=== PATIENT | female | born 1935 | race Caucasian/White ===

== ENCOUNTER 2020-02-05 12:33 | Emergency (ER) | payer OTHER, SELFPAY ==
[2020-02-05 12:34] VITALS: BP 148/64; PULSE 98; RESP 17; TEMP 37.2; O2SAT 98
[2020-02-05 13:03] LABS: Basophils Percent Auto 0.3 % (0.2-1.2); Eosinophils Percent Auto 0.5 % (0-4.4); Hematocrit 38.5 % (37.0-47.0); Hemoglobin 12.8 g/dL (12.0-15.0); Immature Granulocyte Absolute 0.02 K/mm3 (0.00-0.031); Immature Granulocyte Percent A 0.3 % (0-0.5); Lymphocytes Absolute Auto 1.02 K/mm3 (0.9-3.2); Lymphocytes Percent Auto 15.8 % (18.3-44.2); Mean Corpuscular HGB Conc 33.2 g/dl (32-36); Mean Corpuscular Hemoglobin 29.6 pg (26-34); Mean Corpuscular Volume 89.1 fl (80-100); Mean Platelet Volume 10.5 fl (7.4-10.4); Monocytes Absolute Auto 0.8 K/mm3 (0.1-0.6); Monocytes Percent Auto 11.9 % (2.6-8.5); Neutrophils Absolute Auto 4.6 K/mm3 (1.3-6.7); Neutrophils Percent Auto 71.2 % (45.5-73.1); Platelet Count Result 303 k/mm3 (150-375); Red Blood Count 4.32 M/mm3 (4.2-5.4); Red Cell Distribution Width 13.3 % (11.5-14.5); White Blood Count 6.5 K/mm3 (4.5-10.0)
[2020-02-05 13:07] LABS: Add Urine Microscopic? YES; Appearance Urine Clear (Clear); Bacteria Urine Trace /hpf; Bilirubin Urine Negative (Negative); Color Urine Yellow (Yellow); Glucose Urine UA Negative (Negative); Hyaline Casts Urine 20-29 /lpf; Ketones Urine Negative (Negative); Leukocyte Esterase Ur 3+ LEU/UL (Negative); Mucus Urine Few /lpf; Nitrate Urine Negative (Negative); Protein Urine Negative (Negative); Specific Grav Ur 1.017 (1.001-1.035); Squamous Epithelial Cell Urine Occasional /hpf (Few); Urobilinogen Urine Negative mg/dL (<2.0); WBC Clumps Urine Present /HPF; WBC Urine 51-75 /hpf
[2020-02-05 13:14] LABS: Blood Urine Negative (Negative)
[2020-02-05 13:18] LABS: Alanine Aminotransferase 15 U/L (4-35); Albumin Level 4.6 g/dL (3.5-5.1); Alkaline Phosphatase 87 U/L (38-126); Anion Gap 13.2 mmol/L (7-16); Aspartate Amino Transferase 37 U/L (14-36); Bilirubin,Total 0.8 mg/dL (0.2-1.3); Blood Urea Nitrogen 15 mg/dL (7-17); Calcium 9.1 mg/dL (8.4-10.2); Carbon Dioxide 29 mmol/L (22-30); Chloride 94 mmol/L (98-107); Estimated CRCL calculation 43 ml/min; Estimated Glomerular Filt Rate > 60; Glucose 124 mg/dL (65-105); Potassium 4.2 mmol/L (3.4-5.0); Sodium 132 mmol/L (137-145)
--- NOTE | 2020-02-05 14:00 | ED.ABDPAIN ---
HPI - Abdominal Pain General Chief Complaint: Urogenital-Female Stated Complaint: ?? UTI Time Seen by Provider: 02/05/20 13:42 Source: patient and family History of Present Illness HPI narrative: Frequent painful urination for the last 2 days. Patient denies any fever, chills, nausea, vomiting. Related Data Allergies Allergy/AdvReac Type Severity Reaction Status Date / Time Penicillins Allergy Unknown Unknown Verified 02/05/20 12:40 Review of Systems Review of Systems: Narrative: CONSTITUTIONAL: Denies fever, chills, or sweats. EYES: Denies visual changes, redness, or discharge. ENT: Denies rhinorrhea, congestion, sore throat, or otalgia. CARDIOVASCULAR: Denies chest pain, palpitations, or edema. RESPIRATORY: Denies cough or dyspnea. GASTROINTESTINAL: Denies abdominal pain, nausea, vomiting, or diarrhea. GENITOURINARY: Denies dysuria or hematuria. SKIN: Denies rash or itching. MUSCULOSKELETAL: Denies back pain, joint pain, or myalgia. NEUROLOGIC: Denies headache, numbness, or weakness. PSYCHIATRIC: Denies anxiety or depression. [facility] Family History Family History Father Cerebrovascular accident, Onset Age: 94 Sibling Family history of malignant neoplasm, Onset Age: 86 Acute myocardial infarction, Onset Age: 82 Family history of lung disease, Onset Age: 74 Social History Social History Smoking status: Never smoker Alcohol intake: never Gender identity (if verbalized by the patient): Female Exam Narrative: Exam Narrative: General appearance: Well-developed, well-nourished Skin: Normal color Head: Normocephalic, nontraumatic Eyes: Clear conjunctiva ENT: Oropharynx normal, ears normal, nose normal Neck: Supple, nontender Chest and respiratory: Airway patent, no respiratory distress, no accessory muscle use Heart: Regular rate/rhythm Abdomen: Soft, nontender, no organomegaly, quiet bowel sounds Vascular: Normal peripheral pulses, normal capillary refill. Musculoskeletal: Normal range of motion, nontender back Neurologic: Alert and oriented ?3, [employer] is normal as tested, no gross motor deficit Course Course Emergency Course: Stable Vital Signs Vital signs: Vital Signs Temperature 37.2 C 02/05/20 12:34 Pulse Rate 98 02/05/20 12:34 Respiratory Rate 17 02/05/20 12:34 Blood Pressure 148/64 H 02/05/20 12:34 Pulse Oximetry 98 02/05/20 12:34 Temperature 37.2 C 02/05/20 12:34 Pulse Rate 98 02/05/20 12:34 Respiratory Rate 17 02/05/20 12:34 Blood Pressure 148/64 H 02/05/20 12:34 Pulse Oximetry 98 02/05/20 12:34 MDM - Abdominal Pain MDM Narrative Medical decision making narrative: Urinary tract infection is my concern. Patient does not have fever, chills, nausea, vomiting. Oral antibiotic would be appropriate for discharge. Lab Data Result diagrams: 02/05/20 12:54 02/05/20 12:54 Labs: Lab Results 02/05/20 02/05/20 02/05/20 Range/Units 12:54 12:54 12:54 WBC 6.5 (4.5-10.0) K/mm3 RBC 4.32 (4.2-5.4) M/mm3 Hgb 12.8 (12.0-15.0) g/dL Hct 38.5 (37.0-47.0) % MCV 89.1 (80-100) fl MCH 29.6 (26-34) pg MCHC 33.2 (32-36) g/dl RDW 13.3 (11.5-14.5) % Plt Count 303 (150-375) k/mm3 MPV 10.5 H (7.4-10.4) fl Immature Gran % (Auto) 0.3 (0-0.5) % Neut % (Auto) 71.2 (45.5-73.1) % Lymph % (Auto) 15.8 L (18.3-44.2) % Smith % (Auto) 11.9 H (2.6-8.5) % Eos % (Auto) 0.5 (0-4.4) % Baso % (Auto) 0.3 (0.2-1.2) % Lymph # (Auto) 1.02 (0.9-3.2) K/mm3 Smith # (Auto) 0.8 H (0.1-
[2020-02-05] MEDS: NITROFURANTOIN MONOHYD MACROCR 100 MG CAP PO (14:19)
[2020-02-05] MEDS: PHENAZOPYRIDINE HCL 100 MG TABLET 200 MG PO (14:19)
[2020-02-05 14:30] VITALS: BP 146/73; PULSE 72; RESP 15; O2SAT 99
== END 2020-02-05 14:31 | disposition home or self-care (01) ==
PROVIDERS: Emergency Medicine; Emergency Provider Emergency Medicine; PCP Emergency Medicine
DX: N30.00 Acute cystitis without hematuria (principal)
CPT/HCPCS: 36415; 80053; 81001; 85025; 87077; 87086; 87088; 87186; 99283; A9270

== ENCOUNTER 2020-09-18 13:58 | Outpatient (CLI) | payer OTHER, MEDICARE, SELFPAY | END 2020-09-18 13:59 | disposition home or self-care (01) | LOC: ANHCOVIDVC 13:58 | PROVIDERS: PCP Emergency Medicine | DX: Z23 Encounter for immunization (principal) | CPT/HCPCS: 0001A; 91300 ==

== ENCOUNTER 2020-10-09 14:08 | Outpatient (CLI) | payer OTHER, MEDICARE, SELFPAY | END 2020-10-09 14:09 | disposition home or self-care (01) | LOC: ANHCOVIDVC 14:08 | PROVIDERS: PCP Emergency Medicine | DX: Z23 Encounter for immunization (principal) | CPT/HCPCS: 0002A; 91300 ==

== ENCOUNTER 2021-05-05 13:15 | Outpatient (CLI) | payer OTHER, SELFPAY ==
[2021-05-05 14:21] LABS: Alanine Aminotransferase 16 U/L (4-35); Albumin Level 4.8 g/dL (3.5-5.1); Alkaline Phosphatase 100 U/L (38-126); Anion Gap 7 mmol/L (8-16); Aspartate Amino Transferase 36 U/L (14-36); Bilirubin,Total 0.4 mg/dL (0.2-1.3); Blood Urea Nitrogen 17 mg/dL (7-17); Calcium 9.9 mg/dL (8.4-10.2); Carbon Dioxide 33 mmol/L (22-30); Chloride 99 mmol/L (98-107); Estimated Glomerular Filt Rate > 60; Glucose 133 mg/dL (65-110); Potassium 3.9 mmol/L (3.4-5.0); Sodium 139 mmol/L (137-145)
[2021-05-08 14:19] LABS: Vitamin D 1,25 (OH)2 Total 36 pg/mL (18-72); Vitamin D2 1,25 (OH)2 <8 pg/mL; Vitamin D3 1,25 (OH)2 36 pg/mL
== END 2021-05-05 13:16 | disposition home or self-care (01) ==
PROVIDERS: PCP Emergency Medicine; Visit Provider Emergency Medicine
DX: E78.5 Hyperlipidemia, unspecified (principal); E55.9 Vitamin D deficiency, unspecified
CPT/HCPCS: 36415; 80053; 82652

== ENCOUNTER 2021-11-15 11:46 | Outpatient (CLI) | payer OTHER, SELFPAY ==
--- NOTE | ~2021-11-15 | XR_ITS ---
EXAMINATION: XR chest 2V DATE: 11/15/2021 12:25 INDICATION: Right-sided chest pain TECHNIQUE: AP and lateral views of the chest are obtained. COMPARISON: 09/22/2015 FINDINGS: There is an ill-defined masslike opacity of the right upper lobe with associated volume los s. There is a nodule of the right lower lobe. There are also nodules in the left lung base. A small r ight pleural effusion is present. There is no pneumothorax. The cardiomediastinal silhouette is junaid l. IMPRESSION: 1. Ill-defined opacity of the right lower lobe and multiple lung nodules raising concern for malignan cy, metastatic versus primary. Differential includes multifocal pneumonia. Further evaluation with CT of the chest is recommended. 2. Small right pleural effusion. Reviewed, dictated and finalized at location A. IMPRESSION: 1. Ill-defined opacity of the right lower lobe and multiple lung nodules jeanne molina concern for malignancy, metastatic versus primary. Differential includes mult ifocal pneumonia. Further evaluation with CT of the chest is recommended. 2. Small right pleural effusion.
[2021-11-15 13:30] LABS: Basophils Percent Auto 0.1 % (0.2-1.2); Eosinophils Percent Auto 0.1 % (0-4.4); Hematocrit 31.2 % (37.0-47.0); Hemoglobin 10.6 g/dL (12.0-15.0); Immature Granulocyte Absolute 0.09 K/mm3 (0.00-0.031); Immature Granulocyte Percent A 0.6 % (0-0.5); Lymphocytes Absolute Auto 0.32 K/mm3 (0.9-3.2); Lymphocytes Percent Auto 2.3 % (18.3-44.2); Mean Corpuscular Hemoglobin 28.9 pg (26-34); Mean Platelet Volume 8.7 fl (7.4-10.4); Monocytes Absolute Auto 1.1 K/mm3 (0.1-0.6); Monocytes Percent Auto 7.6 % (2.6-8.5); Neutrophils Absolute Auto 12.4 K/mm3 (1.3-6.7); Neutrophils Percent Auto 89.3 % (45.5-73.1); Platelet Count Result 522 k/mm3 (150-375); Red Blood Count 3.67 M/mm3 (4.2-5.4); Red Cell Distribution Width 12.1 % (11.5-14.5); White Blood Count 13.9 K/mm3 (4.5-10.0)
[2021-11-15 13:55] LABS: Alanine Aminotransferase 12 U/L (4-35); Albumin Level 3.6 g/dL (3.5-5.1); Alkaline Phosphatase 117 U/L (38-126); Anion Gap 7 mmol/L (8-16); Aspartate Amino Transferase 25 U/L (14-36); Bilirubin,Total 0.6 mg/dL (0.2-1.3); Blood Urea Nitrogen 8 mg/dL (7-17); Calcium 8.5 mg/dL (8.4-10.2); Carbon Dioxide 29 mmol/L (22-30); Chloride 83 mmol/L (98-107); Estimated Glomerular Filt Rate > 60; Glucose 116 mg/dL (65-110); Potassium 3.7 mmol/L (3.4-5.0); Sodium 119 mmol/L (137-145)
[2021-11-18 12:16] LABS: Vitamin D 1,25 (OH)2 Total 78 pg/mL (18-72); Vitamin D2 1,25 (OH)2 <8 pg/mL; Vitamin D3 1,25 (OH)2 78 pg/mL
== END 2021-11-15 11:47 | disposition home or self-care (01) ==
PROVIDERS: PCP Emergency Medicine; Visit Provider Emergency Medicine
DX: R53.83 Other fatigue (principal); R07.9 Chest pain, unspecified; Z13.6 Encounter for screening for cardiovascular disorders; E55.9 Vitamin D deficiency, unspecified; R91.8 Other nonspecific abnormal finding of lung field; J90 Pleural effusion, not elsewhere classified
CPT/HCPCS: 36415; 71046; 80053; 82652; 84443; 85025

== ENCOUNTER 2021-11-15 15:51 | Inpatient (IN) | payer OTHER, SELFPAY ==
[2021-11-15] VITALS (11 sets, daily range): BP systolic 118–146; BP diastolic 50–70; PULSE 87–105; RESP 16–29; TEMP 36.6–38.1; O2SAT 93–98; BMI 19.6; BMI 21.5
--- NOTE | ~2021-11-15 | XR_ITS ---
EXAMINATION: XR chest 1V portable DATE: 11/22/2021 16:55 INDICATION: One hour post percutaneous right lung biopsy TECHNIQUE: frontal view of the chest was obtained. COMPARISON: Chest radiograph dated 11/23/2019 2. FINDINGS: Right upper extremity peripherally inserted central venous catheter (PICC) tip at the caudal superio r vena cava. No interval change in a large masslike opacity right midlung zone with multiple smaller bilateral nodules in the mid and lower lung zones suspicious for primary bronchogenic carcinoma and a ssociated metastatic disease. Tiny right pleural effusion. Calcified nodules in the left midlung zone with calcite left hilar lymph nodes consistent with old granulomatous disease. No pneumothorax. Card ial mediastinal silhouette is normal. IMPRESSION: 1. No pneumothorax post right lung percutaneous biopsy. 2. Large right upper lobe mass with multiple smaller pulmonary nodules in the bilateral mid and lower lung zones suspicious for primary bronchogenic carcinoma and associated metastatic disease. Post obs tructive pneumonia not excludable in the right upper lobe. Reviewed, dictated and finalized at location A. IMPRESSION: 1. No pneumothorax post right lung percutaneous biopsy. 2. Large right upper lobe mass with multiple smaller pulmonary nodules in the b ilateral mid and lower lung zones suspicious for primary bronchogenic carcinoma and associated metastatic disease. Post obstructive pneumonia not excludable i n the right upper lobe.
--- NOTE | ~2021-11-15 | XR_ITS ---
EXAMINATION: XR barium swallow modified DATE: 11/24/2021 11:42 INDICATION: Cough TECHNIQUE: Modified barium esophagram was performed by myself to administered fluoroscopy, in conjun ction with speech pathologist who administered barium in varying consistencies as per speech patholog ist documentation. This was recorded on tape. A single fluoroscopic spot image was recorded. The DAP for this procedure was 0.95 Gycm2. Fluoroscopy exposure time was 1.7 minutes. FINDINGS: Oral stage: Adequate function. Pharyngeal phase: Adequate function. Laryngeal penetration: None. Aspiration: None. Laryngeal sensitivity: Not applicable. IMPRESSION: Unremarkable modified barium swallow. Please refer to speech pathologist findings and [facility] feeding recommendations. Reviewed, dictated and finalized at location A. IMPRESSION: Unremarkable modified barium swallow. Please refer to speech pathol ogist findings and specific feeding recommendations.
--- NOTE | ~2021-11-15 | CT_ITS ---
EXAMINATION: CT biopsy lung w/imaging DATE: 11/22/2021 15:41 INDICATION: Multiple lung masses TECHNIQUE: The procedure including the risks and benefits was discussed with the patient. Risks discu ssed included infection, approximately 1/20 risk of symptomatic hemorrhage beyond mild hemoptysis, ap proximately 1/3 risk of pneumothorax, and approximately 1/10 risk of pneumothorax severe enough to wa rrant chest tube placement. The patient understood the risks and agreed to proceed. The patient was p laced in the left lateral decubitus position. The skin overlying the lateral right chest wall was pr epped and draped in sterile fashion. Anesthetic was administered with 1% lidocaine subcutaneously. A 19 gauge outer needle was advanced under CT guidance to the lesion of interest. A 20 gauge core bio psy needle was then used to obtain 4 core biopsy specimens. The needle was removed and the entry site was cleaned and dressed. There were no immediate complications. The dose-length product was 107.61 mGy-cm. FINDINGS: CT images demonstrate the outer needle tip just within a 3.6 x 2.3 cm pleural-based mass in the right lower lobe. There are multiple additional bilateral pulmonary nodules as well as a larger region of consolidation in the posterior segment of the right upper lobe. IMPRESSION: 1. Successful CT-guided biopsy of a 3.6 x 2.3 cm pleural-based mass in the right lower lobe. Reviewed, dictated and finalized at location A. IMPRESSION: 1. Successful CT-guided biopsy of a 3.6 x 2.3 cm pleural-based mass in the righ t lower lobe.
--- NOTE | ~2021-11-15 | XR_ITS ---
EXAMINATION: XR chest 1V portable INDICATION: Pneumonia and shortness of breath TECHNIQUE: Portable AP chest at 1202 hours COMPARISON: 11/26/2021 FINDINGS: A right upper extremity PICC ends with its tip in the midsuperior vena cava. Right upper lo be consolidation persists but is slightly improved. Multiple bilateral pulmonary nodules persist, faraz e of which have decreased in size. There is no pleural effusion or pneumothorax. The cardiomediastina l silhouette is normal. IMPRESSION: 1. Interval decrease in size of the right upper lobe consolidation and multiple pulmonary nodules, li tamra infection given the results of recent lung biopsy. Continued radiographic follow-up to resolutio n is recommended. Reviewed, dictated and finalized at location A. IMPRESSION: 1. Interval decrease in size of the right upper lobe consolidation and multiple pulmonary nodules, likely infection given the results of recent lung biopsy. C ontinued radiographic follow-up to resolution is recommended.
--- NOTE | ~2021-11-15 | XR_ITS ---
EXAMINATION: XR chest 1V DATE: 11/22/2021 15:46 INDICATION: Status post right lung biopsy TECHNIQUE: frontal view of the chest was obtained. COMPARISON: Chest radiograph dated 11/15/2021 FINDINGS: Right upper extremity peripherally inserted central venous catheter (PICC) tip at the caudal superio r vena cava. Persistent large triangular opacity in the right midlung zone along with several additio nal scattered smaller nodular opacities in the bilateral mid and lower lung zones. Additional increas ed indistinct interstitial pattern in the bilateral lower lung zones. Very small right pleural effusi on. No pneumothorax or left-sided pleural effusion. The cardiomediastinal silhouette is normal. IMPRESSION: 1. No pneumothorax post right lung percutaneous biopsy. 2. Large masslike opacity in right midlung zone and multiple smaller bilateral pulmonary nodules conc erning for malignancy/metastatic disease. 3. Increased interstitial pattern in the bilateral lower lung zones likely related to bronchiectatic changes involving the lingula, right middle and bilateral lower lobes on prior CT. 4. Very small right pleural effusion. Reviewed, dictated and finalized at location A. IMPRESSION: 1. No pneumothorax post right lung percutaneous biopsy. 2. Large masslike opacity in right midlung zone and multiple smaller bilateral pulmonary nodules concerning for malignancy/metastatic disease. 3. Increased interstitial pattern in the bilateral lower lung zones likely rela glenny to bronchiectatic changes involving the lingula, right middle and bilateral lower lobes on prior CT. 4. Very small right pleural effusion.
--- NOTE | ~2021-11-15 | CT_ITS ---
EXAMINATION: CT brain wo con DATE: 11/16/2021 09:24 INDICATION: Lung mass. Hyponatremia. TECHNIQUE: Computed tomography (CT) of the head was performed without intravenous contrast. The mA wa s adjusted according to patient size. Iterative reconstruction technique was employed. The dose-lengt h product was 605.33 mGy-cm. COMPARISON: None FINDINGS: There are scattered areas of low attenuation in the cerebral white matter. There is no intr acranial hemorrhage, acute infarction, or abnormal intracranial mass lesion. The ventricles are junaid l in size. There are likely changes of ocular lens replacement surgeries. There is mild mucosal thick ening in the ethmoid sinuses. The mastoid air cells are normal. IMPRESSION: 1. Moderate nonspecific cerebral white matter disease, which likely represents chronic small vessel i schemic disease. Reviewed, dictated and finalized at location D. IMPRESSION: 1. Moderate nonspecific cerebral white matter disease, which likely represents chronic small vessel ischemic disease.
--- NOTE | ~2021-11-15 | XR_ITS ---
EXAMINATION: XR chest 1V portable INDICATION: Shortness of breath TECHNIQUE: Portable AP chest at 0547 hours COMPARISON: 11/22/2021 FINDINGS: There is unchanged consolidation in the right upper lobe. In addition, multiple bilateral p ulmonary nodules are stable. A right upper extremity PICC ends with its tip in the midsuperior vena c katherine. There is a small right pleural effusion. The cardiomediastinal silhouette is normal. There is no pneumothorax. IMPRESSION: 1. Stable right upper lobe consolidation multiple bilateral pulmonary nodules, consistent with infect ion given the results of recent lung biopsy. An area of primary bronchogenic carcinoma in one of the nodules or masses remains a possibility. Radiographic follow-up to resolution is recommended. Reviewed, dictated and finalized at location A. IMPRESSION: 1. Stable right upper lobe consolidation multiple bilateral pulmonary nodules, consistent with infection given the results of recent lung biopsy. An area of p rimary bronchogenic carcinoma in one of the nodules or masses remains a possibi lity. Radiographic follow-up to resolution is recommended.
--- NOTE | ~2021-11-15 | CT_ITS ---
EXAMINATION: CT abdomen pelvis w con INDICATION: Hyponatremia, likely lung cancer TECHNIQUE: Computed tomographic images of the abdomen and pelvis were obtained after the administrati on of 100 cc of Omnipaque 350 intravenous contrast. The dose-length product (DLP) was 241.34 mGy-cm. Automated exposure control and iterative reconstruction technique were employed. COMPARISON: 06/15/2014 FINDINGS: There is a small left pleural effusion. There are multiple nodules of the visualized lower lobes including enhancing pleural-based nodules medially in the bilateral lung bases. Cysts of the li espinoza measure up to 5.6 cm in the left hepatic lobe. Punctate calcifications in an otherwise normal spl een likely represent healed granulomatous disease. The pancreas, gallbladder, and adrenal glands are normal. Cysts of the kidneys measure up to 2.1 cm on the right. No pathologically enlarged abdominal or pelvic lymph nodes are identified. There is no free intraperitoneal gas or evidence of bowel obstr uction. There is moderate lumbar spondylosis. IMPRESSION: 1. No acute findings of the abdomen or pelvis. 2. Multiple nodules of the visualized lung bases, consistent with metastatic disease. Reviewed, dictated and finalized at location A. IMPRESSION: 1. No acute findings of the abdomen or pelvis. 2. Multiple nodules of the visualized lung bases, consistent with metastatic di sease.
--- NOTE | ~2021-11-15 | XR_ITS ---
EXAMINATION: XR chest 1V portable DATE: 12/04/2021 05:52 INDICATION: Bilateral pulmonary nodules TECHNIQUE: frontal view of the chest was obtained. COMPARISON: Chest radiograph dated 11/15/[address] dated 12/01/2021 FINDINGS: Persistent moderate size region of consolidation in the right upper lobe. Several smaller peripheral predominant nodular opacities in the right mid to lower and left lower lung zones. Calcified nodule i n the left midlung zone consistent with old granulomatous disease. No pulmonary edema, pleural effusi on or pneumothorax. The cardiomediastinal silhouette is normal. Right upper extremity peripherally in serted central venous catheter (PICC) tip at the mid superior vena cava. IMPRESSION: 1. Stable diffuse nodular lung disease consistent with multifocal necrotizing pneumonia versus Epifanio 's granulomatosis. Reviewed, dictated and finalized at location A. IMPRESSION: 1. Stable diffuse nodular lung disease consistent with multifocal necrotizing p neumonia versus Epifanio's granulomatosis.
--- NOTE | ~2021-11-15 | CT_ITS ---
EXAMINATION: CT diagnostic chest wo con DATE: 11/15/2021 18:46 INDICATION: Lung mass on prior x-ray TECHNIQUE: Computed tomography (CT) of the chest was performed without intravenous contrast. Automate d exposure control and iterative reconstruction technique were employed. The dose-length product was 123.86 mGy-cm. COMPARISON: X-ray chest, same date. FINDINGS: Thoracic aorta: Mild ectasia and atherosclerotic calcification. Lung parenchyma and airways: Masslike consolidation in the posterior right upper lobe abutting the fi ssure, with surrounding ground glass opacity. Additional peripheral based consolidations present in t he bilateral medial lower lobes and peripheral lower lobes, with an air cyst or central cavitation in the right medial lower lobe. Innumerable bilateral pulmonary nodules within the lingula, right middl e lobe, and bilateral lower lobes. Scattered bronchiectasis. Thoracic inlet, axillae and chest wall: Unremarkable. Mediastinum: Subcentimeter mediastinal and hilar lymph nodes. Heart and pericardium: Mitral and aortic valve calcifications. Coronary artery calcifications: Mild. Pleura: Small right pleural effusion. Upper abdomen: Granulomatous splenic calcifications. Numerous hepatic cysts, several are only partial ly visualized.. Bones: No acute osseous finding. IMPRESSION: Pulmonary findings felt to most likely represent pulmonary malignancy with innumerable metastatic sat ellite nodules. Superimposed infection/infarction could have a similar appearance to the consolidated areas in the right posterior upper lung and bilateral medial lower lungs, and should be considered i n the differential. Reviewed, dictated and finalized at location K. IMPRESSION: Pulmonary findings felt to most likely represent pulmonary malignancy with innu merable metastatic satellite nodules. Superimposed infection/infarction could h ave a similar appearance to the consolidated areas in the right posterior upper lung and bilateral medial lower lungs, and should be considered in the differe ntial.
--- NOTE | ~2021-11-15 | CT_ITS ---
EXAMINATION:CT diagnostic chest wo con DATE: 12/01/2021 09:29 INDICATION: Pneumonia. TECHNIQUE: Computed tomography (CT) of the chest was performed without intravenous contrast. Automate d exposure control and iterative reconstruction technique were employed. The dose-length product (DLP ) was 152.42 mGy-cm. COMPARISON: Chest CT 11/15/2021 FINDINGS: There are airspace opacities in posterior segment right upper lobe. There are scattered nod ules and masses in the lungs with a peripheral and lower lung predominance. Some of the nodules are c avitary. Some of the nodules are improved, and some are worsened. There is bronchiectasis in the infe rior lungs, worst in lingula where there is cystic bronchiectasis. Calcified left lung nodules and ca lcified left hilar lymph nodes are consistent with old granulomatous disease. There is mild scarring at the lung apices. No pleural effusion. The heart size is normal. No pericardial effusion. A right u pper extremity peripherally inserted central venous catheter (PICC) is seen with tip at the superior cavoatrial junction. There are cysts in the liver measuring up to 4.6 cm. Calcifications in the splee n are consistent with old granulomatous disease. There is mild thoracic spondylosis. IMPRESSION: 1. Stable diffuse lung disease, consistent with multifocal necrotizing pneumonia versus [place]'s gra nulomatosis. 2. Bronchiectasis in the inferior lungs. Reviewed, dictated and finalized at location B. IMPRESSION: 1. Stable diffuse lung disease, consistent with multifocal necrotizing pneumoni a versus [place]'s granulomatosis. 2. Bronchiectasis in the inferior lungs.
[2021-11-15] MEDS: ACETAMINOPHEN 325 MG TABLET 650 MG PO (18:17)
--- NOTE | 2021-11-15 18:29 | ED.GENADULT ---
HPI - General Adult General Chief complaint: Recheck/Abnormal Lab/Rx Stated complaint: Sodium Levels Low Time Seen by Provider: 11/15/21 18:05 Source: RN notes reviewed History of Present Illness HPI narrative: Patient presents emergency department from home for low sodium. Patient states that she has not been feeling well for the past 1 week states has been feeling weak and tired and running low-grade fevers. She states that she initially had sinus pressure and drainage but that has improved she states she went to her PCP today and had lab work obtained showed a low sodium and was directed to come to the ER for further evaluation. States she is not taking Tylenol today. She denies any chest pain, cough, abdominal pain nausea vomiting diarrhea or any other symptoms Related Data Allergies Allergy/AdvReac Type Severity Reaction Status Date / Time Penicillins Allergy Unknown Unknown Verified 11/15/21 11:13 Review of Systems Review of Systems: Gen.: Reports fever ENT: Denies congestion Respiratory: Denies shortness of breath or cough CV: Denies chest pain or palpitations GI: Denies abdominal pain nausea, emesis or diarrhea denies burning, urgency, frequency or hematuria Musculoskeletal: Denies back pain or muscle pain Neuro: D reports weakness Skin: Denies rash Except as documented, all other systems reviewed and negative [facility] Past Medical History Medical History (Updated 11/15/21 @ 20:57 by Tommy Lux DO) Insomnia Osteoporosis Family History Family History Father Cerebrovascular accident, Onset Age: 94 Sibling Family history of malignant neoplasm, Onset Age: 86 Acute myocardial infarction, Onset Age: 82 Family history of lung disease, Onset Age: 74 Social History Social History Smoking status: Never smoker Alcohol intake: never Gender identity (if verbalized by the patient): Female Exam Narrative: APPEARANCE: No acute distress, nontoxic, resting in bed EYES: EOMI HEENT: Normocephalic, atraumatic, OMM RESPIRATORY: No respiratory distress Clear to auscultation bilaterally with no rhonchi wheezing or rales. CARDIOVASCULAR: Regular rate and rhythm without murmurs rubs or gallops. ABDOMINAL: Soft, nontender, nondistended, no rebound or guarding MUSCULOSKELETAl: Moves all extremities. No clubbing, cyanosis or edema. NEURO: Awake and alert. Following commands, speech normal, no focal deficits SKIN:: Warm, dry. No rashes lesions or abrasions PSYCHIATRIC: Normal affect/mood, Course Course Emergency Course: Reviewed old records. Patient was sodium of 119. Patient had chest x-ray today showing questionable mass versus pneumonia recommended CT chest will obtain in ED Discussed with Dr. Akins presentation work-up agrees with admission recommends no fluids at this time recommends consult with nephrology and pulmonology Discussed with Dr. Victor for pulmonary recommends Rocephin be added to Levaquin and will consult Discussed Dr. Dupont presentation work-up recommends at this time patient be fluid restricted to 1000 mL daily Discussed with patient and family results of workup and diagnosis. Discussed need for admission. Patient and family understand and agree to current treatment plan Vital Signs Vital signs: Vital Signs Temperature 100.5 F H 11/15/21 16:18 Pulse Rate 105 H 11/15/21 16:18 Respiratory Rate 18 11/15/21 16:18 Blood Pressure 134/50 L 11/15/21 16:18 Pulse Oximetry 96 11/15/21 16:18 Temperature 99.5 F 11/15/21 19:02 Pulse Rate 95 11/15/21 19:46 Respiratory Rate 29 H 11/15/21 19:46 Blood Pressure 118/62 11/15/21 19:46 Pulse Oximetry 95 11/15/21 19:46 Medical Decision Making Vital Signs Vital Signs: Vital Signs Temperature 100.5 F H 11/15/21 16:18 Pulse Rate 105 H 11/15/21 16:18 Respiratory Rate 18 11/15
--- NOTE | 2021-11-15 18:31 | ECG_ITS ---
Measurements Intervals [place] Rate: 103 P: 75 CO: 143 QRS: 33 QRSD: 90 T: 40 QT: 326 QTc: 427 Interpretive Statements SINUS TACHYCARDIA POSSIBLE LEFT ATRIAL ENLARGEMENT BORDERLINE ST ABNORMALITY- ANTERIOR/INF LEADS BASELINE ARTIFACT- I, III, AVR, AVL BORDERLINE ECG Electronically Signed On 11-15-2021 20:25:43 CDT by Jose Miguel Dennis D.O.
[2021-11-15 18:32] LABS: Appearance Urine Clear (Clear); Bilirubin Urine Negative (Negative); Blood Urine 1+ (Negative); Glucose Urine UA Negative (Negative); Ketones Urine 2+ mg/dL (Negative); Leukocyte Esterase Ur Negative LEU/UL (Negative); Nitrate Urine Negative (Negative); Protein Urine Trace mg/dL (Negative); Specific Grav Ur 1.025 (1.001-1.035); Urobilinogen Urine 0.2 mg/dL (<2.0); pH Urine 5.5 (5.0-9.0)
[2021-11-15 18:34] LABS: Add Urine Microscopic? YES; Color Urine Dark Yellow (Yellow)
--- NOTE | 2021-11-15 18:41 | PC.NURSE ---
Pt in CT scan at this time, step daughter at bedside.
[2021-11-15 18:43] LABS: Bacteria Urine Trace /hpf; Mucus Urine Rare /lpf; Squamous Epithelial Cell Urine Occasional /hpf (Few)
[2021-11-15 19:12] LABS: Basophils Percent Auto 0.2 % (0.2-1.2); Eosinophils Percent Auto 0.1 % (0-4.4); Hematocrit 29.6 % (37.0-47.0); Hemoglobin 10.3 g/dL (12.0-15.0); Immature Granulocyte Percent A 0.6 % (0-0.5); Lymphocytes Absolute Auto 0.52 K/mm3 (0.9-3.2); Lymphocytes Percent Auto 3.3 % (18.3-44.2); Mean Corpuscular HGB Conc 34.8 g/dl (32-36); Mean Corpuscular Volume 83.4 fl (80-100); Mean Platelet Volume 8.4 fl (7.4-10.4); Monocytes Absolute Auto 1.4 K/mm3 (0.1-0.6); Monocytes Percent Auto 8.7 % (2.6-8.5); Neutrophils Absolute Auto 13.5 K/mm3 (1.3-6.7); Neutrophils Percent Auto 87.1 % (45.5-73.1); Platelet Count Result 513 k/mm3 (150-375); Red Blood Count 3.55 M/mm3 (4.2-5.4); Red Cell Distribution Width 12.1 % (11.5-14.5); White Blood Count 15.5 K/mm3 (4.5-10.0)
[2021-11-15 19:23] LABS: INR 1.4; Prothrombin Time 16.2 Seconds (11.1-14.7)
[2021-11-15 19:24] LABS: Partial Thromboplastin Time 34.1 SECONDS (22.3-36.8)
[2021-11-15 19:29] LABS: Lactic Acid Reflex 0.9 mmol/L (0.7-2.0)
[2021-11-15 19:37] LABS: Alanine Aminotransferase 13 U/L (4-35); Albumin Level 3.4 g/dL (3.5-5.1); Alkaline Phosphatase 119 U/L (38-126); Anion Gap 6 mmol/L (8-16); Aspartate Amino Transferase 28 U/L (14-36); Bilirubin,Total 0.5 mg/dL (0.2-1.3); Blood Urea Nitrogen 8 mg/dL (7-17); Calcium 8.4 mg/dL (8.4-10.2); Carbon Dioxide 29 mmol/L (22-30); Chloride 84 mmol/L (98-107); Estimated CRCL calculation 52 ml/min; Estimated Glomerular Filt Rate > 60; Glucose 118 mg/dL (65-110); Magnesium 1.7 mg/dL (1.6-2.3); Potassium 3.9 mmol/L (3.4-5.0); Sodium 119 mmol/L (137-145)
[2021-11-15 20:17] LABS: SARS-CoV-2 RNA PCR Negative
--- NOTE | 2021-11-15 23:07 | PM.IMHP ---
H&P: HPI History of Present Illness Date/Time: 11/15/21 23:07 Chief Complaint: Hyponatremia, low grade fevers Narrative: 86 yo F PMHx of insomnia on . Presents from PCP with hyponatremia. Patient is slow to respond, but A&Ox3. She states she has not been feeling well and running low grade fevers for the past week. She though it was a sinus infection that was getting better. Patient went to her PCP's office today and was told she had a low sodium and was sent to the ED for further evaluation. Patient denies cough, however she then states she always has a small productive cough of white sputum. She denies SOB, CP, palpitations, n/v/d/c. Denies dysuria, hematuria, blood in stool. She reports poor appetite for months now. She also reports feeling hot at night. She states she has not lost weight, but has maintained and maybe even gained some weight. In ED labs remarkable for WBC 15.5, Hb 10.3, plt 513, sodium 119, chloride 84. UA poisitive for ketones, negative for leuks or nitrates. COVID PCR negative. CXR appears to show RLL mass with multiple lung nodules, malignancy vs multifocal PNA. Chest CT confirmed these findings with further suspicion for malignancy with metastatic satellite nodules. Blood cultures were drawn. Patient was given levaquin and rocephin. Review of Systems Review of Systems: All systems reviewed & are unremarkable except as noted in HPI and below PMFSH Past Medical History Medical History (Updated 11/15/21 @ 23:36 by Teodoro Akins DO) Insomnia Osteoporosis Family History Family History Father Cerebrovascular accident, Onset Age: 94 Sibling Family history of malignant neoplasm, Onset Age: 86 Acute myocardial infarction, Onset Age: 82 Family history of lung disease, Onset Age: 74 Social History Social History Smoking status: Never smoker Alcohol intake: never Substance use: never Gender identity (if verbalized by the patient): Female Spiritual care concerns: No Meds Home Medications and Allergies Home Medications Medication Instructions Recorded Confirmed Type eszopiclone 3 mg tablet 3 mg PO .qhs PRN #30 tablet 09/20/21 11/15/21 Rx Allergies Allergy/AdvReac Type Severity Reaction Status Date / Time Penicillins Allergy Unknown Unknown Verified 11/15/21 11:13 Vital Signs Vital Signs - 24 hr 11/15/21 16:18 11/15/21 19:02 11/15/21 19:32 Temperature 100.5 F H 99.5 F Pulse Rate 105 H 97 Respiratory Rate 18 24 H Blood Pressure 134/50 L Pulse Oximetry 96 94 11/15/21 19:45 11/15/21 19:46 11/15/21 19:47 Temperature Pulse Rate 92 95 92 Respiratory Rate 27 H 29 H 26 H Blood Pressure 118/62 Pulse Oximetry 93 95 94 11/15/21 20:37 11/15/21 21:14 11/15/21 21:16 Temperature 97.8 F Pulse Rate 98 93 91 Respiratory Rate 25 H 25 H 27 H Blood Pressure 124/58 L Pulse Oximetry 95 95 94 11/15/21 21:17 11/15/21 22:00 Temperature 97.9 F Pulse Rate 95 87 Respiratory Rate 27 H 16 Blood Pressure 146/70 H Pulse Oximetry 94 98 Exam Const: General: no acute distress Other: thin, frail HENMT: Mouth: Yes dry mucous membranes Eyes: General: appearance normal, both eyes and all related structures Resp: Auscultation: clear to auscultation bilaterally Cardio: Rate: regular rate Rhythm: regular rhythm GI: GI Palp: Yes Soft to palpation Auscultation: normal bowel sounds Other: non tender, non distended Skin: Other: poor skin turgor. Multiple lesions noted on back ?seborrhaic kerratosis vs leser treylat sign Neuro: Other: slow to respond, A&Ox3 Extrem: Right lower extremity: normal to inspection Left lower extremity: normal to inspection Psych: Other: flat affect H&P: Results Labs Labs: Short CBC 11/15/21 Range/Units 18:59 WBC 15.5 H (4.5-10.0) K/mm3 Hgb 10.3 L (12.0-15.
[2021-11-16] VITALS (10 sets, daily range): BP systolic 130–148; BP diastolic 59–62; PULSE 80–115; RESP 16–18; TEMP 36.4–36.8; O2SAT 95–97
[2021-11-16] MEDS: SODIUM CHLORIDE 0.9% IV 1,000 ML 90 ML IV CONT (01:55)
[2021-11-16] MEDS: ZOLPIDEM TARTRATE (*CRX) 5 MG TABLET PO ×3 (02:13→23:26)
[2021-11-16 04:48] LABS: Sodium Urine Random 104 meq/L
--- NOTE | 2021-11-16 05:31 | ADMGEN ---
2151 This patient, Maggie Gordon, was admitted to [facility] Surg Room 301-01. Patient/family oriented to hospital policies and general routines including ID bracelet, bed and alarms, visiting hours, pain management, procedures, bathroom and other care routines, personal items, smoking policy, room service/diet, and visiting hours. Information on how to activate the Rapid Response Team has been discussed. Patient/Family are encouraged to report perceived risks to care and to ask questions if they do not understand what they are told or what they should do.
[2021-11-16 06:15] LABS: Basophils Percent Auto 0.1 % (0.2-1.2); Hematocrit 29.3 % (37.0-47.0); Hemoglobin 10.1 g/dL (12.0-15.0); Immature Granulocyte Absolute 0.13 K/mm3 (0.00-0.031); Immature Granulocyte Percent A 0.8 % (0-0.5); Lymphocytes Absolute Auto 0.39 K/mm3 (0.9-3.2); Lymphocytes Percent Auto 2.4 % (18.3-44.2); Mean Corpuscular HGB Conc 34.5 g/dl (32-36); Mean Corpuscular Hemoglobin 28.7 pg (26-34); Mean Corpuscular Volume 83.2 fl (80-100); Mean Platelet Volume 8.7 fl (7.4-10.4); Monocytes Absolute Auto 1.5 K/mm3 (0.1-0.6); Neutrophils Absolute Auto 14.4 K/mm3 (1.3-6.7); Neutrophils Percent Auto 87.7 % (45.5-73.1); Platelet Count Result 507 k/mm3 (150-375); Red Blood Count 3.52 M/mm3 (4.2-5.4); Red Cell Distribution Width 11.9 % (11.5-14.5); White Blood Count 16.4 K/mm3 (4.5-10.0)
[2021-11-16 06:38] LABS: Anion Gap 6 mmol/L (8-16); Blood Urea Nitrogen 5 mg/dL (7-17); Calcium 7.8 mg/dL (8.4-10.2); Carbon Dioxide 28 mmol/L (22-30); Chloride 83 mmol/L (98-107); Estimated CRCL calculation 64 ml/min; Estimated Glomerular Filt Rate > 60; Glucose 108 mg/dL (65-110); Potassium 3.6 mmol/L (3.4-5.0); Sodium 117 mmol/L (137-145)
[2021-11-16 06:39] LABS: Iron 24 ug/dL (37-170)
[2021-11-16 06:48] LABS: Percent Iron Saturation 10 % (20-50)
--- NOTE | 2021-11-16 07:56 | PM.CNNEP ---
Assessment and Plan Additional Plan 1. The patient has hyponatremia. The patient has a pulmonary mass on her CT scan. 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 There are other considerations however. Hormonal issues can cause this. Will check a TSH and a cortisol. LACE SEWER issues can cause this as well. Because of the pulmonary mass we should probably do a CT of the brain to make sure that she does not have Mets there. Medicines can do this. Lunesta does not however. She is not on any PPI, antidepressant, diuretic, or narcotics. The patient is on 1000cc fluid restriction. She is getting saline. This is going at 125. The sodium dropped to 117 overnight with the fluids. I think we can stop this. Will rely solely on the fluid restriction. 2. 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 Dr. Victor has been consulted. 3. The patient has insomnia. She was given Ambien last night. 4. The patient is thin but this is pretty much how she is, she says. . 5. She is recovering from a sinus infection. She is getting antibiotics in case there might be an infectious component to her lung mass. History of Present Illness Reason for Consult Consult date: 11/16/21 Chief Complaint Chief complaint: Hyponotremia, commity-acquired pneumonia, lung mas History of Present Illness Narrative: Maggie is a very pleasant 86-year-old lady who has been healthy most of her life. She says that in the last few months she has had problems with sleeping. Her primary care physician gave her Lunesta and this does not work very well. She still takes that every night. This is her only medication. About a week or so ago the patient developed a sinus infection. She got a Z-Eliot from her primary care physician and this helped her a little bit. However over that week the patient has become progressively more weak. She does not have shortness of breath. She is not coughing up blood. She has not had any weight loss. He in fact she gained a few lb over the last month. She saw Dr. Vo again yesterday and he check some blood work and she was told to go to the ER because of a low sodium. The patient says that she drinks about a qt per day. She has not been eating very well in the last week. No confusion, twitching, or seizures. She has just been very weak. She was evaluated in the emergency room. She was found to have a low sodium. Chest x-ray showed a mass CT scan showed a mass suggestive of malignancy. She was admitted to the hospital. Called me about her last night and I told to just give her fluid restriction. She was started on some saline later in the evening because she had been eating and they were worried that she might be dry. She is not very hungry right now. Review of Systems Constitutional: Constitutional: Reports no additional constitutional complaints Eyes: Eyes: Reports no additional eye complaints ENT: Reports system reviewed and no additional complaints, except as documented Cardiovascular: Cardiovascular: Reports no additional cardiovascular complaints Respiratory: Respiratory: Reports no additional respiratory complaints Gastrointestinal: Gastrointestinal: Reports no additional gastrointestinal complaints Genitourinary: Genitourinary: Reports no additional female genitourinary complaints Musculoskeletal: Musculoskeletal: Reports no additional musculoskeletal complaints Integumentary/Breasts: Skin/Breast: Reports system reviewed and no additional complaints, except as docu Neurologic: Reports system reviewed and no additional complaints, except as documented Psychiatric: Psychiatric: Reports no additional psychiatric complaints Endocrine: Endocrine: Reports no additional endocrine complaints PMFSH Past Medical History Medical History Insomnia Osteoporosis Family History Family History Father Cerebro
[2021-11-16] MEDS: ENOXAPARIN 40 MG/0.4 ML SYRINGE SUB-Q (08:50)
--- NOTE | 2021-11-16 09:45 | PM.IMPN ---
Progress Note: A&P Assessment and Plan (1) Acute hyponatremia: Code(s): E87.1 - Hypo-osmolality and hyponatremia Status: Acute Assessment and Plan: Probable acute and of chronic hyponatremia Monitor sodium level Free water restriction Nephrology consult (2) Lung mass: Code(s): R91.8 - Other nonspecific abnormal finding of lung field Status: Acute Assessment and Plan: No h/o tobacco abuse. Given CT and CXR finding, will c/s pulm for evaluation for biopsy of lesion and LN Pending pulmonology evaluation (3) Community acquired pneumonia: Code(s): J18.9 - Pneumonia, unspecified organism Status: Acute Assessment and Plan: Will treat as CAP with rocephin and azithro (Qtc 427). Blood cx pending. Check sputum cx if able to. COVID negative. Respriatory viral panel . Legionella Ag pending (4) Insomnia: Qualifiers: Insomnia type: unspecified Qualified Code(s): G47.00 - Insomnia, unspecified Code(s): G47.00 - Insomnia, unspecified Status: Acute Assessment and Plan: continue lunesta (5) Thrombocytosis: Code(s): D75.839 - Thrombocytosis, unspecified Status: Acute Assessment and Plan: potentially 2/2 underlying malginancy, continue to monitor (6) Anemia: Code(s): D64.9 - Anemia, unspecified Status: Acute Assessment and Plan: Probably anemia of chronic disease Follow iron studies, ferritin Subjective Date/time seen: 11/16/21 09:45 Interval history: 86 yo F PMHx of insomnia on lunesta. Presents from PCP with hyponatremia. Patient is slow to respond, but A&Ox3. She states she has not been feeling well and running low grade fevers for the past week. She though it was a sinus infection that was getting better. Patient went to her PCP's office today and was told she had a low sodium and was sent to the ED for further evaluation. At the ER chest x-ray shows lung mass CT scan of the chest shows possible metastatic lung disease concern for pneumonia also patient has hyponatremia Nephrology pulmonology was consulted patient was started on IV antibiotic CT scan of the abdomen showed liver cyst and kidney cysts Patient feels weak Patient denies fever headache chest pain I am seeing the patient for pneumonia Exam Narrative: Alert Chest decreased air entry bilateral Abdomen nontender nondistended CVS S1 + S2 Negative Lower extremity edema Objective Data Vital Signs Vital Signs: Vital Signs - 24 hr 11/15/21 16:18 11/15/21 19:02 11/15/21 19:32 Temperature 100.5 F H 99.5 F Pulse Rate 105 H 97 Respiratory Rate 18 24 H Blood Pressure 134/50 L Pulse Oximetry 96 94 11/15/21 19:45 11/15/21 19:46 11/15/21 19:47 Temperature Pulse Rate 92 95 92 Respiratory Rate 27 H 29 H 26 H Blood Pressure 118/62 Pulse Oximetry 93 95 94 11/15/21 20:37 11/15/21 21:14 11/15/21 21:16 Temperature 97.8 F Pulse Rate 98 93 91 Respiratory Rate 25 H 25 H 27 H Blood Pressure 124/58 L Pulse Oximetry 95 95 94 11/15/21 21:17 11/15/21 22:00 11/16/21 00:00 Temperature 97.9 F Pulse Rate 95 87 90 Respiratory Rate 27 H 16 Blood Pressure 146/70 H Pulse Oximetry 94 98 11/16/21 04:00 11/16/21 06:00 11/16/21 08:03 Temperature 97.5 F L Pulse Rate 103 H 97 Respiratory Rate 16 Blood Pressure 130/62 Pulse Oximetry 97 95 Intake/Output Intake/Output: Intake & Output 11/13/21 11/14/21 11/15/21 11/16/21 23:59 23:59 23:59 23:59 Intake Total 50 0 Output Total 100 1540 Balance -50 -1540 Meds/Results Medications: Active Medications Generic Name Dose Route Start Last Admin Trade Name Freq PRN Reason Stop Dose Admin Enoxaparin Sodium 40 mg 11/16/21 09:00 11/16/21 08:50 Enoxaparin 40 Mg/0.4 Ml Syringe SUB-Q 40 mg DAILY ZENON Administration Levofloxacin/Dextrose 750 mg in 150 mls @ 100 mls/hr 11/16/21 21:00 Levaquin 750 Mg/D5w 150 Ml IVPB Q24H SC
--- NOTE | 2021-11-16 10:12 | PM.CNPUL ---
Assessment and Plan Assessment and plan (1) Community acquired pneumonia: Code(s): J18.9 - Pneumonia, unspecified organism Status: Acute Assessment and Plan: Patient with fever, leukocytosis and a CT scan demonstrating multiple nodules some associated with surrounding ground-glass infiltrates. Will treat patient for community-acquired pneumonia with ceftriaxone and azithromycin at this time (started 11/15). Will follow patient's fever curve, leukocytosis and her clinical symptoms. (2) Lung mass: Code(s): R91.8 - Other nonspecific abnormal finding of lung field Status: Acute Assessment and Plan: Patient with multiple bilateral peripheral located pulmonary nodules. I am concerned about metastatic cancer and I have spoken with the radiologist. The plan will be to obtain a CT of the abdomen and pelvis with contrast looking for additional sites that may be more amenable to biopsy then the lungs. I spoke to the patient and she is interested in pursuing a biopsy in order to define her disease and provide her with treatment options. Will follow with you. History of Present Illness History of Present Illness Consult date: 11/16/21 Requesting physician: Diallo Bautista M.A., MD Reason for consult: lung mass Chief complaint: Hyponotremia, commity-acquired pneumonia, lung mas Narrative: 11/16/2021: This is a new pulmonary consult for lung nodules. 86 year old woman with a history of insomnia and osteoporosis and postnasal drip for many years presented to her primary physician on 11/05 with decreased appetite and postnasal drip. She was treated with a Z-Eliot, Claritin and Flonase and this resolved her postnasal drip. Patient re-presented on 11/15/2021 and labs were reordered which demonstrated a sodium of 119 in the patient was instructed to go to the emergency department. In the emergency department the patient complained of 1 week history of feeling fatigued, tired with intermittent fevers. Her sodium was 119 (Na on 05/05/21 is 139), white blood cell count was 15.5, her creatinine was 0.5, her COVID RT PCR test was negative, chest x-ray demonstrated right upper lobe consolidation with right middle and bilateral lower lobe nodules. CT scan of the chest demonstrated right upper lobe mass with adjacent infiltrate, multiple bilateral pleural based nodules in both lower lobes. Patient is COVID RT PCR test was negative. Her TSH was normal at 2.40. The patient was started on ceftriaxone, Levaquin and azithromycin and admitted to the hospital. The patient was treated with normal saline at 125/hr. at baseline the patient states she has no respiratory limitations in her activities of daily living but she is not overly active. Patient states the farther she walks is to her mailbox was about 50 yd and she does have some shortness of breath. She denies hematuria or blood in her stool. She states she has received a colonoscopy but it was many years ago. She also states she has had mammography he has in the past but this was many years ago. She cannot name the dates for these tests. 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 5/3 Currently the patient denies shortness of breath, cough, hemoptysis, or chest pain. Phlegm production is at her baseline of 2-3 clear phlegm expectorations a day. She is in no respiratory distress on room air with saturations 97%. Her white blood cell count is 16.4. Her sodium is 117. Overall she states she feels about the same or somewhat worse than yesterday. Review of Systems Review of Systems: All systems reviewed & are unremarkable except as noted in HPI and below Eyes: Eyes: Reports no additional eye complaints ENT: Reports system reviewed and no additional complaints, except as documented Cardiovascular: Cardiovascular: Rep
[2021-11-16 13:11] LABS: Anion Gap 6 mmol/L (8-16); Blood Urea Nitrogen 4 mg/dL (7-17); Calcium 7.8 mg/dL (8.4-10.2); Carbon Dioxide 26 mmol/L (22-30); Chloride 82 mmol/L (98-107); Estimated CRCL calculation 64 ml/min; Estimated Glomerular Filt Rate > 60; Glucose 101 mg/dL (65-110); Potassium 3.4 mmol/L (3.4-5.0); Sodium 114 mmol/L (137-145)
[2021-11-16 16:47] LABS: Sodium 114 mmol/L (137-145)
[2021-11-16 16:57] LABS: Blood Urea Nitrogen 4 mg/dL (7-17); Carbon Dioxide 27 mmol/L (22-30); Chloride 82 mmol/L (98-107); Estimated CRCL calculation 53 ml/min; Estimated Glomerular Filt Rate > 60; Glucose 102 mg/dL (65-110); Potassium 3.3 mmol/L (3.4-5.0)
[2021-11-16] MEDS: ACETAMINOPHEN 325 MG TABLET 650 MG PO (17:30)
[2021-11-16] MEDS: MAGNESIUM SULF 2 GM/WATER 50ML 2 GM/50 ML BAG IVPB (17:31)
[2021-11-16] MEDS: DEMECLOCYCLINE HCL 150 MG TABLET PO ×2 (17:31→20:20)
[2021-11-16 18:55] LABS: Anion Gap 3 mmol/L (8-16); Blood Urea Nitrogen 5 mg/dL (7-17); Calcium 7.6 mg/dL (8.4-10.2); Carbon Dioxide 28 mmol/L (22-30); Chloride 82 mmol/L (98-107); Estimated CRCL calculation 53 ml/min; Estimated Glomerular Filt Rate > 60; Glucose 110 mg/dL (65-110); Potassium 3.4 mmol/L (3.4-5.0); Sodium 113 mmol/L (137-145)
[2021-11-17] VITALS (10 sets, daily range): BP systolic 128–158; BP diastolic 52–64; PULSE 81–106; RESP 14–18; TEMP 36.2–37.2; O2SAT 94–96
[2021-11-17] MEDS: ACETAMINOPHEN 325 MG TABLET 650 MG PO (05:28)
[2021-11-17 06:29] LABS: Basophils Percent Auto 0.1 % (0.2-1.2); Eosinophils Percent Auto 0.1 % (0-4.4); Hematocrit 32.5 % (37.0-47.0); Immature Granulocyte Absolute 0.11 K/mm3 (0.00-0.031); Immature Granulocyte Percent A 0.8 % (0-0.5); Lymphocytes Absolute Auto 0.32 K/mm3 (0.9-3.2); Lymphocytes Percent Auto 2.3 % (18.3-44.2); Mean Corpuscular HGB Conc 33.8 g/dl (32-36); Mean Corpuscular Hemoglobin 28.6 pg (26-34); Mean Corpuscular Volume 84.6 fl (80-100); Mean Platelet Volume 8.5 fl (7.4-10.4); Monocytes Absolute Auto 1.2 K/mm3 (0.1-0.6); Monocytes Percent Auto 8.3 % (2.6-8.5); Neutrophils Absolute Auto 12.5 K/mm3 (1.3-6.7); Neutrophils Percent Auto 88.4 % (45.5-73.1); Platelet Count Result 530 k/mm3 (150-375); Red Blood Count 3.84 M/mm3 (4.2-5.4); Red Cell Distribution Width 11.8 % (11.5-14.5); White Blood Count 14.2 K/mm3 (4.5-10.0)
[2021-11-17 06:45] LABS: Alanine Aminotransferase 12 U/L (4-35); Alkaline Phosphatase 105 U/L (38-126); Anion Gap 5 mmol/L (8-16); Aspartate Amino Transferase 29 U/L (14-36); Bilirubin,Total 0.6 mg/dL (0.2-1.3); Blood Urea Nitrogen 7 mg/dL (7-17); Carbon Dioxide 30 mmol/L (22-30); Chloride 78 mmol/L (98-107); Estimated CRCL calculation 53 ml/min; Estimated Glomerular Filt Rate > 60; Glucose 97 mg/dL (65-110); Phosphorus 3.3 mg/dL (2.5-4.5); Potassium 3.5 mmol/L (3.4-5.0); Sodium 113 mmol/L (137-145)
[2021-11-17] MEDS: ONDANSETRON INJ 4 MG/2 ML VIAL IV PUSH (08:14)
--- NOTE | 2021-11-17 08:58 | PM.PNPUL ---
Progress Note: A&P Assessment and Plan (1) Community acquired pneumonia: Code(s): J18.9 - Pneumonia, unspecified organism Status: Acute Assessment and Plan: 11/16 Patient with fever, leukocytosis and a CT scan demonstrating multiple nodules some associated with surrounding ground-glass infiltrates. Will treat patient for community-acquired pneumonia with ceftriaxone and levaquin at this time (started 11/15). Will follow patient's fever curve, leukocytosis and her clinical symptoms. 11/17 Patient denies any respiratory complaints. She has no shortness of breath, cough, phlegm or hemoptysis. saturations are 96% on room air. She is afebrile. White blood cell count 14.2. Continue ceftriaxone and Levaquin at this time. (2) Lung mass: Code(s): R91.8 - Other nonspecific abnormal finding of lung field Status: Acute Assessment and Plan: 11/16 Patient with multiple bilateral peripheral located pulmonary nodules. I am concerned about metastatic cancer and I have spoken with the radiologist. The plan will be to obtain a CT of the abdomen and pelvis with contrast looking for additional sites that may be more amenable to biopsy then the lungs. I spoke to the patient and she is interested in pursuing a biopsy in order to define her disease and provide her with treatment options. 11/17 She does complain of nausea and weakness which are unchanged. She has been seen by renal for hyponatremia, possible SIADH from lung cancer, sodium is 113. NPO and scheduled for CT-guided biopsy of the right lung later today. Discussed with Dr. Bautista. Will follow with you. Subjective Date/time seen: 11/17/21 08:58 Interval history: 11/16/2021: This is a new pulmonary consult for lung nodules. 86 year old woman with a history of insomnia and osteoporosis and postnasal drip for many years presented to her primary physician on 11/05 with decreased appetite and postnasal drip. She was treated with a Z-Eliot, Claritin and Flonase and this resolved her postnasal drip. Patient re-presented on 11/15/2021 and labs were reordered which demonstrated a sodium of 119 in the patient was instructed to go to the emergency department. In the emergency department the patient complained of 1 week history of feeling fatigued, tired with intermittent fevers. Her sodium was 119 (Na on 05/05/21 is 139), white blood cell count was 15.5, her creatinine was 0.5, her COVID RT PCR test was negative, chest x-ray demonstrated right upper lobe consolidation with right middle and bilateral lower lobe nodules. CT scan of the chest demonstrated right upper lobe mass with adjacent infiltrate, multiple bilateral pleural based nodules in both lower lobes. Patient is COVID RT PCR test was negative. Her TSH was normal at 2.40. The patient was started on ceftriaxone, Levaquin and azithromycin and admitted to the hospital. The patient was treated with normal saline at 125/hr. at baseline the patient states she has no respiratory limitations in her activities of daily living but she is not overly active. Patient states the farther she walks is to her mailbox was about 50 yd and she does have some shortness of breath. She denies hematuria or blood in her stool. She states she has received a colonoscopy but it was many years ago. She also states she has had mammography he has in the past but this was many years ago. She cannot name the dates for these tests. 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 5/3 Currently the patient denies shortness of breath, cough, hemoptysis, or chest pain. Phlegm production is at her baseline of 2-3 clear phlegm expectorations a day. She is in no respiratory distress on room air with saturations 97%. Her white blood cell count is 16.4. Her sodium is 117. Overall she states she feels about the same
--- NOTE | 2021-11-17 09:08 | PM.IMPN ---
Progress Note: A&P Assessment and Plan (1) Acute hyponatremia: Code(s): E87.1 - Hypo-osmolality and hyponatremia Status: Acute Assessment and Plan: Probable acute and of chronic hyponatremia worsening today Monitor sodium level Free water restriction Nephrology consult (2) Lung mass: Code(s): R91.8 - Other nonspecific abnormal finding of lung field Status: Acute Assessment and Plan: No h/o tobacco abuse. Given CT and CXR finding, pulm for evaluation for biopsy of lesion and LN CT scan-guided lung biopsy 11/17/2021 (3) Community acquired pneumonia: Code(s): J18.9 - Pneumonia, unspecified organism Status: Acute Assessment and Plan: Continue Levaquin (4) Insomnia: Qualifiers: Insomnia type: unspecified Qualified Code(s): G47.00 - Insomnia, unspecified Code(s): G47.00 - Insomnia, unspecified Status: Acute Assessment and Plan: continue lunesta (5) Thrombocytosis: Code(s): D75.839 - Thrombocytosis, unspecified Status: Acute Assessment and Plan: potentially 2/2 underlying malginancy, continue to monitor (6) Anemia: Code(s): D64.9 - Anemia, unspecified Status: Acute Assessment and Plan: Probably anemia of chronic disease Follow iron studies, ferritin Subjective Date/time seen: 11/17/21 09:08 Interval history: 86 yo F PMHx of insomnia on . Presents from PCP with hyponatremia. Patient is slow to respond, but A&Ox3. She states she has not been feeling well and running low grade fevers for the past week. She though it was a sinus infection that was getting better. Patient went to her PCP's office today and was told she had a low sodium and was sent to the ED for further evaluation. At the ER chest x-ray shows lung mass CT scan of the chest shows possible metastatic lung disease concern for pneumonia also patient has hyponatremia Nephrology pulmonology was consulted patient was started on IV antibiotic CT scan of the abdomen showed liver cyst and kidney cysts discussed with pulmonology on 11/17/2021 CT scan-guided lung biopsy 11/17/2021 Patient feels weak Patient denies fever headache chest pain I am seeing the patient for pneumonia Exam Narrative: Alert Chest decreased air entry bilateral Abdomen nontender nondistended CVS S1 + S2 Negative Lower extremity edema Objective Data Vital Signs Vital Signs: Vital Signs - 24 hr 11/16/21 12:00 11/16/21 14:00 11/16/21 16:00 Temperature 97.8 F Pulse Rate 93 98 101 H Respiratory Rate 18 Blood Pressure 148/62 H Pulse Oximetry 96 11/16/21 20:00 11/16/21 22:00 11/17/21 00:00 Temperature 98.2 F Pulse Rate 80 88 90 Respiratory Rate 18 Blood Pressure 130/59 L Pulse Oximetry 95 11/17/21 04:00 11/17/21 05:32 11/17/21 07:54 Temperature 97.8 F Pulse Rate 87 103 H Respiratory Rate 18 Blood Pressure 158/64 H Pulse Oximetry 96 96 Intake/Output Intake/Output: Intake & Output 11/14/21 11/15/21 11/16/21 11/17/21 23:59 23:59 23:59 23:59 Intake Total 50 1240 300 Output Total 100 2240 402 Balance -50 -1000 -102 Meds/Results Medications: Active Medications Generic Name Dose Route Start Last Admin Trade Name Freq PRN Reason Stop Dose Admin Acetaminophen 650 mg 11/16/21 17:06 11/17/21 05:28 Acetaminophen 325 Mg Tablet PO 650 mg Q6H PRN Administration Mild Pain (1-3) or Fever Demeclocycline HCl 150 mg 11/16/21 17:00 11/16/21 20:20 Demeclocycline Hcl 150 Mg Tablet PO 150 mg QID ZENON Administration Enoxaparin Sodium 40 mg 11/16/21 09:00 11/16/21 08:50 Enoxaparin 40 Mg/0.4 Ml Syringe SUB-Q 40 mg DAILY ZENON Administration Levofloxacin/Dextrose 750 mg in 150 mls @ 100 mls/hr 11/16/21 21:00 11/16/21 21:40 Levaquin 750 Mg/D5w 150 Ml IVPB 100 mls/hr Q24H ZENON Administration Ceftriaxone Sodium/Dextrose 1 gm in 50 mls @ 100 mls/hr 11/16/21
--- NOTE | 2021-11-17 09:51 | PM.PNNEP ---
Progress Note: A&P Additional Plan 1. The patient has hyponatremia. The patient has a pulmonary mass on her CT scan. 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 There are other considerations however. TSH and cortisol are okay. CT brain is okay. On no suspicious medications. The sodium remains low. Saline made her sodium level goal lower from about 118 to current levels. Fluid restriction alone does not seem to be bring it up. She is also on demeclocycline. This can take a few days to kick in. She has no central line and is not in the ICU so we cannot use 3% saline currently. I fear conivaptan because I do not think she is going to drink enough fluid to prevent her from over correcting. Will add salt tablets and low-dose furosemide to try to bring the sodium up. 2. 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 Dr. Victor has been consulted. 3. The patient has insomnia. She was given Ambien last night. 4. The patient is thin but this is pretty much how she is, she says. . 5. She is recovering from a sinus infection. She is getting antibiotics in case there might be an infectious component to her lung mass. Subjective Date/time seen: 11/17/21 09:51 Interval history: Patient feels about the same. Generally weak. Not eating very well. Not very thirsty. Patient NPO today. Review of Systems Cardiovascular: Cardiovascular: Reports no additional cardiovascular complaints Respiratory: Respiratory: Reports no additional respiratory complaints Gastrointestinal: Gastrointestinal: Reports no additional gastrointestinal complaints Genitourinary: Genitourinary: Reports no additional female genitourinary complaints Exam Narrative: WDWN in NAD skin no rash head ncat lungs clear cor reg no rub abd BS+ nontender and soft ext no edema. Objective Data Vital Signs Vital Signs: Vital Signs - 24 hr 11/16/21 12:00 11/16/21 14:00 11/16/21 16:00 Temperature 36.6 C Pulse Rate 93 98 101 H Respiratory Rate 18 Blood Pressure 148/62 H Pulse Oximetry 96 11/16/21 20:00 11/16/21 22:00 11/17/21 00:00 Temperature 36.8 C Pulse Rate 80 88 90 Respiratory Rate 18 Blood Pressure 130/59 L Pulse Oximetry 95 11/17/21 04:00 11/17/21 05:32 11/17/21 07:54 Temperature 36.6 C Pulse Rate 87 103 H Respiratory Rate 18 Blood Pressure 158/64 H Pulse Oximetry 96 96 Intake/Output Intake/Output: Intake & Output 11/14/21 11/15/21 11/16/21 11/17/21 23:59 23:59 23:59 23:59 Intake Total 50 1240 300 Output Total 100 2240 402 Balance -50 -1000 -102 Meds/Results Medications: Active Medications Generic Name Dose Route Start Last Admin Trade Name Freq PRN Reason Stop Dose Admin Acetaminophen 650 mg 11/16/21 17:06 11/17/21 05:28 Acetaminophen 325 Mg Tablet PO 650 mg Q6H PRN Administration Mild Pain (1-3) or Fever Demeclocycline HCl 150 mg 11/16/21 17:00 11/16/21 20:20 Demeclocycline Hcl 150 Mg Tablet PO 150 mg QID ZENON Administration Enoxaparin Sodium 40 mg 11/16/21 09:00 11/16/21 08:50 Enoxaparin 40 Mg/0.4 Ml Syringe SUB-Q 40 mg DAILY ZENON Administration Furosemide 20 mg 11/17/21 09:35 Furosemide 20 Mg Tablet PO Q8H ZENON Levofloxacin/Dextrose 750 mg in 150 mls @ 100 mls/hr 11/16/21 21:00 11/16/21 21:40 Levaquin 750 Mg/D5w 150 Ml IVPB 100 mls/hr Q24H ZENON Administration Ceftriaxone Sodium/Dextrose 1 gm in 50 mls @ 100 mls/hr 11/16/21 21:00 11/16/21 20:26 Rocephin 1 Gm/D5w 50 Ml IVPB Infused Q24H ZENON Infusion Ondansetron HCl 4 mg 11/17/21 07:27 11/17/21 08:14 Ondansetron Inj 4 Mg/2 Ml Vial IV PUSH 4 mg Q6H PRN Administration Nausea And Vomiting Sodium Chloride 1 gm 11/17/21 09:35 Sodium Chloride 1 Gm Tablet PO Q8HR ZENON Zolpidem Tartrate 5 mg 11/16/21 02:02 11/16/21 23:26 Zolpidem Tartrate (*Crx) 5 Mg Tablet PO 5 mg HS PRN Administration I
[2021-11-17 10:02] LABS: Sodium 113 mmol/L (137-145)
[2021-11-17] MEDS: FUROSEMIDE 20 MG TABLET PO ×2 (11:43→18:39)
[2021-11-17] MEDS: DEMECLOCYCLINE HCL 150 MG TABLET PO ×3 (11:43→20:36)
[2021-11-17] MEDS: LIDOCAINE HCL 1% PF INJ 5 ML VIAL INFILTRATE (13:15)
[2021-11-17] MEDS: SODIUM CHLORIDE 3% 150 ML 25 ML IV CONT ×2 (16:36→22:56)
[2021-11-17] MEDS: SODIUM CHLORIDE 1 GM TABLET PO ×2 (16:43→21:07)
[2021-11-17 17:17] LABS: Anion Gap 6 mmol/L (8-16); Blood Urea Nitrogen 7 mg/dL (7-17); Carbon Dioxide 30 mmol/L (22-30); Chloride 77 mmol/L (98-107); Estimated CRCL calculation 45 ml/min; Estimated Glomerular Filt Rate > 60; Glucose 86 mg/dL (65-110); Potassium 3.2 mmol/L (3.4-5.0); Sodium 113 mmol/L (137-145)
[2021-11-17] MEDS: CENTRAL LINE FLUSH 10 ML IV PUSH (21:06)
[2021-11-17 21:12] LABS: Sodium 115 mmol/L (137-145)
[2021-11-18] VITALS (9 sets, daily range): BP systolic 105–124; BP diastolic 48–53; PULSE 80–107; RESP 18–20; TEMP 36.5–36.9; O2SAT 91–97
[2021-11-18] MEDS: FUROSEMIDE 20 MG TABLET PO ×3 (01:10→16:26)
[2021-11-18] MEDS: ZOLPIDEM TARTRATE (*CRX) 5 MG TABLET PO (01:15)
[2021-11-18 04:09] LABS: Basophils Percent Auto 0.1 % (0.2-1.2); Eosinophils Percent Auto 0.1 % (0-4.4); Hemoglobin 9.6 g/dL (12.0-15.0); Immature Granulocyte Absolute 0.09 K/mm3 (0.00-0.031); Immature Granulocyte Percent A 0.7 % (0-0.5); Lymphocytes Absolute Auto 0.31 K/mm3 (0.9-3.2); Lymphocytes Percent Auto 2.3 % (18.3-44.2); Mean Corpuscular HGB Conc 34.3 g/dl (32-36); Mean Corpuscular Hemoglobin 29.3 pg (26-34); Mean Corpuscular Volume 85.4 fl (80-100); Mean Platelet Volume 8.2 fl (7.4-10.4); Monocytes Absolute Auto 0.9 K/mm3 (0.1-0.6); Monocytes Percent Auto 6.8 % (2.6-8.5); Neutrophils Absolute Auto 12.2 K/mm3 (1.3-6.7); Platelet Count Result 460 k/mm3 (150-375); Red Blood Count 3.28 M/mm3 (4.2-5.4); Red Cell Distribution Width 11.8 % (11.5-14.5); White Blood Count 13.6 K/mm3 (4.5-10.0)
[2021-11-18 04:43] LABS: Alanine Aminotransferase 12 U/L (4-35); Albumin Level 2.5 g/dL (3.5-5.1); Alkaline Phosphatase 79 U/L (38-126); Anion Gap 4 mmol/L (8-16); Aspartate Amino Transferase 31 U/L (14-36); Bilirubin,Total 0.3 mg/dL (0.2-1.3); Blood Urea Nitrogen 10 mg/dL (7-17); Calcium 7.5 mg/dL (8.4-10.2); Carbon Dioxide 31 mmol/L (22-30); Chloride 82 mmol/L (98-107); Estimated CRCL calculation 39 ml/min; Estimated Glomerular Filt Rate > 60; Glucose 94 mg/dL (65-110); Phosphorus 3.6 mg/dL (2.5-4.5); Sodium 117 mmol/L (137-145)
[2021-11-18] MEDS: SODIUM CHLORIDE 1 GM TABLET PO ×3 (05:26→21:03)
[2021-11-18] MEDS: CENTRAL LINE FLUSH 10 ML IV PUSH ×3 (05:26→21:04)
[2021-11-18] MEDS: POTASSIUM CHLORIDE 20 MEQ TABLET 40 MEQ PO ×3 (08:14→16:26)
[2021-11-18] MEDS: DEMECLOCYCLINE HCL 150 MG TABLET PO ×4 (08:15→21:03)
--- NOTE | 2021-11-18 10:05 | PM.IMPN ---
Progress Note: A&P Assessment and Plan (1) Acute hyponatremia: Code(s): E87.1 - Hypo-osmolality and hyponatremia Status: Acute Assessment and Plan: Probable acute and of chronic hyponatremia worsening today Monitor sodium level Free water restriction Salt tablet Diuresis daily evaluation Nephrology consult (2) Lung mass: Code(s): R91.8 - Other nonspecific abnormal finding of lung field Status: Acute Assessment and Plan: No h/o tobacco abuse. Given CT and CXR finding, pulm for evaluation for biopsy of lesion and LN Refused CT scan-guided lung biopsy on 11/17/2021 follow-up up as outpatient consider palliative care/hospice as outpatient (3) Community acquired pneumonia: Code(s): J18.9 - Pneumonia, unspecified organism Status: Acute Assessment and Plan: Continue Levaquin (4) Insomnia: Qualifiers: Insomnia type: unspecified Qualified Code(s): G47.00 - Insomnia, unspecified Code(s): G47.00 - Insomnia, unspecified Status: Acute Assessment and Plan: continue lunesta (5) Thrombocytosis: Code(s): D75.839 - Thrombocytosis, unspecified Status: Acute Assessment and Plan: potentially 2/2 underlying malginancy, continue to monitor (6) Anemia: Code(s): D64.9 - Anemia, unspecified Status: Acute Assessment and Plan: Probably anemia of chronic disease Follow iron studies, ferritin Subjective Date/time seen: 11/18/21 10:05 Interval history: 86 yo F PMHx of insomnia on lunesta. Presents from PCP with hyponatremia. Patient is slow to respond, but A&Ox3. She states she has not been feeling well and running low grade fevers for the past week. She though it was a sinus infection that was getting better. Patient went to her PCP's office today and was told she had a low sodium and was sent to the ED for further evaluation. At the ER chest x-ray shows lung mass CT scan of the chest shows possible metastatic lung disease concern for pneumonia also patient has hyponatremia Nephrology pulmonology was consulted patient was started on IV antibiotic CT scan of the abdomen showed liver cyst and kidney cysts discussed with pulmonology on 11/17/[address] scan-guided lung biopsy on 11/17/2021 patient to follow-up with pulmonology as outpatient hyponatremia improved with fluid restriction IV Lasix and salt tablet nephrology following Patient feels weak Patient denies fever headache chest pain I am seeing the patient for pneumonia Exam Narrative: Alert Chest decreased air entry bilateral Abdomen nontender nondistended CVS S1 + S2 Negative Lower extremity edema Objective Data Vital Signs Vital Signs: Vital Signs - 24 hr 11/17/21 12:00 11/17/21 14:00 11/17/21 16:00 Temperature 99 F Pulse Rate 92 81 106 H Respiratory Rate 14 Blood Pressure 134/52 L Pulse Oximetry 95 11/17/21 20:00 11/17/21 22:00 11/18/21 00:00 Temperature 97.1 F L Pulse Rate 88 97 80 Respiratory Rate 18 Blood Pressure 128/58 L Pulse Oximetry 94 11/18/21 04:00 11/18/21 06:00 Temperature 97.7 F Pulse Rate 80 84 Respiratory Rate 18 Blood Pressure 124/53 L Pulse Oximetry 97 Intake/Output Intake/Output: Intake & Output 11/15/21 11/16/21 11/17/21 11/18/21 23:59 23:59 23:59 23:59 Intake Total 50 1390 300 390 Output Total 100 2240 402 Balance -50 -850 -102 390 Meds/Results Medications: Active Medications Generic Name Dose Route Start Last Admin Trade Name Freq PRN Reason Stop Dose Admin Acetaminophen 650 mg 11/16/21 17:06 11/17/21 05:28 Acetaminophen 325 Mg Tablet PO 650 mg Q6H PRN Administration Mild Pain (1-3) or Fever Demeclocycline HCl 150 mg 11/16/21 17:00 11/18/21 08:15 Demeclocycline Hcl 150 Mg Tablet PO 150 mg QID ZENON Administration Enoxaparin Sodium 40 mg 11/16/21 09:00 11/16/21 08:50 Enoxaparin 40 Mg/0.4 Ml Syringe SUB-Q 40
[2021-11-18 12:17] LABS: Anion Gap 3 mmol/L (8-16); Blood Urea Nitrogen 13 mg/dL (7-17); Calcium 7.7 mg/dL (8.4-10.2); Carbon Dioxide 29 mmol/L (22-30); Chloride 86 mmol/L (98-107); Estimated CRCL calculation 39 ml/min; Estimated Glomerular Filt Rate > 60; Glucose 115 mg/dL (65-110); Potassium 3.5 mmol/L (3.4-5.0); Sodium 118 mmol/L (137-145)
--- NOTE | 2021-11-18 12:35 | PM.PNNEP ---
Progress Note: A&P Additional Plan 1. The patient has hyponatremia. The patient has a pulmonary mass on her CT scan. 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 There are other considerations however. TSH and cortisol are okay. CT brain is okay. On no suspicious medications. The sodium is mildly better. fluid restriction, furosemide, salt tabs and dmc on board but still low so she received hypertonic saline. she was written for 25cc/hour for 6 hours only. Somehow she got more than that. Sodium however brii to 117 this morning and is still the same now. Will check another sodium at 6:00 p.m. 2. 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 Dr. Victor has been consulted. 3. The patient has insomnia. She was given Ambien last night. 4. The patient is thin but this is pretty much how she is, she says. . 5. She is recovering from a sinus infection. She is getting antibiotics in case there might be an infectious component to her lung mass. Subjective Date/time seen: 11/18/21 12:35 Interval history: Patient feels better. snacking on some sweet potatoes. Strength is better Exam Narrative: WDWN in NAD skin no rash head ncat lungs clear cor reg no rub abd BS+ nontender and soft ext no edema. Objective Data Vital Signs Vital Signs: Vital Signs - 24 hr 11/17/21 14:00 11/17/21 16:00 11/17/21 20:00 Temperature 37.2 C Pulse Rate 81 106 H 88 Respiratory Rate 14 Blood Pressure 134/52 L Pulse Oximetry 95 11/17/21 22:00 11/18/21 00:00 11/18/21 04:00 Temperature 36.2 C L Pulse Rate 97 80 80 Respiratory Rate 18 Blood Pressure 128/58 L Pulse Oximetry 94 11/18/21 06:00 11/18/21 08:00 Temperature 36.5 C Pulse Rate 84 95 Respiratory Rate 18 Blood Pressure 124/53 L Pulse Oximetry 97 Intake/Output Intake/Output: Intake & Output 11/15/21 11/16/21 11/17/21 11/18/21 23:59 23:59 23:59 23:59 Intake Total 50 1390 300 440 Output Total 100 2240 402 Balance -50 -850 -102 440 Meds/Results Medications: Active Medications Generic Name Dose Route Start Last Admin Trade Name Freq PRN Reason Stop Dose Admin Acetaminophen 650 mg 11/16/21 17:06 11/17/21 05:28 Acetaminophen 325 Mg Tablet PO 650 mg Q6H PRN Administration Mild Pain (1-3) or Fever Demeclocycline HCl 150 mg 11/16/21 17:00 11/18/21 08:15 Demeclocycline Hcl 150 Mg Tablet PO 150 mg QID ZENON Administration Enoxaparin Sodium 40 mg 11/16/21 09:00 11/16/21 08:50 Enoxaparin 40 Mg/0.4 Ml Syringe SUB-Q 40 mg DAILY ZENON Administration Furosemide 20 mg 11/17/21 09:35 11/18/21 08:14 Furosemide 20 Mg Tablet PO 20 mg Q8H ZENON Administration Levofloxacin/Dextrose 750 mg in 150 mls @ 100 mls/hr 11/16/21 21:00 11/17/21 21:06 Levaquin 750 Mg/D5w 150 Ml IVPB 100 mls/hr Q24H ZENON Administration Ceftriaxone Sodium/Dextrose 1 gm in 50 mls @ 100 mls/hr 11/16/21 21:00 11/17/21 20:37 Rocephin 1 Gm/D5w 50 Ml IVPB 200 mls/hr Q24H ZENON Administration Ondansetron HCl 4 mg 11/17/21 07:27 11/17/21 08:14 Ondansetron Inj 4 Mg/2 Ml Vial IV PUSH 4 mg Q6H PRN Administration Nausea And Vomiting Potassium Chloride 40 meq 11/18/21 13:00 Potassium Chloride 20 Meq Tablet PO 11/18/21 17:01 Q4HR ZENON Sodium Chloride 1 gm 11/17/21 09:35 11/18/21 05:26 Sodium Chloride 1 Gm Tablet PO 1 gm Q8HR ZENON Administration Sodium Chloride 10 ml 11/17/21 22:00 11/18/21 05:26 Central Line Flush IV PUSH 10 ml Q8HR ZENON Administration Sodium Chloride 10 ml 11/17/21 15:45 Central Line Flush IV PUSH PRN PRN with TPN bag changes Sodium Chloride 20 ml 11/17/21 15:45 Central Line Flush IV PUSH PRN PRN after blood draws Zolpidem Tartrate 5 mg 11/16/21 02:02 11/18/21 01:15 Zolpidem Tartrate (*Crx) 5 Mg Tablet PO 5 mg HS PRN Administration Insomnia Radiology Results: ITS Im
[2021-11-18 16:05] LABS: Albumin 2.6 g/dL (3.8-4.8); Alpha 1 Globulin 0.6 g/dL (0.2-0.3); Alpha 2 Globulin 0.9 g/dL (0.5-0.9); Beta 1 Globulin 0.3 g/dL (0.4-0.6); Protein, Total 5.7 g/dL (6.1-8.1)
[2021-11-18 18:20] LABS: Sodium 122 mmol/L (137-145)
[2021-11-18 18:32] LABS: Anion Gap 2 mmol/L (8-16); Blood Urea Nitrogen 13 mg/dL (7-17); Calcium 8.1 mg/dL (8.4-10.2); Carbon Dioxide 30 mmol/L (22-30); Chloride 88 mmol/L (98-107); Estimated CRCL calculation 39 ml/min; Estimated Glomerular Filt Rate > 60; Glucose 185 mg/dL (65-110); Potassium 4.7 mmol/L (3.4-5.0); Sodium 120 mmol/L (137-145)
[2021-11-18 21:34] LABS: Sodium 121 mmol/L (137-145)
[2021-11-19] VITALS (9 sets, daily range): BP systolic 113–120; BP diastolic 44–55; PULSE 86–102; RESP 16–20; TEMP 36.3–36.6; O2SAT 92–96
[2021-11-19] MEDS: FUROSEMIDE 20 MG TABLET PO ×3 (00:21→17:15)
[2021-11-19] MEDS: CENTRAL LINE FLUSH 10 ML IV PUSH ×3 (05:25→21:07)
[2021-11-19] MEDS: SODIUM CHLORIDE 1 GM TABLET PO ×3 (05:26→21:07)
[2021-11-19 05:47] LABS: Basophils Percent Auto 0.2 % (0.2-1.2); Eosinophils Percent Auto 0.2 % (0-4.4); Hematocrit 30.4 % (37.0-47.0); Hemoglobin 9.9 g/dL (12.0-15.0); Immature Granulocyte Absolute 0.11 K/mm3 (0.00-0.031); Immature Granulocyte Percent A 0.8 % (0-0.5); Lymphocytes Absolute Auto 0.44 K/mm3 (0.9-3.2); Lymphocytes Percent Auto 3.4 % (18.3-44.2); Mean Corpuscular HGB Conc 32.6 g/dl (32-36); Mean Corpuscular Hemoglobin 28.3 pg (26-34); Mean Corpuscular Volume 86.9 fl (80-100); Mean Platelet Volume 8.3 fl (7.4-10.4); Monocytes Percent Auto 7.9 % (2.6-8.5); Neutrophils Absolute Auto 11.4 K/mm3 (1.3-6.7); Neutrophils Percent Auto 87.5 % (45.5-73.1); Platelet Count Result 444 k/mm3 (150-375)
[2021-11-19 05:58] LABS: Alanine Aminotransferase 16 U/L (4-35); Albumin Level 2.6 g/dL (3.5-5.1); Alkaline Phosphatase 91 U/L (38-126); Anion Gap 1 mmol/L (8-16); Aspartate Amino Transferase 38 U/L (14-36); Bilirubin,Total 0.2 mg/dL (0.2-1.3); Blood Urea Nitrogen 13 mg/dL (7-17); Calcium 7.8 mg/dL (8.4-10.2); Carbon Dioxide 31 mmol/L (22-30); Chloride 88 mmol/L (98-107); Estimated CRCL calculation 39 ml/min; Estimated Glomerular Filt Rate > 60; Glucose 110 mg/dL (65-110); Phosphorus 2.6 mg/dL (2.5-4.5); Potassium 4.4 mmol/L (3.4-5.0); Sodium 120 mmol/L (137-145)
[2021-11-19] MEDS: DEMECLOCYCLINE HCL 150 MG TABLET PO ×4 (08:47→21:07)
--- NOTE | 2021-11-19 08:58 | PM.IMPN ---
Progress Note: A&P Assessment and Plan (1) Acute hyponatremia: Code(s): E87.1 - Hypo-osmolality and hyponatremia Status: Acute Assessment and Plan: Probable acute and of chronic hyponatremia worsening today Monitor sodium level Free water restriction Salt tablet Diuresis daily evaluation Status post hypertonic saline Nephrology consult Improved Expect discharge on Monday (2) Lung mass: Code(s): R91.8 - Other nonspecific abnormal finding of lung field Status: Acute Assessment and Plan: No h/o tobacco abuse. Given CT and CXR finding, pulm for evaluation for biopsy of lesion and LN Refused CT scan-guided lung biopsy on 11/17/2021 follow-up up as outpatient consider palliative care/hospice as outpatient (3) Community acquired pneumonia: Code(s): J18.9 - Pneumonia, unspecified organism Status: Acute Assessment and Plan: Continue Levaquin (4) Insomnia: Qualifiers: Insomnia type: unspecified Qualified Code(s): G47.00 - Insomnia, unspecified Code(s): G47.00 - Insomnia, unspecified Status: Acute Assessment and Plan: continue lunesta (5) Thrombocytosis: Code(s): D75.839 - Thrombocytosis, unspecified Status: Acute Assessment and Plan: potentially 2/2 underlying malginancy, continue to monitor (6) Anemia: Code(s): D64.9 - Anemia, unspecified Status: Acute Assessment and Plan: Probably anemia of chronic disease Follow iron studies, ferritin Subjective Date/time seen: 11/19/21 08:58 Interval history: 86 yo F PMHx of insomnia on esta. Presents from PCP with hyponatremia. Patient is slow to respond, but A&Ox3. She states she has not been feeling well and running low grade fevers for the past week. She though it was a sinus infection that was getting better. Patient went to her PCP's office today and was told she had a low sodium and was sent to the ED for further evaluation. At the ER chest x-ray shows lung mass CT scan of the chest shows possible metastatic lung disease concern for pneumonia also patient has hyponatremia Nephrology pulmonology was consulted patient was started on IV antibiotic CT scan of the abdomen showed liver cyst and kidney cysts discussed with pulmonology on 11/17/[address] scan-guided lung biopsy on 11/17/2021 patient to follow-up with pulmonology as outpatient hyponatremia improved with fluid restriction IV Lasix hypertonic saline and salt tablet nephrology following Patient feels better today Patient denies fever headache chest pain I am seeing the patient for pneumonia Exam Narrative: Alert Chest decreased air entry bilateral Abdomen nontender nondistended CVS S1 + S2 Negative Lower extremity edema Objective Data Vital Signs Vital Signs: Vital Signs - 24 hr 11/18/21 12:00 11/18/21 14:00 11/18/21 16:00 Temperature 98.5 F Pulse Rate 95 93 107 H Respiratory Rate 20 Blood Pressure 105/48 L Pulse Oximetry 94 11/18/21 20:00 11/18/21 21:59 11/19/21 00:00 Temperature 98.1 F Pulse Rate 95 95 95 Respiratory Rate 18 Blood Pressure 109/49 L Pulse Oximetry 91 11/19/21 04:00 11/19/21 06:00 Temperature 97.9 F Pulse Rate 93 86 Respiratory Rate 18 Blood Pressure 113/55 L Pulse Oximetry 96 Intake/Output Intake/Output: Intake & Output 11/16/21 11/17/21 11/18/21 11/19/21 23:59 23:59 23:59 23:59 Intake Total 4899 124 1889 290 Output Total 2240 402 Balance -501 58 6981 290 Meds/Results Medications: Active Medications Generic Name Dose Route Start Last Admin Trade Name Freq PRN Reason Stop Dose Admin Acetaminophen 650 mg 11/16/21 17:06 11/17/21 05:28 Acetaminophen 325 Mg Tablet PO 650 mg Q6H PRN Administration Mild Pain (1-3) or Fever Demeclocycline HCl 150 mg 11/16/21 17:00 11/19/21 08:47 Demeclocycline Hcl 150 Mg Tablet PO 150 mg QID ZENON Administration Enoxaparin S
--- NOTE | 2021-11-19 10:12 | PM.PNNEP ---
Progress Note: A&P Additional Plan 1. The patient has hyponatremia. The patient has a pulmonary mass on her CT scan. 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 There are other considerations however. TSH and cortisol are okay. CT brain is okay. On no suspicious medications. The sodium is mildly better. fluid restriction, furosemide, salt tabs and dmc on board She required hypertonic saline the other night. Since then her sodium level has been stable. Will give another round of hypertonic saline today. 2. 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 Dr. Victor has been consulted. 3. The patient has insomnia. She was given Ambien last night. 4. The patient is thin but this is pretty much how she is, she says. . 5. She is recovering from a sinus infection. She is getting antibiotics in case there might be an infectious component to her lung mass. Subjective Date/time seen: 11/19/21 10:12 Interval history: Patient feels better. She did not sleep very well last night. She did not get her Ambien. Exam Narrative: WDWN in NAD skin no rash or subQ nodules head ncat lungs clear cor reg no rub or gallop abd BS+ nontender and soft ext no edema. Objective Data Vital Signs Vital Signs: Vital Signs - 24 hr 11/18/21 12:00 11/18/21 14:00 11/18/21 16:00 Temperature 36.9 C Pulse Rate 95 93 107 H Respiratory Rate 20 Blood Pressure 105/48 L Pulse Oximetry 94 11/18/21 20:00 11/18/21 21:59 11/19/21 00:00 Temperature 36.7 C Pulse Rate 95 95 95 Respiratory Rate 18 Blood Pressure 109/49 L Pulse Oximetry 91 11/19/21 04:00 11/19/21 06:00 Temperature 36.6 C Pulse Rate 93 86 Respiratory Rate 18 Blood Pressure 113/55 L Pulse Oximetry 96 Intake/Output Intake/Output: Intake & Output 11/16/21 11/17/21 11/18/21 11/19/21 23:59 23:59 23:59 23:59 Intake Total 6260 502 7300 290 Output Total 2240 402 Balance -870 20 0626 290 Meds/Results Medications: Active Medications Generic Name Dose Route Start Last Admin Trade Name Freq PRN Reason Stop Dose Admin Acetaminophen 650 mg 11/16/21 17:06 11/17/21 05:28 Acetaminophen 325 Mg Tablet PO 650 mg Q6H PRN Administration Mild Pain (1-3) or Fever Demeclocycline HCl 150 mg 11/16/21 17:00 11/19/21 08:47 Demeclocycline Hcl 150 Mg Tablet PO 150 mg QID ZENON Administration Enoxaparin Sodium 40 mg 11/16/21 09:00 11/16/21 08:50 Enoxaparin 40 Mg/0.4 Ml Syringe SUB-Q 40 mg DAILY ZENON Administration Furosemide 20 mg 11/17/21 09:35 11/19/21 08:47 Furosemide 20 Mg Tablet PO 20 mg Q8H ZENON Administration Levofloxacin/Dextrose 750 mg in 150 mls @ 100 mls/hr 11/20/21 21:00 Levaquin 750 Mg/D5w 150 Ml IVPB Q48H ZENON Ondansetron HCl 4 mg 11/17/21 07:27 11/17/21 08:14 Ondansetron Inj 4 Mg/2 Ml Vial IV PUSH 4 mg Q6H PRN Administration Nausea And Vomiting Sodium Chloride 1 gm 11/17/21 09:35 11/19/21 05:26 Sodium Chloride 1 Gm Tablet PO 1 gm Q8HR ZENON Administration Sodium Chloride 10 ml 11/17/21 22:00 11/19/21 05:25 Central Line Flush IV PUSH 10 ml Q8HR ZENON Administration Sodium Chloride 10 ml 11/17/21 15:45 Central Line Flush IV PUSH PRN PRN with TPN bag changes Sodium Chloride 20 ml 11/17/21 15:45 Central Line Flush IV PUSH PRN PRN after blood draws Zolpidem Tartrate 5 mg 11/16/21 02:02 11/18/21 01:15 Zolpidem Tartrate (*Crx) 5 Mg Tablet PO 5 mg HS PRN Administration Insomnia Radiology Results: ITS Impressions Chest CT 11/15/21 19:33 IMPRESSION: Pulmonary findings felt to most likely represent 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 Superimposed infection/infarction could have a similar appearance to the consolidated areas in the right posterior upper lung and bilateral medial lower lungs, and should be considered in the differential. Head
[2021-11-19] MEDS: SODIUM CHLORIDE 3% 150 ML 25 ML IV CONT (13:28)
[2021-11-19 17:25] LABS: Anion Gap 4 mmol/L (8-16); Blood Urea Nitrogen 15 mg/dL (7-17); Calcium 7.4 mg/dL (8.4-10.2); Carbon Dioxide 29 mmol/L (22-30); Chloride 92 mmol/L (98-107); Estimated CRCL calculation 45 ml/min; Estimated Glomerular Filt Rate > 60; Glucose 102 mg/dL (65-110); Potassium 3.8 mmol/L (3.4-5.0); Sodium 125 mmol/L (137-145)
[2021-11-19] MEDS: ZOLPIDEM TARTRATE (*CRX) 5 MG TABLET PO (22:32)
[2021-11-20] VITALS (11 sets, daily range): BP systolic 106–132; BP diastolic 50–52; PULSE 87–107; RESP 16; TEMP 37.1–37.9; O2SAT 91–93
[2021-11-20 00:51] LABS: Legionella pneumophila Ag Ur Not Detected (Not Detected)
[2021-11-20] MEDS: FUROSEMIDE 20 MG TABLET PO ×3 (01:05→22:01)
[2021-11-20] MEDS: CENTRAL LINE FLUSH 10 ML IV PUSH ×2 (05:36→12:19)
[2021-11-20] MEDS: SODIUM CHLORIDE 1 GM TABLET PO ×3 (05:36→22:00)
[2021-11-20 05:59] LABS: Albumin Level 2.8 g/dL (3.5-5.1); Anion Gap 4 mmol/L (8-16); Blood Urea Nitrogen 14 mg/dL (7-17); Calcium 8.1 mg/dL (8.4-10.2); Carbon Dioxide 31 mmol/L (22-30); Chloride 88 mmol/L (98-107); Estimated CRCL calculation 39 ml/min; Estimated Glomerular Filt Rate > 60; Glucose 118 mg/dL (65-110); Phosphorus 3.9 mg/dL (2.5-4.5); Potassium 3.7 mmol/L (3.4-5.0); Sodium 123 mmol/L (137-145)
[2021-11-20] MEDS: DEMECLOCYCLINE HCL 150 MG TABLET PO ×4 (08:28→22:01)
--- NOTE | 2021-11-20 09:29 | PM.IMPN ---
Progress Note: A&P Assessment and Plan (1) Acute hyponatremia: Code(s): E87.1 - Hypo-osmolality and hyponatremia Status: Acute Assessment and Plan: Probable acute and of chronic hyponatremia worsening today Monitor sodium level Free water restriction Salt tablet Diuresis daily evaluation Status post hypertonic saline Nephrology consult Improved Hypernatremia worsening today Expect probable discharge on Monday if blood sodium is 130 or above (2) Lung mass: Code(s): R91.8 - Other nonspecific abnormal finding of lung field Status: Acute Assessment and Plan: No h/o tobacco abuse. Given CT and CXR finding, pulm for evaluation for biopsy of lesion and LN Refused CT scan-guided lung biopsy on 11/17/2021 follow-up up as outpatient consider palliative care/hospice as outpatient (3) Community acquired pneumonia: Code(s): J18.9 - Pneumonia, unspecified organism Status: Acute Assessment and Plan: Continue Levaquin Patient has leukocytosis repeat CBC in a.m. (4) Insomnia: Qualifiers: Insomnia type: unspecified Qualified Code(s): G47.00 - Insomnia, unspecified Code(s): G47.00 - Insomnia, unspecified Status: Acute Assessment and Plan: continue lunesta (5) Thrombocytosis: Code(s): D75.839 - Thrombocytosis, unspecified Status: Acute Assessment and Plan: potentially 2/2 underlying malginancy, continue to monitor (6) Anemia: Code(s): D64.9 - Anemia, unspecified Status: Acute Assessment and Plan: Probably anemia of chronic disease Follow iron studies, ferritin monitor CBC Subjective Date/time seen: 11/20/21 09:29 Interval history: 86 yo F PMHx of insomnia on est. Presents from PCP with hyponatremia. Patient is slow to respond, but A&Ox3. She states she has not been feeling well and running low grade fevers for the past week. She though it was a sinus infection that was getting better. Patient went to her PCP's office today and was told she had a low sodium and was sent to the ED for further evaluation. At the ER chest x-ray shows lung mass CT scan of the chest shows possible metastatic lung disease concern for pneumonia also patient has hyponatremia Nephrology pulmonology was consulted patient was started on IV antibiotic CT scan of the abdomen showed liver cyst and kidney cysts discussed with pulmonology on 11/17/[address] scan-guided lung biopsy on 11/17/2021 patient to follow-up with pulmonology as outpatient hyponatremia improved with fluid restriction IV Lasix hypertonic saline and salt tablet nephrology following Patient feels better today but hyponatremia worsening today Patient slept well overnight Patient denies fever headache chest pain I am seeing the patient for pneumonia Exam Narrative: Alert Chest decreased air entry bilateral Abdomen nontender nondistended CVS S1 + S2 Negative Lower extremity edema Objective Data Vital Signs Vital Signs: Vital Signs - 24 hr 11/19/21 12:00 11/19/21 14:00 11/19/21 16:00 Temperature 97.3 F L Pulse Rate 102 H 98 98 Respiratory Rate 20 Blood Pressure 120/47 L Pulse Oximetry 94 11/19/21 20:00 11/19/21 21:52 11/20/21 00:00 Temperature 97.4 F L Pulse Rate 97 91 100 Respiratory Rate 16 Blood Pressure 116/44 L Pulse Oximetry 92 11/20/21 04:00 11/20/21 06:00 Temperature 99.0 F Pulse Rate 87 103 H Respiratory Rate 16 Blood Pressure 122/52 L Pulse Oximetry 91 Intake/Output Intake/Output: Intake & Output 11/17/21 11/18/21 11/19/21 11/20/21 23:59 23:59 23:59 23:59 Intake Total 500 1140 290 513 Output Total 402 Balance 98 1140 290 513 Meds/Results Medications: Active Medications Generic Name Dose Route Start Last Admin Trade Name Freq PRN Reason Stop Dose Admin Acetaminophen 650 mg 11/16/21 17:06 11/17/21 05:28 Acetaminophen 325 Mg Tablet PO 650 mg Q6H PRN A
[2021-11-20 10:45] LABS: Sodium 126 mmol/L (137-145)
--- NOTE | 2021-11-20 12:44 | PM.PNNEP ---
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 Subjective Date/time seen: 11/20/21 12:44 Chart reviewed - assuming care from Dr. Dupont; patient seems to be doing reasonably well on my visit; improvement in sodium noted by recent testing (she did receive 3% saline yesterday) but her sodium has been somewhat resistant to current therapeutic interventions; no apparent distress voiced other that she is thirsty. Exam Narrative: General: elderly female in NAD Heart: normal S1 and S2; no rub Lungs: clear to auscultation Abdomen: soft, nontender, nondistended, positive bowel sounds Extremities: no cyanosis or clubbing; no edema Skin: warm and dry Objective Data Vital Signs Vital Signs: Vital Signs Temp Pulse Resp BP Pulse Ox 11/20/21 08:25 98 11/20/21 06:00 37.2 C 103 H 16 122/52 L 91 11/20/21 04:00 87 11/20/21 00:00 100 11/19/21 21:52 36.3 C L 91 16 116/44 L 92 11/19/21 20:00 97 11/19/21 16:00 98 11/19/21 14:00 36.3 C L 98 20 120/47 L 94 Intake/Output Intake/Output: Intake & Output 11/17/21 11/18/21 11/19/21 11/20/21 23:59 23:59 23:59 23:59 Intake Total 500 1140 290 513 Output Total 402 Balance 98 1140 290 513 Meds/Results Medications: Active Medications Generic Name Dose Route Start Last Admin Trade Name Freq PRN Reason Stop Dose Admin Acetaminophen 650 mg 11/16/21 17:06 11/17/21 05:28 Acetaminophen 325 Mg Tablet PO 650 mg Q6H PRN Administration Mild Pain (1-3) or Fever Demeclocycline HCl 150 mg 11/16/21 17:00 11/20/21 12:19 Demeclocycline Hcl 150 Mg Tablet PO 150 mg QID ZENON Administration Enoxaparin Sodium 40 mg 11/16/21 09:00 11/16/21 08:50 Enoxaparin 40 Mg/0.4 Ml Syringe SUB-Q 40 mg DAILY ZENON Administration Furosemide 20 mg 11/17/21 09:35 11/20/21 08:28 Furosemide 20 Mg Tablet PO 20 mg Q8H ZENON Administration Levofloxacin/Dextrose 750 mg in 150 mls @ 100 mls/hr 11/20/21 21:00 Levaquin 750 Mg/D5w 150 Ml IVPB Q48H ZENON Ondansetron HCl 4 mg 11/17/21 07:27 11/17/21 08:14 Ondansetron Inj 4 Mg/2 Ml Vial IV PUSH 4 mg Q6H PRN Administration Nausea And Vomiting Sodium Chloride 1 gm 11/17/21 09:35 11/20/21 12:19 Sodium Chloride 1 Gm Tablet PO 1 gm Q8HR ZENON Administration Sodium Chloride 10 ml 11/17/21 22:00 11/20/21 12:19 Central Line Flush IV PUSH 10 ml Q8HR ZENON Administration Sodium Chloride 10 ml 11/17/21 15:45 Central Line Flush IV PUSH PRN PRN with TPN bag changes Sodium Chloride 20 ml 11/17/21 15:45 Central Line Flush IV PUSH PRN PRN after blood draws Zolpidem Tartrate 5 mg 11/16/21 02:02 11/19/21 22:32 Zolpidem Tartrate (*Crx) 5 Mg Tablet PO 5 mg HS PRN Administration Insomnia Radiology Results: ITS Impressions Chest CT 11/15/21 19:33 IMPRESSION: Pulmonary findings felt to most likely represent 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 Superimposed infection/infarction could have a similar appearance to the consolidated areas in the right posterior upper lung and bilateral medial lower lungs, and should be considered in the differential. Head CT 11/16/21 09:26 IMPRESSION: 1. Moderate nonspecific cerebral white matter disease, which likely r
--- NOTE | 2021-11-20 13:45 | PC.NURSE ---
While I was passing noon meds, pt's daughters asked about an update on pt. I answered their questions specifically regarding discharge and pt's lung condition. During the course of the conversation, pt confirmed that she has changed her mind about going to rehab and is now willing to do so. Shortly after I left the room, 2 of pt's daughters came to the nurses' station to inform me that pt has now changed her mind about getting the lung biopsy as well. I contacted Dr. Patino and Dr. Victor regarding this. Dr. Patino agreed to schedule the biopsy this coming week. I have also reached out to care coordination to inform them of the changes.
[2021-11-20 15:38] LABS: Sodium 131 mmol/L (137-145)
[2021-11-20 19:49] LABS: Sodium 126 mmol/L (137-145)
[2021-11-20] MEDS: ACETAMINOPHEN 325 MG TABLET 650 MG PO (22:00)
[2021-11-20 23:33] LABS: Sodium 123 mmol/L (137-145)
[2021-11-20] MEDS: ZOLPIDEM TARTRATE (*CRX) 5 MG TABLET PO (23:46)
[2021-11-21] VITALS (9 sets, daily range): BP systolic 128–145; BP diastolic 50–61; PULSE 62–117; RESP 16–20; TEMP 36.5–37.1; O2SAT 91–93
[2021-11-21 06:41] LABS: Albumin Level 2.7 g/dL (3.5-5.1); Anion Gap 1 mmol/L (8-16); Blood Urea Nitrogen 15 mg/dL (7-17); Calcium 7.8 mg/dL (8.4-10.2); Carbon Dioxide 35 mmol/L (22-30); Chloride 88 mmol/L (98-107); Estimated CRCL calculation 45 ml/min; Estimated Glomerular Filt Rate > 60; Glucose 117 mg/dL (65-110); Phosphorus 4.3 mg/dL (2.5-4.5); Potassium 3.4 mmol/L (3.4-5.0); Sodium 124 mmol/L (137-145)
[2021-11-21] MEDS: FUROSEMIDE 20 MG TABLET PO ×3 (09:12→21:04)
[2021-11-21] MEDS: DEMECLOCYCLINE HCL 150 MG TABLET PO ×4 (09:13→21:04)
[2021-11-21] MEDS: SODIUM CHLORIDE 1 GM TABLET PO ×3 (09:13→21:04)
[2021-11-21 09:38] LABS: Sodium 125 mmol/L (137-145)
--- NOTE | 2021-11-21 09:46 | PM.IMPN ---
Progress Note: A&P Assessment and Plan (1) Acute hyponatremia: Code(s): E87.1 - Hypo-osmolality and hyponatremia Status: Acute Assessment and Plan: Probable acute and of chronic hyponatremia worsening today Monitor sodium level Free water restriction Salt tablet Diuresis daily evaluation Status post hypertonic saline Nephrology consult Improved Monitor sodium level Expect probable discharge on Monday if blood sodium is 130 or above to rehab (2) Lung mass: Code(s): R91.8 - Other nonspecific abnormal finding of lung field Status: Acute Assessment and Plan: No h/o tobacco abuse. Given CT and CXR finding, pulm for evaluation for biopsy of lesion and LN CT scan-guided lung biopsy on 11/22/2021 (3) Community acquired pneumonia: Code(s): J18.9 - Pneumonia, unspecified organism Status: Acute Assessment and Plan: Continue Levaquin Follow CBC (4) Insomnia: Qualifiers: Insomnia type: unspecified Qualified Code(s): G47.00 - Insomnia, unspecified Code(s): G47.00 - Insomnia, unspecified Status: Acute Assessment and Plan: continue lunesta (5) Thrombocytosis: Code(s): D75.839 - Thrombocytosis, unspecified Status: Acute Assessment and Plan: potentially 2/2 underlying malginancy, continue to monitor (6) Anemia: Code(s): D64.9 - Anemia, unspecified Status: Acute Assessment and Plan: Probably anemia of chronic disease Follow iron studies, ferritin monitor CBC Subjective Date/time seen: 11/21/21 09:46 Interval history: 86 yo F PMHx of insomnia on . Presents from PCP with hyponatremia. Patient is slow to respond, but A&Ox3. She states she has not been feeling well and running low grade fevers for the past week. She though it was a sinus infection that was getting better. Patient went to her PCP's office today and was told she had a low sodium and was sent to the ED for further evaluation. At the ER chest x-ray shows lung mass CT scan of the chest shows possible metastatic lung disease concern for pneumonia also patient has hyponatremia Nephrology pulmonology was consulted patient was started on IV antibiotic CT scan of the abdomen showed liver cyst and kidney cysts discussed with pulmonology on 11/21/[address] scan-guided lung biopsy hyponatremia improved with fluid restriction IV Lasix hypertonic saline and salt tablet nephrology following Patient feels better today Still complaining of left lower extremity numbness Patient has generalized weakness specially in lower extremities denies back pain urine or stool incontinence Patient slept well overnight Patient denies fever headache chest pain I am seeing the patient for pneumonia Exam Narrative: Alert Chest decreased air entry bilateral Abdomen nontender nondistended CVS S1 + S2 Negative Lower extremity edema Objective Data Vital Signs Vital Signs: Vital Signs - 24 hr 11/20/21 12:00 11/20/21 14:00 11/20/21 16:00 Temperature 98.7 F Pulse Rate 107 H 106 H 90 Respiratory Rate 16 Blood Pressure 106/51 L Pulse Oximetry 93 11/20/21 20:00 11/20/21 21:34 11/20/21 22:00 Temperature 100.3 F H 100.3 F H Pulse Rate 100 103 H Respiratory Rate 16 Blood Pressure 132/50 L Pulse Oximetry 93 11/20/21 23:00 11/21/21 00:00 11/21/21 04:00 Temperature 98.7 F Pulse Rate 98 83 Respiratory Rate Blood Pressure Pulse Oximetry 11/21/21 06:00 Temperature 97.7 F Pulse Rate 99 Respiratory Rate 16 Blood Pressure 132/50 L Pulse Oximetry 92 Intake/Output Intake/Output: Intake & Output 11/18/21 11/19/21 11/20/21 11/21/21 23:59 23:59 23:59 23:59 Intake Total 1140 440 936 500 Balance 1140 440 936 500 Meds/Results Medications: Active Medications Generic Name Dose Route Start Last Admin Trade Name Freq PRN Reason Stop Dose Admin Acetaminophen 650 mg 11/16/21 17:06
[2021-11-21 10:17] LABS: Basophils Percent Auto 0.2 % (0.2-1.2); Eosinophils Percent Auto 0.2 % (0-4.4); Hematocrit 31.4 % (37.0-47.0); Hemoglobin 10.4 g/dL (12.0-15.0); Immature Granulocyte Absolute 0.16 K/mm3 (0.00-0.031); Immature Granulocyte Percent A 0.9 % (0-0.5); Lymphocytes Absolute Auto 0.31 K/mm3 (0.9-3.2); Lymphocytes Percent Auto 1.8 % (18.3-44.2); Mean Corpuscular HGB Conc 33.1 g/dl (32-36); Mean Corpuscular Hemoglobin 28.4 pg (26-34); Mean Corpuscular Volume 85.8 fl (80-100); Mean Platelet Volume 8.2 fl (7.4-10.4); Monocytes Absolute Auto 0.9 K/mm3 (0.1-0.6); Neutrophils Absolute Auto 15.5 K/mm3 (1.3-6.7); Neutrophils Percent Auto 91.9 % (45.5-73.1); Platelet Count Result 445 k/mm3 (150-375); Red Blood Count 3.66 M/mm3 (4.2-5.4); Red Cell Distribution Width 12.6 % (11.5-14.5); White Blood Count 16.9 K/mm3 (4.5-10.0)
--- NOTE | 2021-11-21 12:18 | PM.PNNEP ---
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 Subjective Date/time seen: 11/21/21 12:18 Sodium levels continue to fluctuate although there was a concern for overcorrection when her sodium brii to 131 but subsequent testing demonstrated her sodium to be about the same; still complaining of being thirsty but no other apparent issues/events overnight or earlier this AM. Exam Narrative: General: elderly female in NAD Heart: normal S1 and S2; no rub Lungs: clear to auscultation Abdomen: soft, nontender, nondistended, positive bowel sounds Extremities: no cyanosis or clubbing; no edema Skin: warm and dry Objective Data Vital Signs Vital Signs: Vital Signs Temp Pulse Resp BP Pulse Ox 11/21/21 12:00 102 H 11/21/21 09:10 96 11/21/21 06:00 36.5 C 99 16 132/50 L 92 11/21/21 04:00 83 11/21/21 00:00 98 11/20/21 23:00 37.1 C 11/20/21 22:00 37.9 C H 11/20/21 21:34 37.9 C H 103 H 16 132/50 L 93 11/20/21 20:00 100 11/20/21 16:00 90 11/20/21 14:00 37.1 C 106 H 16 106/51 L 93 Intake/Output Intake/Output: Intake & Output 11/18/21 11/19/21 11/20/21 11/21/21 23:59 23:59 23:59 23:59 Intake Total 1140 440 936 620 Balance 1140 440 936 620 Meds/Results Medications: Active Medications Generic Name Dose Route Start Last Admin Trade Name Freq PRN Reason Stop Dose Admin Acetaminophen 650 mg 11/16/21 17:06 11/20/21 22:00 Acetaminophen 325 Mg Tablet PO 650 mg Q6H PRN Administration Mild Pain (1-3) or Fever Demeclocycline HCl 150 mg 11/20/21 21:00 11/21/21 12:33 Demeclocycline Hcl 150 Mg Tablet PO 150 mg QID ZENON Administration Enoxaparin Sodium 40 mg 11/16/21 09:00 11/16/21 08:50 Enoxaparin 40 Mg/0.4 Ml Syringe SUB-Q 40 mg DAILY ZENON Administration Furosemide 20 mg 11/21/21 07:10 11/21/21 12:33 Furosemide 20 Mg Tablet PO 20 mg Q8HR ZENON Administration Levofloxacin/Dextrose 750 mg in 150 mls @ 100 mls/hr 11/20/21 21:00 11/20/21 23:34 Levaquin 750 Mg/D5w 150 Ml IVPB Infused Q48H ZENON Infusion Ondansetron HCl 4 mg 11/17/21 07:27 11/17/21 08:14 Ondansetron Inj 4 Mg/2 Ml Vial IV PUSH 4 mg Q6H PRN Administration Nausea And Vomiting Sodium Chloride 20 ml 11/17/21 15:45 Central Line Flush IV PUSH PRN PRN after blood draws Sodium Chloride 1 gm 11/21/21 07:10 11/21/21 12:33 Sodium Chloride 1 Gm Tablet PO 1 gm Q8HR ZENON Administration Zolpidem Tartrate 5 mg 11/16/21 02:02 11/20/21 23:46 Zolpidem Tartrate (*Crx) 5 Mg Tablet PO 5 mg HS PRN Administration Insomnia Radiology Results: ITS Impressions Chest CT 11/15/21 19:33 IMPRESSION: Pulmonary findings felt to most likely represent 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 Superimposed infection/infarction could have a similar appearance to the consolidated areas in the right posterior upper lung and bilateral medial lower lungs, and should be considered in the differential. Head CT 11/16/21 09:26 IMPRESSION: 1. Moderate nonspecific cerebral white matter disease, which likely represents chronic small vessel ischemic disease. Abdomen/Pelvis CT 11/16/21 09:30 IMPRESSION: 1. No acute findings of the abdome
[2021-11-21 12:32] LABS: Sodium 125 mmol/L (137-145)
[2021-11-21 18:12] LABS: Sodium 125 mmol/L (137-145)
[2021-11-21] MEDS: SODIUM CHLORIDE 3% 150 ML 50 ML IV CONT (19:25)
[2021-11-21] MEDS: ZOLPIDEM TARTRATE (*CRX) 5 MG TABLET PO (21:04)
[2021-11-21 23:26] LABS: Sodium 128 mmol/L (137-145)
[2021-11-22] VITALS (10 sets, daily range): BP systolic 106–128; BP diastolic 53–62; PULSE 60–117; RESP 16–18; TEMP 36.1–37.3; O2SAT 90–96
[2021-11-22] MEDS: FUROSEMIDE 20 MG TABLET PO ×3 (05:08→23:22)
[2021-11-22] MEDS: SODIUM CHLORIDE 1 GM TABLET PO ×3 (05:08→23:22)
[2021-11-22 06:00] LABS: Basophils Percent Auto 0.2 % (0.2-1.2); Eosinophils Percent Auto 0.1 % (0-4.4); Hematocrit 28.8 % (37.0-47.0); Hemoglobin 9.3 g/dL (12.0-15.0); Immature Granulocyte Absolute 0.12 K/mm3 (0.00-0.031); Immature Granulocyte Percent A 0.9 % (0-0.5); Lymphocytes Absolute Auto 0.45 K/mm3 (0.9-3.2); Lymphocytes Percent Auto 3.5 % (18.3-44.2); Mean Corpuscular HGB Conc 32.3 g/dl (32-36); Mean Corpuscular Hemoglobin 28.4 pg (26-34); Mean Corpuscular Volume 87.8 fl (80-100); Mean Platelet Volume 8.3 fl (7.4-10.4); Monocytes Absolute Auto 1.1 K/mm3 (0.1-0.6); Monocytes Percent Auto 8.5 % (2.6-8.5); Neutrophils Absolute Auto 11.1 K/mm3 (1.3-6.7); Neutrophils Percent Auto 86.8 % (45.5-73.1); Platelet Count Result 384 k/mm3 (150-375); Red Blood Count 3.28 M/mm3 (4.2-5.4); Red Cell Distribution Width 12.8 % (11.5-14.5); White Blood Count 12.8 K/mm3 (4.5-10.0)
[2021-11-22 06:13] LABS: Albumin Level 2.6 g/dL (3.5-5.1); Anion Gap 3 mmol/L (8-16); Blood Urea Nitrogen 17 mg/dL (7-17); Calcium 8.1 mg/dL (8.4-10.2); Carbon Dioxide 37 mmol/L (22-30); Chloride 87 mmol/L (98-107); Estimated CRCL calculation 39 ml/min; Estimated Glomerular Filt Rate > 60; Glucose 118 mg/dL (65-110); Phosphorus 4.7 mg/dL (2.5-4.5); Sodium 127 mmol/L (137-145)
--- NOTE | 2021-11-22 08:59 | PM.IMPN ---
Progress Note: A&P Assessment and Plan (1) Acute hyponatremia: Code(s): E87.1 - Hypo-osmolality and hyponatremia Status: Acute Assessment and Plan: Probable acute and of chronic hyponatremia worsening today Monitor sodium level Free water restriction Salt tablet Diuresis daily evaluation Status post hypertonic saline Nephrology consult Improved Monitor sodium level Most likely discharge on Monday to rehab (2) Lung mass: Code(s): R91.8 - Other nonspecific abnormal finding of lung field Status: Acute Assessment and Plan: No h/o tobacco abuse. Given CT and CXR finding, pulm for evaluation for biopsy of lesion and LN CT scan-guided lung biopsy on 11/22/2021 (3) Community acquired pneumonia: Code(s): J18.9 - Pneumonia, unspecified organism Status: Acute Assessment and Plan: Continue Levaquin Leukocytosis improved (4) Insomnia: Qualifiers: Insomnia type: unspecified Qualified Code(s): G47.00 - Insomnia, unspecified Code(s): G47.00 - Insomnia, unspecified Status: Acute Assessment and Plan: continue lunesta (5) Thrombocytosis: Code(s): D75.839 - Thrombocytosis, unspecified Status: Acute Assessment and Plan: potentially 2/2 underlying malginancy, continue to monitor (6) Anemia: Code(s): D64.9 - Anemia, unspecified Status: Acute Assessment and Plan: Probably anemia of chronic disease iron studies, ferritin monitor CBC (7) Numbness of left foot: Code(s): R20.8 - Other disturbances of skin sensation Status: Acute Assessment and Plan: Probably peripheral neuropathy will get MRI of the lumbar spine patient has intermittent back pain and has lung mass concern for malignancy with metastasis Subjective Date/time seen: 11/22/21 08:59 Interval history: 86 yo F PMHx of insomnia on . Presents from PCP with hyponatremia. Patient is slow to respond, but A&Ox3. She states she has not been feeling well and running low grade fevers for the past week. She though it was a sinus infection that was getting better. Patient went to her PCP's office today and was told she had a low sodium and was sent to the ED for further evaluation. At the ER chest x-ray shows lung mass CT scan of the chest shows possible metastatic lung disease concern for pneumonia also patient has hyponatremia Nephrology pulmonology was consulted patient was started on IV antibiotic CT scan of the abdomen showed liver cyst and kidney cysts discussed with pulmonology on 11/21/[address] scan-guided lung biopsy hyponatremia improved with fluid restriction IV Lasix hypertonic saline and salt tablet nephrology following Patient feels better today Complain of numbness on the plantar surface of the left leg Hyponatremia improved Patient feels better today Patient is interested in rehab Patient slept well overnight Patient denies fever headache chest pain I am seeing the patient for pneumonia Exam Narrative: Alert Chest decreased air entry bilateral Abdomen nontender nondistended CVS S1 + S2 Negative Lower extremity edema Objective Data Vital Signs Vital Signs: Vital Signs - 24 hr 11/21/21 09:10 11/21/21 12:00 11/21/21 14:00 Temperature 98.7 F Pulse Rate 96 102 H 62 Respiratory Rate 20 Blood Pressure 145/61 H Pulse Oximetry 93 11/21/21 16:00 11/21/21 20:00 11/21/21 22:00 Temperature 98.5 F Pulse Rate 98 110 H 117 H Respiratory Rate 18 Blood Pressure 128/53 L Pulse Oximetry 91 11/22/21 00:00 11/22/21 01:26 11/22/21 04:00 Temperature Pulse Rate 60 72 Respiratory Rate Blood Pressure Pulse Oximetry 93 11/22/21 06:00 Temperature 97.0 F L Pulse Rate 95 Respiratory Rate 18 Blood Pressure 106/53 L Pulse Oximetry 96 Intake/Output Intake/Output: Intake & Output 11/19/21 11/20/21 11/21/21 11/22/21 23:59 23:59 23:59 23:
[2021-11-22 09:30] LABS: Magnesium 1.7 mg/dL (1.6-2.3)
[2021-11-22] MEDS: POTASSIUM CHLORIDE INJ 40 MEQ in SODIUM CHLORIDE 0.9% IV 500 ML 130 MEQ IVPB (10:02)
--- NOTE | 2021-11-22 10:31 | PCOTNOTE ---
Attempted to see patient this am, however patient declined stating, I'm too tired.
--- NOTE | 2021-11-22 12:50 | PCOTNOTE ---
Attempted to see patient, however second attempt, patient was off floor for testing/procedure. Third attempt, patient was unavailable with RN.
--- NOTE | 2021-11-22 13:06 | PM.PNNEP ---
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 follow trend of repeat sodium (2) Lung mass: Code(s): R91.8 - Other nonspecific abnormal finding of lung field Status: Acute Assessment and Plan: high index of suspicion for malignancy will need biopsy for definitive diagnosis - tentatively scheduled for today Will continue to follow. Subjective Date/time seen: 11/22/21 13:06 Overall, seems to be feeling reasonably well today; no other acute issues or problems to report at this time; aware that she is scheduled for biopsy of lung mass later today; sodium relatively stable if not improved in the last 24 hours. Exam Narrative: General: elderly female in NAD Heart: normal S1 and S2; no rub Lungs: decreased at the bases Abdomen: soft, nontender, nondistended, positive bowel sounds Extremities: no cyanosis or clubbing; no edema Skin: warm and dry Objective Data Vital Signs Vital Signs: Vital Signs Temp Pulse Resp BP Pulse Ox 11/22/21 06:00 36.1 C L 95 18 106/53 L 96 11/22/21 04:00 72 11/22/21 01:26 93 11/22/21 00:00 60 11/21/21 22:00 36.9 C 117 H 18 128/53 L 91 11/21/21 20:00 110 H Intake/Output Intake/Output: Intake & Output 11/19/21 11/20/21 11/21/21 11/22/21 23:59 23:59 23:59 23:59 Intake Total 440 936 860 150 Output Total 1 Balance 440 936 860 149 Meds/Results Medications: Active Medications Generic Name Dose Route Start Last Admin Trade Name Freq PRN Reason Stop Dose Admin Acetaminophen 650 mg 11/16/21 17:06 11/20/21 22:00 Acetaminophen 325 Mg Tablet PO 650 mg Q6H PRN Administration Mild Pain (1-3) or Fever Alteplase, Recombinant 2 mg 11/22/21 13:07 11/22/21 13:59 Alteplase 2 Mg Vial (Cathflo) IV PUSH 2 mg ONCE PRN Administration Line Occlusion Alteplase, Recombinant 2 mg 11/22/21 13:07 11/22/21 13:59 Alteplase 2 Mg Vial (Cathflo) IV PUSH 2 mg ONCE PRN Administration Line Occlusion Demeclocycline HCl 150 mg 11/20/21 21:00 11/22/21 09:43 Demeclocycline Hcl 150 Mg Tablet PO Not Given QID ZENON Enoxaparin Sodium 40 mg 11/16/21 09:00 11/16/21 08:50 Enoxaparin 40 Mg/0.4 Ml Syringe SUB-Q 40 mg DAILY ZENON Administration Furosemide 20 mg 11/21/21 07:10 11/22/21 05:08 Furosemide 20 Mg Tablet PO 20 mg Q8HR ZENON Administration Levofloxacin/Dextrose 750 mg in 150 mls @ 100 mls/hr 11/20/21 21:00 11/22/21 07:29 Levaquin 750 Mg/D5w 150 Ml IVPB Infused Q48H ZENON Infusion Ondansetron HCl 4 mg 11/17/21 07:27 11/17/21 08:14 Ondansetron Inj 4 Mg/2 Ml Vial IV PUSH 4 mg Q6H PRN Administration Nausea And Vomiting Sodium Chloride 20 ml 11/17/21 15:45 Central Line Flush IV PUSH PRN PRN after blood draws Sodium Chloride 1 gm 11/21/21 07:10 11/22/21 05:08 Sodium Chloride 1 Gm Tablet PO 1 gm Q8HR ZENON Administration Zolpidem Tartrate 5 mg 11/16/21 02:02 11/21/21 21:04 Zolpidem Tartrate (*Crx) 5 Mg Tablet PO 5 mg HS PRN Administration Insomnia Radiology Results: ITS Impressions Chest CT 11/15/21 19:33 IMPRESSION: Pulmonary findings felt to most likely represent 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 Superimposed infection/infarction could have a similar appearance to the consolidated areas in the right posterior upper lung and bilateral medial lower lungs, and should be considered in the different
[2021-11-22 13:35] LABS: Sodium 127 mmol/L (137-145)
[2021-11-22] MEDS: ALTEPLASE 2 MG VIAL (CATHFLO) IV PUSH ×2 (13:59)
--- NOTE | 2021-11-22 16:50 | PCPTNOTE ---
The patient treatment was not able to be completed today due to patient out of room for testing and biopsy. Will plan to continue treatment per plan of care.
[2021-11-22] MEDS: MAGNESIUM SULF 2 GM/WATER 50ML 2 GM/50 ML BAG IVPB (19:41)
[2021-11-22] MEDS: DEMECLOCYCLINE HCL 150 MG TABLET PO ×2 (19:42)
[2021-11-22] MEDS: ZOLPIDEM TARTRATE (*CRX) 5 MG TABLET PO (23:22)
[2021-11-23] MEDS: FUROSEMIDE 20 MG TABLET PO ×2 (05:33→13:04)
[2021-11-23] MEDS: SODIUM CHLORIDE 1 GM TABLET PO ×3 (05:33→21:00)
[2021-11-23 05:46] LABS: Basophils Percent Auto 0.2 % (0.2-1.2); Eosinophils Percent Auto 0.1 % (0-4.4); Hematocrit 30.9 % (37.0-47.0); Hemoglobin 9.9 g/dL (12.0-15.0); Immature Granulocyte Absolute 0.12 K/mm3 (0.00-0.031); Immature Granulocyte Percent A 0.8 % (0-0.5); Lymphocytes Absolute Auto 0.36 K/mm3 (0.9-3.2); Lymphocytes Percent Auto 2.3 % (18.3-44.2); Mean Corpuscular Hemoglobin 28.5 pg (26-34); Mean Platelet Volume 8.1 fl (7.4-10.4); Monocytes Absolute Auto 1.4 K/mm3 (0.1-0.6); Monocytes Percent Auto 8.8 % (2.6-8.5); Neutrophils Absolute Auto 13.8 K/mm3 (1.3-6.7); Neutrophils Percent Auto 87.8 % (45.5-73.1); Platelet Count Result 408 k/mm3 (150-375); Red Blood Count 3.47 M/mm3 (4.2-5.4); Red Cell Distribution Width 13.1 % (11.5-14.5); White Blood Count 15.7 K/mm3 (4.5-10.0)
[2021-11-23 05:48] VITALS: BP 124/61; PULSE 103; RESP 18; TEMP 36.1; O2SAT 99
[2021-11-23 05:58] LABS: Albumin Level 2.9 g/dL (3.5-5.1); Anion Gap 6 mmol/L (8-16); Blood Urea Nitrogen 21 mg/dL (7-17); Calcium 8.5 mg/dL (8.4-10.2); Carbon Dioxide 37 mmol/L (22-30); Chloride 88 mmol/L (98-107); Estimated CRCL calculation 34 ml/min; Estimated Glomerular Filt Rate > 60; Glucose 132 mg/dL (65-110); Magnesium 2.1 mg/dL (1.6-2.3); Phosphorus 4.9 mg/dL (2.5-4.5); Potassium 3.1 mmol/L (3.4-5.0); Sodium 131 mmol/L (137-145)
[2021-11-23] MEDS: DEMECLOCYCLINE HCL 150 MG TABLET PO ×4 (08:29→21:00)
[2021-11-23] MEDS: POTASSIUM CHLORIDE 20 MEQ TABLET 40 MEQ PO (08:29)
--- NOTE | 2021-11-23 10:46 | PM.PNNEP ---
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 replete K+ as needed follow trend of repeat sodium (2) Lung mass: Code(s): R91.8 - Other nonspecific abnormal finding of lung field Status: Acute Assessment and Plan: high index of suspicion for malignancy s/p biopsy for definitive diagnosis - pathology pending Will continue to follow. Subjective Date/time seen: 11/23/21 10:46 Slow improvement in sodium level noted in the last 24 hours; s/p lung biopsy yesterday and tolerated the procedure reasonably well; no other acute issues or complaints voiced at this tme. Exam Narrative: General: elderly female in NAD Heart: normal S1 and S2; no rub Lungs: decreased at the bases Abdomen: soft, nontender, nondistended, positive bowel sounds Extremities: no cyanosis or clubbing; no edema Skin: warm and intact Objective Data Vital Signs Vital Signs: Vital Signs Temp Pulse Resp BP Pulse Ox 11/23/21 05:48 36.1 C L 103 H 18 124/61 99 11/22/21 22:00 36.3 C L 103 H 18 124/62 96 11/22/21 19:50 92 11/22/21 19:46 92 11/22/21 17:47 95 11/22/21 15:46 117 H 18 128/53 L 91 11/22/21 14:00 37.3 C 109 H 16 116/56 L 90 Intake/Output Intake/Output: Intake & Output 11/20/21 11/21/21 11/22/21 11/23/21 23:59 23:59 23:59 23:59 Intake Total 936 860 600 320 Output Total 1 Balance 936 860 599 320 Meds/Results Medications: Active Medications Generic Name Dose Route Start Last Admin Trade Name Freq PRN Reason Stop Dose Admin Acetaminophen 650 mg 11/16/21 17:06 11/20/21 22:00 Acetaminophen 325 Mg Tablet PO 650 mg Q6H PRN Administration Mild Pain (1-3) or Fever Alteplase, Recombinant 2 mg 11/22/21 13:07 11/22/21 13:59 Alteplase 2 Mg Vial (Cathflo) IV PUSH 2 mg ONCE PRN Administration Line Occlusion Alteplase, Recombinant 2 mg 11/22/21 13:07 11/22/21 13:59 Alteplase 2 Mg Vial (Cathflo) IV PUSH 2 mg ONCE PRN Administration Line Occlusion Demeclocycline HCl 150 mg 11/20/21 21:00 11/23/21 08:29 Demeclocycline Hcl 150 Mg Tablet PO 150 mg QID ZENON Administration Enoxaparin Sodium 40 mg 11/16/21 09:00 11/16/21 08:50 Enoxaparin 40 Mg/0.4 Ml Syringe SUB-Q 40 mg DAILY ZENON Administration Furosemide 20 mg 11/21/21 07:10 11/23/21 05:33 Furosemide 20 Mg Tablet PO 20 mg Q8HR ZENON Administration Levofloxacin/Dextrose 750 mg in 150 mls @ 100 mls/hr 11/20/21 21:00 11/22/21 07:29 Levaquin 750 Mg/D5w 150 Ml IVPB Infused Q48H ZENON Infusion Ondansetron HCl 4 mg 11/17/21 07:27 11/17/21 08:14 Ondansetron Inj 4 Mg/2 Ml Vial IV PUSH 4 mg Q6H PRN Administration Nausea And Vomiting Sodium Chloride 20 ml 11/17/21 15:45 Central Line Flush IV PUSH PRN PRN after blood draws Sodium Chloride 1 gm 11/21/21 07:10 11/23/21 05:33 Sodium Chloride 1 Gm Tablet PO 1 gm Q8HR ZENON Administration Zolpidem Tartrate 5 mg 11/16/21 02:02 11/22/21 23:22 Zolpidem Tartrate (*Crx) 5 Mg Tablet PO 5 mg HS PRN Administration Insomnia Radiology Results: ITS Impressions Chest CT 11/15/21 19:33 IMPRESSION: Pulmonary findings felt to most likely represent 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 Superimposed infection/infarction could have a similar appearance to the consolidated areas in the right posterior upper lung and bilateral medial lower lungs, and shou
[2021-11-23 14:00] VITALS: BP 105/52; PULSE 89; RESP 14; TEMP 37.2; O2SAT 94
--- NOTE | 2021-11-23 15:42 | PM.IMPN ---
Progress Note: A&P Assessment and Plan (1) Acute hyponatremia: Code(s): E87.1 - Hypo-osmolality and hyponatremia Status: Acute Assessment and Plan: Probable acute and of chronic hyponatremia worsening today Monitor sodium level Free water restriction Salt tablet Diuresis daily evaluation Status post hypertonic saline Nephrology consult Improved Monitor sodium level Most likely discharge on Monday to rehab 11/23/2021 interval history: 86-year-old female presented with hyponatremia, had been treated hypertonic saline, salt tabs as well treated with fluid restriction patient's sodium has improved today is 131 compared to 118 upon arrival, will increase her restricted free fluid from 800 cc to 1200 cc today will continue to monitor, 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 (2) Lung mass: Code(s): R91.8 - Other nonspecific abnormal finding of lung field Status: Acute Assessment and Plan: No h/o tobacco abuse. Given CT and CXR finding, pulm for evaluation for biopsy of lesion and LN CT scan-guided lung biopsy on 11/22/2021 (3) Community acquired pneumonia: Code(s): J18.9 - Pneumonia, unspecified organism Status: Acute Assessment and Plan: Continue Levaquin Leukocytosis improved (4) Insomnia: Qualifiers: Insomnia type: unspecified Qualified Code(s): G47.00 - Insomnia, unspecified Code(s): G47.00 - Insomnia, unspecified Status: Acute Assessment and Plan: continue lunesta (5) Thrombocytosis: Code(s): D75.839 - Thrombocytosis, unspecified Status: Acute Assessment and Plan: potentially 2/2 underlying malginancy, continue to monitor (6) Anemia: Code(s): D64.9 - Anemia, unspecified Status: Acute Assessment and Plan: Probably anemia of chronic disease iron studies, ferritin monitor CBC (7) Numbness of left foot: Code(s): R20.8 - Other disturbances of skin sensation Status: Acute Assessment and Plan: Probably peripheral neuropathy will get MRI of the lumbar spine patient has intermittent back pain and has lung mass concern for malignancy with metastasis Subjective Date/time seen: 11/23/21 15:42 11/23/2021 interval history: 86-year-old female presented with hyponatremia, had been treated hypertonic saline, salt tabs as well treated with fluid restriction patient's sodium has improved today is 131 compared to 118 upon arrival, will increase her restricted free fluid from 800 cc to 1200 cc today will continue to monitor, 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 Review of Systems Review of Systems: All systems reviewed & are unremarkable except as noted in HPI and below Exam Narrative: elderly frail Patient is comfortable, NAD HEENT: eyes are clear and none icteric LUNGS: normal respiratory effort HEART: RR S1S2 ABD: not distended Lower extremities: no edema SKIN: nonjaundiced Neuro: grossly intact. Objective Data Vital Signs Vital Signs: Vital Signs - 24 hr 11/22/21 15:46 11/22/21 17:47 11/22/21 19:46 Temperature Pulse Rate 117 H Respiratory Rate 18 Blood Pressure 128/53 L Pulse Oximetry 91 95 92 11/22/21 19:50 11/22/21 22:00 11/23/21 05:48 Temperature 97.3 F L 97.0 F L Pulse Rate 103 H 103 H Respiratory Rate 18 18 Blood Pressure 124/62 124/61 Pulse Oximetry 92 96 99 11/23/21 14:00 Temperature 98.9 F Pulse Rate 89 Respiratory Rate 14 Blood Pressure 105/52 L Pulse Oximetry 94 Intake/Output Intake/Output: Intake & Output 11/20/21 11/21/21
--- NOTE | 2021-11-23 15:55 | PC.NURSE ---
Contacted Dr. Marina (hydroblaster) per Dr. Camilo request to consult on this patient for pneumonia as well as lung mass. Dr. Marina is going to follow up and consult.
[2021-11-23 18:00] VITALS: TEMP 38.3
[2021-11-23] MEDS: ACETAMINOPHEN 325 MG TABLET 650 MG PO (18:00)
[2021-11-23 19:00] VITALS: TEMP 36.7
[2021-11-23 20:45] VITALS: O2SAT 92
[2021-11-23 21:41] VITALS: BP 103/50; PULSE 93; RESP 16; TEMP 36.7; O2SAT 92
--- NOTE | 2021-11-23 22:57 | PC.NURSE ---
Spoke with Rosa Maria SHANKAR regarding patients blood pressure and scheduled HS lasix. Rosa Maria SHANKAR gave okay to hold lasix.
[2021-11-23] MEDS: ZOLPIDEM TARTRATE (*CRX) 5 MG TABLET PO (23:37)
[2021-11-24 05:55] VITALS: BP 118/51; PULSE 98; RESP 18; TEMP 37.6; O2SAT 90
[2021-11-24 06:13] VITALS: TEMP 37.6
[2021-11-24] MEDS: SODIUM CHLORIDE 1 GM TABLET PO ×3 (06:13→21:06)
[2021-11-24] MEDS: ACETAMINOPHEN 325 MG TABLET 650 MG PO ×2 (06:13→14:12)
[2021-11-24 06:24] LABS: Basophils Percent Auto 0.2 % (0.2-1.2); Eosinophils Percent Auto 0.2 % (0-4.4); Hematocrit 31.5 % (37.0-47.0); Immature Granulocyte Absolute 0.13 K/mm3 (0.00-0.031); Immature Granulocyte Percent A 0.8 % (0-0.5); Lymphocytes Absolute Auto 0.43 K/mm3 (0.9-3.2); Lymphocytes Percent Auto 2.7 % (18.3-44.2); Mean Corpuscular HGB Conc 31.7 g/dl (32-36); Mean Corpuscular Hemoglobin 28.2 pg (26-34); Mean Corpuscular Volume 88.7 fl (80-100); Mean Platelet Volume 8.2 fl (7.4-10.4); Monocytes Absolute Auto 1.2 K/mm3 (0.1-0.6); Monocytes Percent Auto 7.4 % (2.6-8.5); Neutrophils Absolute Auto 14.2 K/mm3 (1.3-6.7); Neutrophils Percent Auto 88.7 % (45.5-73.1); Platelet Count Result 439 k/mm3 (150-375); Red Blood Count 3.55 M/mm3 (4.2-5.4)
[2021-11-24 06:34] LABS: Albumin Level 2.8 g/dL (3.5-5.1); Anion Gap 4 mmol/L (8-16); Blood Urea Nitrogen 30 mg/dL (7-17); Carbon Dioxide 37 mmol/L (22-30); Chloride 88 mmol/L (98-107); Estimated CRCL calculation 39 ml/min; Estimated Glomerular Filt Rate > 60; Glucose 117 mg/dL (65-110); Magnesium 1.9 mg/dL (1.6-2.3); Phosphorus 4.2 mg/dL (2.5-4.5); Potassium 3.1 mmol/L (3.4-5.0); Sodium 129 mmol/L (137-145)
[2021-11-24] MEDS: POTASSIUM CHLORIDE 20 MEQ PACKET (FOR LIQUID) 40 MEQ PO (08:21)
[2021-11-24] MEDS: DEMECLOCYCLINE HCL 150 MG TABLET PO ×4 (08:21→21:06)
--- NOTE | 2021-11-24 09:27 | PM.PNPUL ---
Progress Note: A&P Assessment and Plan (1) Lung mass: Code(s): R91.8 - Other nonspecific abnormal finding of lung field Status: Acute (2) Community acquired pneumonia: Code(s): J18.9 - Pneumonia, unspecified organism Status: Acute Assessment and Plan: 86-year-old female with multiple lung nodules most likely related to metastatic malignancy presented with hyponatremia, leukocytosis and low-grade fever. In addition to multiple lung nodules she has had a right upper lobe posterior segment consolidation for which she has been treated with antibiotics for possible community-acquired pneumonia. The patient continues to have leukocytosis despite treatment with ceftriaxone and currently with Levaquin. She has undergone right lower lobe lung nodule biopsy under CT guidance, with the pathology report pending. Patient has mild cough and no sputum production. She remains on room air. Upon questioning she admitted having some cough with meals but no choking on food. unclear whether this consolidation is related to anaerobic aspiration pneumonia. will screen patient for MRSA, extent antibiotic coverage by adding Zosyn IV to cover anaerobes and other gram negatives. Test urine for pneumococcal and Legionella antigen. patient has a history of penicillin allergy, unknown per chart. Upon questioning she stated that she may have had a skin rash related to penicillin many years ago. She did not have anaphylaxis related to penicillin allergy. Subjective Date/time seen: 11/24/21 09:27 This patient was admitted to the hospital with hyponatremia approximately 9 days ago. Chest radiographic studies showed multiple lung nodules bilaterally as well as consultation in the posterior segment of the right upper lobe. Because of low-grade fever and leukocytosis the patient has been treated for community-acquired pneumonia. She has received cephalosporin and Levaquin. Currently she just on Levaquin. she continues to have low-grade fever leukocytosis and the last chest x-ray taken 2 days ago showed unchanged right upper lobe consolidation. Patient underwent CT-guided biopsy of the right lower lobe nodule by Interventional Radiology. Pathology report pending. Review of Systems Review of Systems: All systems reviewed & are unremarkable except as noted in HPI and below Exam Narrative: GENERAL APPEARANCE: Well developed, well nourished, alert and cooperative, and appears to be in no acute distress While on room air SKIN: Inspection of the skin reveals no rashes, ulcerations or petechiae. HEENT: Sclerae anicteric and conjunctivae pink and moist. Extraocular movements were intact and pupils were equal, round, and reactive to light. The oral mucosa, hard and soft palate, tongue and posterior pharynx were normal. NECK: Supple. There was no thyroid enlargement, and no tenderness, or masses were felt. LUNGS: Auscultation of the lungs revealed normal breath sounds without any other adventitious sounds or rubs. CARDIAC: There was a regular rate and rhythm without any murmurs. ABDOMEN: Soft and nontender with normal bowel sounds. There was no organomegaly. LYMPH NODES: No lymphadenopathy was appreciated in the neck. EXTREMITIES: No cyanosis, clubbing or edema. NEUROLOGIC: Alert and oriented x 3. Normal affect. Objective Data Vital Signs Vital Signs: Vital Signs - 24 hr 11/23/21 14:00 11/23/21 18:00 11/23/21 19:00 Temperature 37.2 C 38.3 C H 36.7 C Pulse Rate 89 Respiratory Rate 14 Blood Pressure 105/52 L Pulse Oximetry 94 11/23/21 20:45 11/23/21 21:41 11/24/21 05:55 Temperature 36.7 C 37.6 C H Pulse Rate 93 98 Respiratory Rate 16 18 Blood Pressure 103/50 L 118/51 L Pulse Oximetry 92 92 90 11/24/21 06:13 Temperature 37.6 C H Pulse Rate Respiratory Rate Blood Pressure Pulse Oximetry Intake/Output Intake/Output: Intake & Output 11/21/21 11/22/21 11/23/21 11/24/21 23:59 23:59 23:59 23:5
--- NOTE | 2021-11-24 10:24 | PC.NURSE ---
Hold Lasix [address] Lynne orders due to decreased blood pressure readings.
[2021-11-24 11:08] LABS: CRP 23.3 mg/dL (<1.0)
--- NOTE | 2021-11-24 12:53 | PM.PNNEP ---
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 replete K+ as needed follow trend of repeat sodium (2) Pneumonia: Code(s): J18.9 - Pneumonia, unspecified organism Status: Acute Assessment and Plan: initially presumed to be community acquired however, now concerns for possible aspiration antibiotics adjusted today by Pulmonary (3) Lung mass: Code(s): R91.8 - Other nonspecific abnormal finding of lung field Status: Acute Assessment and Plan: high index of suspicion for malignancy s/p biopsy for definitive diagnosis - pathology pending Not much else to add at this time; will continue to follow intermittently while hospitalized. Subjective Date/time seen: 11/24/21 12:53 No apparent distress voiced at this time; antibiotic adjusted due to the concerns of aspiration pneumonia in association with persistent leukocytosis and low grade fevers; sodium remains relatively stable at this time; no other issues;events overnight. Exam Narrative: General: elderly female in NAD Heart: normal S1 and S2; no rub Lungs: decreased at the bases Abdomen: soft, nontender, nondistended, positive bowel sounds Extremities: no cyanosis or clubbing; no edema Skin: no rash Objective Data Vital Signs Vital Signs: Vital Signs Temp Pulse Resp BP Pulse Ox 11/24/21 06:13 37.6 C H 11/24/21 05:55 37.6 C H 98 18 118/51 L 90 11/23/21 21:41 36.7 C 93 16 103/50 L 92 11/23/21 20:45 92 11/23/21 19:00 36.7 C 11/23/21 18:00 38.3 C H Intake/Output Intake/Output: Intake & Output 11/21/21 11/22/21 11/23/21 11/24/21 23:59 23:59 23:59 23:59 Intake Total 860 600 920 626 Output Total 1 Balance 860 599 920 626 Meds/Results Medications: Active Medications Generic Name Dose Route Start Last Admin Trade Name Freq PRN Reason Stop Dose Admin Acetaminophen 650 mg 11/16/21 17:06 11/24/21 14:12 Acetaminophen 325 Mg Tablet PO 650 mg Q6H PRN Administration Mild Pain (1-3) or Fever Alteplase, Recombinant 2 mg 11/22/21 13:07 11/22/21 13:59 Alteplase 2 Mg Vial (Cathflo) IV PUSH 2 mg ONCE PRN Administration Line Occlusion Alteplase, Recombinant 2 mg 11/22/21 13:07 11/22/21 13:59 Alteplase 2 Mg Vial (Cathflo) IV PUSH 2 mg ONCE PRN Administration Line Occlusion Demeclocycline HCl 150 mg 11/20/21 21:00 11/24/21 16:05 Demeclocycline Hcl 150 Mg Tablet PO 150 mg QID ZENON Administration Enoxaparin Sodium 40 mg 11/16/21 09:00 11/16/21 08:50 Enoxaparin 40 Mg/0.4 Ml Syringe SUB-Q 40 mg DAILY ZENON Administration Furosemide 20 mg 11/21/21 07:10 11/24/21 14:08 Furosemide 20 Mg Tablet PO Not Given Q8HR ZENON Levofloxacin/Dextrose 750 mg in 150 mls @ 100 mls/hr 11/20/21 21:00 11/22/21 07:29 Levaquin 750 Mg/D5w 150 Ml IVPB Infused Q48H ZENON Infusion Piperacillin Sod/Tazobactam Sod 2.25 gm in 50 mls @ 100 mls/hr 11/24/21 10:00 11/24/21 16:05 Zosyn 2.25 Gm/D5w 50 Ml IVPB 100 mls/hr Q6H ZENON Administration Ondansetron HCl 4 mg 11/17/21 07:27 11/17/21 08:14 Ondansetron Inj 4 Mg/2 Ml Vial IV PUSH 4 mg Q6H PRN Administration Nausea And Vomiting Sodium Chloride 20 ml 11/17/21 15:45 Central Line Flush IV PUSH PRN PRN after blood draws Sodium Chloride 1 gm 11/21/21 07:10 11/24/21 14:10 Sodium Chloride 1 Gm Tablet PO 1 gm Q8HR ZENON
--- NOTE | 2021-11-24 13:52 | PCNWS ---
Weekly nutritional screen. Patient is tolerating a regular diet with adequate intake at 50-75% most meals. No weight loss reported. No nutritional needs at this time.
[2021-11-24 14:00] VITALS: BP 111/53; PULSE 105; RESP 16; TEMP 36.7; O2SAT 94
--- NOTE | 2021-11-24 15:05 | PM.IMPN ---
Progress Note: A&P Assessment and Plan (1) Acute hyponatremia: Code(s): E87.1 - Hypo-osmolality and hyponatremia Status: Acute Assessment and Plan: Probable acute and of chronic hyponatremia worsening today Monitor sodium level Free water restriction Salt tablet Diuresis daily evaluation Status post hypertonic saline Nephrology consult Improved Monitor sodium level Most likely discharge on Monday to rehab 11/23/2021 interval history: 86-year-old female presented with hyponatremia, had been treated hypertonic saline, salt tabs as well treated with fluid restriction patient's sodium has improved today is 131 compared to 118 upon arrival, will increase her restricted free fluid from 800 cc to 1200 cc today will continue to monitor, 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 (2) Lung mass: Code(s): R91.8 - Other nonspecific abnormal finding of lung field Status: Acute Assessment and Plan: No h/o tobacco abuse. Given CT and CXR finding, pulm for evaluation for biopsy of lesion and LN CT scan-guided lung biopsy on 11/22/2021 (3) Community acquired pneumonia: Code(s): J18.9 - Pneumonia, unspecified organism Status: Acute Assessment and Plan: Continue Levaquin Leukocytosis improved (4) Insomnia: Qualifiers: Insomnia type: unspecified Qualified Code(s): G47.00 - Insomnia, unspecified Code(s): G47.00 - Insomnia, unspecified Status: Acute Assessment and Plan: continue lunesta (5) Thrombocytosis: Code(s): D75.839 - Thrombocytosis, unspecified Status: Acute Assessment and Plan: potentially 2/2 underlying malginancy, continue to monitor (6) Anemia: Code(s): D64.9 - Anemia, unspecified Status: Acute Assessment and Plan: Probably anemia of chronic disease iron studies, ferritin monitor CBC (7) Numbness of left foot: Code(s): R20.8 - Other disturbances of skin sensation Status: Acute Assessment and Plan: Probably peripheral neuropathy will get MRI of the lumbar spine patient has intermittent back pain and has lung mass concern for malignancy with metastasis Subjective Date/time seen: 11/24/21 15:05 11/23/2021 interval history: 86-year-old female presented with hyponatremia, had been treated hypertonic saline, salt tabs as well treated with fluid restriction patient's sodium has improved today is 131 compared to 118 upon arrival, will increase her restricted free fluid from 800 cc to 1200 cc today will continue to monitor, 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
--- NOTE | 2021-11-24 16:33 | PCSTNOTE ---
Please refer to the Bedside Swallow Evaluation in the EMR. Please note, silent aspiration cannot be ruled out at bedside.
[2021-11-24 18:18] LABS: Rheumatoid Factor 33.3 IU/ML (<12)
[2021-11-24] MEDS: ZOLPIDEM TARTRATE (*CRX) 5 MG TABLET PO (21:06)
[2021-11-24] MEDS: FUROSEMIDE 20 MG TABLET PO (21:06)
[2021-11-24 22:00] VITALS: BP 146/72; PULSE 104; RESP 18; TEMP 37.3; O2SAT 92
[2021-11-25] MEDS: SODIUM CHLORIDE 1 GM TABLET PO ×4 (05:55→20:44)
[2021-11-25] MEDS: FUROSEMIDE 20 MG TABLET PO ×3 (05:55→20:44)
[2021-11-25 06:00] VITALS: BP 115/64; PULSE 99; RESP 18; TEMP 36.6; O2SAT 94
[2021-11-25 06:24] LABS: Albumin Level 2.8 g/dL (3.5-5.1); Anion Gap 5 mmol/L (8-16); Blood Urea Nitrogen 26 mg/dL (7-17); Calcium 8.9 mg/dL (8.4-10.2); Carbon Dioxide 35 mmol/L (22-30); Chloride 88 mmol/L (98-107); Estimated CRCL calculation 31 ml/min; Estimated Glomerular Filt Rate 60; Glucose 108 mg/dL (65-110); Magnesium 1.8 mg/dL (1.6-2.3); Phosphorus 5.1 mg/dL (2.5-4.5); Potassium 3.3 mmol/L (3.4-5.0); Sodium 128 mmol/L (137-145)
--- NOTE | 2021-11-25 09:24 | PM.PNPUL ---
Progress Note: A&P Assessment and Plan (1) Lung mass: Code(s): R91.8 - Other nonspecific abnormal finding of lung field Status: Acute (2) Community acquired pneumonia: Code(s): J18.9 - Pneumonia, unspecified organism Status: Acute Assessment and Plan: 86-year-old female with multiple lung nodules presented with hyponatremia, leukocytosis and low-grade fever. In addition to multiple lung nodules she has had a right upper lobe posterior segment consolidation for which she has been treated with antibiotics for possible community-acquired pneumonia. Right lung nodule biopsy showed no evidence of malignancy. There was evidence of chronic inflammation with some fibrosis and rare multinucleated giant cells. Stains for AFB and fungi negative. The patient continues to have leukocytosis, Elevated CRP. Respiratory status however has been stable and patient remaining on room air. in view of biopsy report the multiple lung nodules could be due to rheumatoid arthritis most likely rather than [place]'s granulomatosis. Workup for underlying autoimmune disease in progress. Etiology of right upper lobe consolidation not quite clear. It could represent community-acquired pneumonia, partially treated. Of note the patient had received antibiotics on an outpatient basis prior to coming to the hospital. will consider other possibilities if patient continues to have leukocytosis despite treatment with broad-spectrum antibiotics. Plan is as follows. Continue with current antibiotic regimen. Repeat chest x-ray in a.m.. Repeat PT INR as prolonged INR on admission not quite clear. Subjective Date/time seen: 11/25/21 09:24 Patient has no new respiratory symptoms. She remains on room air. video swallow study negative for aspiration pneumonia. Review of Systems Review of Systems: All systems reviewed & are unremarkable except as noted in HPI and below Exam Narrative: GENERAL APPEARANCE: Well developed, well nourished, alert and cooperative, and appears to be in no acute distress While on room air SKIN: Inspection of the skin reveals no rashes, ulcerations or petechiae. HEENT: Sclerae anicteric and conjunctivae pink and moist. Extraocular movements were intact and pupils were equal, round, and reactive to light. The oral mucosa, hard and soft palate, tongue and posterior pharynx were normal. NECK: Supple. There was no thyroid enlargement, and no tenderness, or masses were felt. LUNGS: Auscultation of the lungs revealed normal breath sounds without any other adventitious sounds or rubs. CARDIAC: There was a regular rate and rhythm without any murmurs. ABDOMEN: Soft and nontender with normal bowel sounds. There was no organomegaly. LYMPH NODES: No lymphadenopathy was appreciated in the neck. EXTREMITIES: No cyanosis, clubbing or edema. NEUROLOGIC: Alert and oriented x 3. Normal affect. Objective Data Vital Signs Vital Signs: Vital Signs - 24 hr 11/24/21 14:00 11/24/21 22:00 11/25/21 06:00 Temperature 36.7 C 37.3 C 36.6 C Pulse Rate 105 H 104 H 99 Respiratory Rate 16 18 18 Blood Pressure 111/53 L 146/72 H 115/64 Pulse Oximetry 94 92 94 Intake/Output Intake/Output: Intake & Output 11/22/21 11/23/21 11/24/21 11/25/21 23:59 23:59 23:59 23:59 Intake Total 600 920 846 240 Output Total 1 1 Balance 599 920 846 239 Meds/Results Medications: Active Medications Generic Name Dose Route Start Last Admin Trade Name Freq PRN Reason Stop Dose Admin Acetaminophen 650 mg 11/16/21 17:06 11/24/21 14:12 Acetaminophen 325 Mg Tablet PO 650 mg Q6H PRN Administration Mild Pain (1-3) or Fever Alteplase, Recombinant 2 mg 11/22/21 13:07 11/22/21 13:59 Alteplase 2 Mg Vial (Cathflo) IV PUSH 2 mg ONCE PRN Administration Line Occlusion Alteplase, Recombinant 2 mg 11/22/21 13:07 11/22/21 13:59 Alteplase 2 Mg Vial (Cathflo) IV PUSH 2 mg ONCE PRN Administration Line Occlus
[2021-11-25] MEDS: DEMECLOCYCLINE HCL 150 MG TABLET PO ×4 (09:54→20:44)
[2021-11-25 09:55] VITALS: RESP 18; O2SAT 94
[2021-11-25] MEDS: POTASSIUM CHLORIDE 20 MEQ TABLET 40 MEQ PO (09:55)
--- NOTE | 2021-11-25 11:30 | PM.IMPN ---
Progress Note: A&P Assessment and Plan (1) Acute hyponatremia: Code(s): E87.1 - Hypo-osmolality and hyponatremia Status: Acute Assessment and Plan: Probable acute and of chronic hyponatremia worsening today Monitor sodium level Free water restriction Salt tablet Diuresis daily evaluation Status post hypertonic saline Nephrology consult Improved Monitor sodium level Most likely discharge on Monday to rehab 11/23/2021 interval history: 86-year-old female presented with hyponatremia, had been treated hypertonic saline, salt tabs as well treated with fluid restriction patient's sodium has improved today is 131 compared to 118 upon arrival, will increase her restricted free fluid from 800 cc to 1200 cc today will continue to monitor, 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 11/25/2021 interval history: 86-year-old female presented with hyponatremia, had been treated hypertonic saline, salt tabs as well treated with fluid restriction patient's sodium has improved is 128 compared to 118 upon arrival, patient is being treated with slat 1gram TID, spoke with Dr. Cooper, will increase salt tablets 1 g q.i.d. from t.i.d. and increase furosemide 20 mg t.i.d. 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 (2) Lung mass: Code(s): R91.8 - Other nonspecific abnormal finding of lung field Status: Acute Assessment and Plan: No h/o tobacco abuse. Given CT and CXR finding, pulm for evaluation for biopsy of lesion and LN CT scan-guided lung biopsy on 11/22/2021 (3) Community acquired pneumonia: Code(s): J18.9 - Pneumonia, unspecified organism Status: Acute Assessment and Plan: Continue Levaquin Leukocytosis improved (4) Insomnia: Qualifiers: Insomnia type: unspecified Qualified Code(s): G47.00 - Insomnia, unspecified Code(s): G47.00 - Insomnia, unspecified Status: Acute Assessment and Plan: continue lunesta (5) Thrombocytosis: Code(s): D75.839 - Thrombocytosis, unspecified Status: Acute Assessment and Plan: potentially 2/2 underlying malginancy, continue to monitor (6) Anemia: Code(s): D64.9 - Anemia, unspecified Status: Acute Assessment and Plan: Probably anemia of chronic disease iron studies, ferritin monitor CBC (7) Numbness of left foot: Code(s): R20.8 - Other disturbances of skin sensation Status: Acute Assessment and Plan: Probably peripheral neuropathy will get MRI of the lumbar spine patient has intermittent back pain and has lung mass concern for malignancy with metastasis Subjective Date/time seen: 11/25/21 11:30 11/25/2021 interval history: 86-year-old female carlos
[2021-11-25 14:00] VITALS: BP 108/42; PULSE 123; RESP 16; TEMP 37.6; O2SAT 95
[2021-11-25] MEDS: ZOLPIDEM TARTRATE (*CRX) 5 MG TABLET PO (20:45)
[2021-11-25 22:00] VITALS: BP 106/54; PULSE 100; RESP 16; TEMP 36.8; O2SAT 90
[2021-11-26 04:51] LABS: Hematocrit 29.1 % (37.0-47.0); Hemoglobin 9.2 g/dL (12.0-15.0); Mean Corpuscular HGB Conc 31.6 g/dl (32-36); Mean Corpuscular Hemoglobin 28.2 pg (26-34); Mean Corpuscular Volume 89.3 fl (80-100); Mean Platelet Volume 8.5 fl (7.4-10.4); Platelet Count Result 438 k/mm3 (150-375); Red Blood Count 3.26 M/mm3 (4.2-5.4); Red Cell Distribution Width 13.3 % (11.5-14.5)
[2021-11-26 04:57] LABS: INR 1.2; Prothrombin Time 15.1 Seconds (11.1-14.7)
[2021-11-26] MEDS: FUROSEMIDE 20 MG TABLET PO ×3 (05:04→20:16)
[2021-11-26 05:08] LABS: Albumin Level 2.8 g/dL (3.5-5.1); Blood Urea Nitrogen 34 mg/dL (7-17); Calcium 9.5 mg/dL (8.4-10.2); Carbon Dioxide > 40 mmol/L (22-30); Chloride 90 mmol/L (98-107); Estimated CRCL calculation 28 ml/min; Estimated Glomerular Filt Rate 53; Glucose 130 mg/dL (65-110); Magnesium 1.8 mg/dL (1.6-2.3); Phosphorus 5.7 mg/dL (2.5-4.5); Potassium 3.5 mmol/L (3.4-5.0); Sodium 134 mmol/L (137-145)
[2021-11-26 05:13] LABS: CRP 21.5 mg/dL (<1.0)
[2021-11-26 05:17] VITALS: O2SAT 92
[2021-11-26 05:59] VITALS: BP 111/61; PULSE 98; RESP 16; TEMP 36.8; O2SAT 90
[2021-11-26] MEDS: SODIUM CHLORIDE 1 GM TABLET PO ×4 (08:31→20:16)
[2021-11-26] MEDS: DEMECLOCYCLINE HCL 150 MG TABLET PO ×4 (08:31→20:16)
--- NOTE | 2021-11-26 11:46 | PM.PNNEP ---
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 replete K+ as needed follow trend of repeat sodium (2) Pneumonia: Code(s): J18.9 - Pneumonia, unspecified organism Status: Acute Assessment and Plan: initially presumed to be community acquired however, now concerns for possible aspiration antibiotics adjusted today by Pulmonary (3) Lung mass: Code(s): R91.8 - Other nonspecific abnormal finding of lung field Status: Acute Assessment and Plan: high index of suspicion for malignancy initially s/p biopsy for definitive diagnosis - pathology reports no evidence of malignancy Will continue to follow intermittently while hospitalized. Subjective Date/time seen: 11/26/21 11:46 Sodium level improved by AM labs; results of lung mass biopsy do not reveal malignancy (although the suspicion remains at this time); other than weakness and fatigue, no other acute issues/complaints voiced; no events overnight or earlier this AM. Exam Narrative: General: elderly female in NAD Heart: normal S1 and S2; no rub Lungs: decreased at the bases Abdomen: soft, nontender, nondistended, positive bowel sounds Extremities: no cyanosis or clubbing; no edema Skin: warm and dry Objective Data Vital Signs Vital Signs: Vital Signs Temp Pulse Resp BP Pulse Ox 11/26/21 05:59 36.8 C 98 16 111/61 90 11/26/21 05:17 92 11/25/21 22:00 36.8 C 100 16 106/54 L 90 11/25/21 14:00 37.6 C 123 H 16 108/42 L 95 Intake/Output Intake/Output: Intake & Output 11/23/21 11/24/21 11/25/21 11/26/21 23:59 23:59 23:59 23:59 Intake Total 920 846 640 170 Output Total 1 Balance 920 846 639 170 Meds/Results Medications: Active Medications Generic Name Dose Route Start Last Admin Trade Name Freq PRN Reason Stop Dose Admin Acetaminophen 650 mg 11/16/21 17:06 11/24/21 14:12 Acetaminophen 325 Mg Tablet PO 650 mg Q6H PRN Administration Mild Pain (1-3) or Fever Alteplase, Recombinant 2 mg 11/22/21 13:07 11/22/21 13:59 Alteplase 2 Mg Vial (Cathflo) IV PUSH 2 mg ONCE PRN Administration Line Occlusion Alteplase, Recombinant 2 mg 11/22/21 13:07 11/22/21 13:59 Alteplase 2 Mg Vial (Cathflo) IV PUSH 2 mg ONCE PRN Administration Line Occlusion Demeclocycline HCl 150 mg 11/20/21 21:00 11/26/21 08:31 Demeclocycline Hcl 150 Mg Tablet PO 150 mg QID ZENON Administration Enoxaparin Sodium 40 mg 11/16/21 09:00 11/16/21 08:50 Enoxaparin 40 Mg/0.4 Ml Syringe SUB-Q 40 mg DAILY ZENON Administration Furosemide 20 mg 11/21/21 07:10 11/26/21 05:04 Furosemide 20 Mg Tablet PO 20 mg Q8HR ZENON Administration Levofloxacin/Dextrose 750 mg in 150 mls @ 100 mls/hr 11/20/21 21:00 11/24/21 21:06 Levaquin 750 Mg/D5w 150 Ml IVPB 100 mls/hr Q48H ZENON Administration Piperacillin Sod/Tazobactam Sod 2.25 gm in 50 mls @ 100 mls/hr 11/24/21 10:00 11/26/21 10:08 Zosyn 2.25 Gm/D5w 50 Ml IVPB 100 mls/hr Q6H ZENON Administration Miscellaneous Information 0 each 11/25/21 00:01 Zolpidem Order Requires Renewal Or Will Be Discontinued On 11/2612/25/21 00:00 CLARIFY ZENON Ondansetron HCl 4 mg 11/17/21 07:27 11/17/21 08:14 Ondansetron Inj 4 Mg/2 Ml Vial IV PUSH 4 mg Q6H PRN Administration Nausea And Vomiting Sodium Chloride 20 ml 05
--- NOTE | 2021-11-26 13:55 | PM.PNPUL ---
Progress Note: A&P Assessment and Plan (1) Lung mass: Code(s): R91.8 - Other nonspecific abnormal finding of lung field Status: Acute (2) Community acquired pneumonia: Code(s): J18.9 - Pneumonia, unspecified organism Status: Acute Assessment and Plan: 86-year-old female with multiple lung nodules presented with hyponatremia, leukocytosis and low-grade fever. In addition to multiple lung nodules she has had a right upper lobe posterior segment consolidation and also RLL smaller consolidation for which she has been treated with antibiotics for possible community-acquired pneumonia. Right lung nodule biopsy showed no evidence of malignancy. There was evidence of chronic inflammation with some fibrosis and rare multinucleated giant cells. Stains for AFB and fungi negative. The patient continues to have leukocytosis, Elevated CRP. Respiratory status however has been stable and patient remaining on room air. Serology testing for underlying autoimmune disease pending. Rheumatoid factor elevated but biopsy findings not consistent with rheumatoid nodules in the absence of a vasculitic component. Based on the radiological findings, histopathology picture of recent CT-guided biopsy of lung nodule with negative stain for AFB and fungal disease, the lack of response to antibiotics, the overall picture is more consistent with lung inflammation like cryptogenic organizing pneumonia. Had a lengthy discussion with the patient's stepdaughter regarding further management. 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 This was discussed at length with the patient's stepdaughter, including benefits and risks for complications related to each approach. per patient's stepdaughter, the patient was very skeptical about having the CT-guided needle biopsy and may refuse a more invasive procedures like VATS. Patient's stepdaughter will discuss these issues with other family members and will let us know. In the meantime, we will continue with current regimen of antibiotics while waiting results of other serology tests. Subjective Date/time seen: 11/26/21 13:55 Patient reports no new respiratory symptoms. She remains on room air. She has no cough fever no sputum production. Currently on antibiotics for empiric treatment of pneumonia. Review of Systems Review of Systems: All systems reviewed & are unremarkable except as noted in HPI and below Exam Narrative: GENERAL APPEARANCE: Well developed, well nourished, alert and cooperative, and appears to be in no acute distress While on room air SKIN: Inspection of the skin reveals no rashes, ulcerations or petechiae. HEENT: Sclerae anicteric and conjunctivae pink and moist. Extraocular movements were intact and pupils were equal, round, and reactive to light. The oral mucosa, hard and soft palate, tongue and posterior pharynx were normal. NECK: Supple. There was no thyroid enlargement, and no tenderness, or masses were felt. LUNGS: Auscultation of the lungs revealed normal breath sounds without any other adventitious sounds or rubs. CARDIAC: There was a regular rate and rhythm without any murmurs. ABDOMEN: Soft and nontender with normal bowel sounds. There was no organomegaly. LYMPH NODES: No lymphadenopathy was appreciated in the neck. EXTREMITIES: No cyanosis, clubbing or edema. NEUROLOGIC: Alert and oriented x 3. Normal affect. Objective Data Vital Signs Vital Signs: Vital Signs - 24 hr 11/25/21 14:00 11/25/21 22:00 11/26/21 05:17 Temperature 37.6 C 36.8 C Pulse Rate 123 H 100 Respiratory Rate 16 16 Blood Pressure 108/42 L 106/54 L Pulse Oximetry 95 90 92 11/26/21 05:59 Temperature 36.8 C Pulse Rate 98 Respiratory Rate 16 Blood Pressure 111/61 Pulse Oximetry 90 Intake/Output Intake/Output: Intake & Output 11/23/21 11/24/21 11/25/2111/26
[2021-11-26 14:00] VITALS: BP 100/56; PULSE 91; RESP 24; TEMP 36.3; O2SAT 93
--- NOTE | 2021-11-26 15:22 | PM.IMPN ---
Progress Note: A&P Assessment and Plan (1) Acute hyponatremia: Code(s): E87.1 - Hypo-osmolality and hyponatremia Status: Acute Assessment and Plan: Probable acute and of chronic hyponatremia worsening today Monitor sodium level Free water restriction Salt tablet Diuresis daily evaluation Status post hypertonic saline Nephrology consult Improved Monitor sodium level Most likely discharge on Monday to rehab 11/23/2021 interval history: 86-year-old female presented with hyponatremia, had been treated hypertonic saline, salt tabs as well treated with fluid restriction patient's sodium has improved today is 131 compared to 118 upon arrival, will increase her restricted free fluid from 800 cc to 1200 cc today will continue to monitor, 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 11/25/2021 interval history: 86-year-old female presented with hyponatremia, had been treated hypertonic saline, salt tabs as well treated with fluid restriction patient's sodium has improved is 128 compared to 118 upon arrival, patient is being treated with slat 1gram TID, spoke with Dr. Cooper, will increase salt tablets 1 g q.i.d. from t.i.d. and increase furosemide 20 mg t.i.d. 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 11/26/2021 interval history: 86-year-old female presented with hyponatremia, had been treated hypertonic saline, salt tabs as well treated with fluid restriction patient's sodium has improved was 128 on 11/25 compared to 118 upon arrival, patient is being treated with slat 1gram TID, on 11/[address] Cooper, increased salt tablets 1 g q.i.d. from t.i.d. and increase furosemide 20 mg t.i.d. 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 patient is not very keen to work with physical therapy, patient is encouraged will continue to monitor. (2) Lung mass: Code(s): R91.8 - Other nonspecific abnormal finding of lung field Status: Acute Assessment and Plan: No h/o tobacco abuse. Given CT and CXR finding, pulm for evaluation for biopsy of lesion and LN CT scan-guided lung biopsy on 11/22/2021 (3) Community acquired pneumonia: Code(s): J18.9 - Pneumonia, unspecified organism Status:
[2021-11-26 21:26] VITALS: O2SAT 94
[2021-11-26 22:00] VITALS: BP 115/53; PULSE 85; RESP 24; TEMP 36.7; O2SAT 94
[2021-11-27] MEDS: FUROSEMIDE 20 MG TABLET PO ×3 (04:36→20:33)
[2021-11-27 05:12] LABS: Hematocrit 31.1 % (37.0-47.0); Hemoglobin 9.8 g/dL (12.0-15.0); Mean Corpuscular HGB Conc 31.5 g/dl (32-36); Mean Corpuscular Hemoglobin 28.2 pg (26-34); Mean Corpuscular Volume 89.6 fl (80-100); Mean Platelet Volume 8.5 fl (7.4-10.4); Platelet Count Result 485 k/mm3 (150-375); Red Blood Count 3.47 M/mm3 (4.2-5.4); Red Cell Distribution Width 13.2 % (11.5-14.5)
[2021-11-27 05:24] LABS: Albumin Level 3.1 g/dL (3.5-5.1); Blood Urea Nitrogen 36 mg/dL (7-17); Calcium 9.7 mg/dL (8.4-10.2); Carbon Dioxide > 40 mmol/L (22-30); Chloride 92 mmol/L (98-107); Estimated CRCL calculation 28 ml/min; Estimated Glomerular Filt Rate 53; Glucose 130 mg/dL (65-110); Phosphorus 4.6 mg/dL (2.5-4.5); Sodium 136 mmol/L (137-145)
[2021-11-27 06:00] VITALS: BP 115/56; PULSE 87; RESP 24; TEMP 36.3; O2SAT 95
[2021-11-27] MEDS: SODIUM CHLORIDE 1 GM TABLET PO ×3 (09:09→22:30)
[2021-11-27] MEDS: ACETAMINOPHEN 325 MG TABLET 650 MG PO ×2 (09:09→15:58)
[2021-11-27] MEDS: DEMECLOCYCLINE HCL 150 MG TABLET PO ×4 (09:10→20:33)
--- NOTE | 2021-11-27 11:51 | PM.IMPN ---
Progress Note: A&P Assessment and Plan (1) Acute hyponatremia: Code(s): E87.1 - Hypo-osmolality and hyponatremia Status: Acute Assessment and Plan: Probable acute and of chronic hyponatremia worsening today Monitor sodium level Free water restriction Salt tablet Diuresis daily evaluation Status post hypertonic saline Nephrology consult Improved Monitor sodium level Most likely discharge on Monday to rehab 11/23/2021 interval history: 86-year-old female presented with hyponatremia, had been treated hypertonic saline, salt tabs as well treated with fluid restriction patient's sodium has improved today is 131 compared to 118 upon arrival, will increase her restricted free fluid from 800 cc to 1200 cc today will continue to monitor, 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 11/25/2021 interval history: 86-year-old female presented with hyponatremia, had been treated hypertonic saline, salt tabs as well treated with fluid restriction patient's sodium has improved is 128 compared to 118 upon arrival, patient is being treated with slat 1gram TID, spoke with Dr. Cooper, will increase salt tablets 1 g q.i.d. from t.i.d. and increase furosemide 20 mg t.i.d. 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 11/26/2021 interval history: 86-year-old female presented with hyponatremia, had been treated hypertonic saline, salt tabs as well treated with fluid restriction patient's sodium has improved was 128 on 11/25 compared to 118 upon arrival, patient is being treated with slat 1gram TID, on 11/[address] Cooper, increased salt tablets 1 g q.i.d. from t.i.d. and increase furosemide 20 mg t.i.d. 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 patient is not very keen to work with physical therapy, patient is encouraged will continue to monitor. 11/27/2021 interval history: 86-year-old female presented with hyponatremia, had been treated hypertonic saline, salt tabs as well treated with fluid restriction patient's sodium has improved was 128 on 11/25 compared to 118 upon arrival, patient is being treated with slat 1gram TID, on 11/[address] Cooper, increased salt tablets 1 g q.i.d. from t.i.d. and increase furosemide 20 mg
[2021-11-27 15:47] VITALS: BP 115/56; PULSE 92; RESP 24; TEMP 36.6; O2SAT 93
--- NOTE | 2021-11-27 18:06 | PM.PNPUL ---
Progress Note: A&P Assessment and Plan (1) Lung mass: Code(s): R91.8 - Other nonspecific abnormal finding of lung field Status: Acute (2) Community acquired pneumonia: Code(s): J18.9 - Pneumonia, unspecified organism Status: Acute Assessment and Plan: 86-year-old female with multiple lung nodules presented with hyponatremia, leukocytosis and low-grade fever. In addition to multiple lung nodules she has had a right upper lobe posterior segment consolidation and also RLL smaller consolidation for which she has been treated with antibiotics for possible community-acquired pneumonia. Right lung nodule biopsy showed no evidence of malignancy. There was evidence of chronic inflammation with some fibrosis and rare multinucleated giant cells. Stains for AFB and fungi negative. The patient continues to have leukocytosis, Elevated CRP. Respiratory status however has been stable and patient remaining on room air. Serology testing for underlying autoimmune disease pending. Rheumatoid factor elevated but biopsy findings not consistent with rheumatoid nodules in the absence of a vasculitic component. Based on the radiological findings, histopathology picture of recent CT-guided biopsy of lung nodule with negative stain for AFB and fungal disease, the lack of response to antibiotics, the overall picture is more consistent with lung inflammation like cryptogenic organizing pneumonia. Had a lengthy discussion with the patient's stepdaughter regarding further management. 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 This was discussed at length with the patient's stepdaughter, including benefits and risks for complications related to each approach. Dr Villagomez spoke with her stepdaughter yesterday. The patient told her nurse today that she wants to have the CT-guided needle biopsy. In the meantime, we will continue with current regimen of antibiotics while waiting results of other serology tests. Subjective Date/time seen: 11/27/21 18:06 Patient reports no new respiratory symptoms. She remains on room air. She is lying in bed, very weak, not in distress. Currently on antibiotics for empiric treatment of pneumonia. Review of Systems Review of Systems: All systems reviewed & are unremarkable except as noted in HPI and below Exam Narrative: GENERAL APPEARANCE: Well developed, well nourished, alert and cooperative, and appears to be in no acute distress While on room air SKIN: Inspection of the skin reveals no rashes, ulcerations or petechiae. HEENT: Sclerae anicteric and conjunctivae pink and moist. Extraocular movements were intact and pupils were equal, round, and reactive to light. The oral mucosa, hard and soft palate, tongue and posterior pharynx were normal. NECK: Supple. There was no thyroid enlargement, and no tenderness, or masses were felt. LUNGS: Auscultation of the lungs revealed normal breath sounds without any other adventitious sounds or rubs. CARDIAC: There was a regular rate and rhythm without any murmurs. ABDOMEN: Soft and nontender with normal bowel sounds. There was no organomegaly. LYMPH NODES: No lymphadenopathy was appreciated in the neck. EXTREMITIES: No cyanosis, clubbing or edema. NEUROLOGIC: Alert and oriented x 3. Normal affect. Objective Data Vital Signs Vital Signs: Vital Signs - 24 hr 11/26/21 21:26 11/26/21 22:00 11/27/21 06:00 Temperature 36.7 C 36.3 C L Pulse Rate 85 87 Respiratory Rate 24 H 24 H Blood Pressure 115/53 L 115/56 L Pulse Oximetry 94 94 95 11/27/21 15:47 Temperature 36.6 C Pulse Rate 92 Respiratory Rate 24 H Blood Pressure 115/56 L Pulse Oximetry 93 Intake/Output Intake/Output: Intake & Output 11/24/21 11/25/21 11/26/21 11/27/21 23:59 23:59 23:59 23:59 Intake Total 996 640 560 390 Output Total 1 Balance 996 639 560 3
[2021-11-27 20:00] VITALS: PULSE 92; RESP 24; O2SAT 93
[2021-11-27 20:44] LABS: Anti Cyclic Citrullinated Pept <16 Units (<20)
[2021-11-27 22:00] VITALS: BP 109/49; PULSE 101; RESP 28; TEMP 36.9; O2SAT 95
[2021-11-28] MEDS: SODIUM CHLORIDE 1 GM TABLET PO ×3 (04:45→21:30)
[2021-11-28] MEDS: FUROSEMIDE 20 MG TABLET PO ×3 (04:45→20:05)
[2021-11-28 04:46] LABS: Hematocrit 31.4 % (37.0-47.0); Mean Corpuscular HGB Conc 31.8 g/dl (32-36); Mean Corpuscular Hemoglobin 28.2 pg (26-34); Mean Corpuscular Volume 88.5 fl (80-100); Mean Platelet Volume 8.5 fl (7.4-10.4); Platelet Count Result 540 k/mm3 (150-375); Red Blood Count 3.55 M/mm3 (4.2-5.4); Red Cell Distribution Width 13.3 % (11.5-14.5); White Blood Count 13.7 K/mm3 (4.5-10.0)
[2021-11-28 05:02] LABS: Blood Urea Nitrogen 44 mg/dL (7-17); Calcium 9.8 mg/dL (8.4-10.2); Carbon Dioxide > 40 mmol/L (22-30); Chloride 88 mmol/L (98-107); Estimated CRCL calculation 26 ml/min; Estimated Glomerular Filt Rate 47; Glucose 133 mg/dL (65-110); Phosphorus 4.5 mg/dL (2.5-4.5); Potassium 2.9 mmol/L (3.4-5.0); Sodium 134 mmol/L (137-145)
[2021-11-28 06:00] VITALS: BP 97/52; PULSE 97; RESP 22; TEMP 36.4; O2SAT 95
[2021-11-28 08:00] VITALS: PULSE 97; RESP 22; O2SAT 95
[2021-11-28] MEDS: DEMECLOCYCLINE HCL 150 MG TABLET PO ×4 (08:07→20:05)
--- NOTE | 2021-11-28 09:42 | PC.NURSE ---
pt having difficulty with swallowing this morning, NPO at this time per MD Lynne, bedside swallow eval ordered. One time Lovenox order 40 mg sq, PO potassium 40 mew at 900 and 1200 changed to IV 40 meq x2 bags. Md Lynne to discuss on changing other medication to IV form after bedside swallow study. Possible Lung biopsy Monday, pt will be NPO for biopsy at midnight.
[2021-11-28] MEDS: POTASSIUM CHLORIDE INJ 40 MEQ in SODIUM CHLORIDE 0.9% IV 500 ML 130 MEQ IVPB ×2 (09:45→13:55)
[2021-11-28] MEDS: ENOXAPARIN 30 MG/0.3 ML SYRINGE SUB-Q (10:14)
--- NOTE | 2021-11-28 10:55 | PCSTNOTE ---
Please refer to the Modified Barium Swallow Evaluation in the EMR.
--- NOTE | 2021-11-28 11:54 | PM.IMPN ---
Progress Note: A&P Assessment and Plan (1) Acute hyponatremia: Code(s): E87.1 - Hypo-osmolality and hyponatremia Status: Acute Assessment and Plan: Probable acute and of chronic hyponatremia worsening today Monitor sodium level Free water restriction Salt tablet Diuresis daily evaluation Status post hypertonic saline Nephrology consult Improved Monitor sodium level Most likely discharge on Monday to rehab 11/23/2021 interval history: 86-year-old female presented with hyponatremia, had been treated hypertonic saline, salt tabs as well treated with fluid restriction patient's sodium has improved today is 131 compared to 118 upon arrival, will increase her restricted free fluid from 800 cc to 1200 cc today will continue to monitor, 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 11/25/2021 interval history: 86-year-old female presented with hyponatremia, had been treated hypertonic saline, salt tabs as well treated with fluid restriction patient's sodium has improved is 128 compared to 118 upon arrival, patient is being treated with slat 1gram TID, spoke with Dr. Cooper, will increase salt tablets 1 g q.i.d. from t.i.d. and increase furosemide 20 mg t.i.d. from b.i.d., will continue to monitor, most likely patient has SIADH secondary to concerning for lung mass and pneumonia patient is also found to lung mass and had a biopsy on 11/22 results does not suggest malignancy, patient is seen by sap project manager further recommendation to follow, patient was seen sap project manager suspect patient has aspiration pneumonia started the patient on Zosyn to cover for anaerobic,and further recommendation to follow will continue to monitor. 11/26/2021 interval history: 86-year-old female presented with hyponatremia, had been treated hypertonic saline, salt tabs as well treated with fluid restriction patient's sodium has improved was 128 on 11/25 compared to 118 upon arrival, patient is being treated with slat 1gram TID, on 11/[address] Cooper, increased salt tablets 1 g q.i.d. from t.i.d. and increase furosemide 20 mg t.i.d. from b.i.d., today her sodium is 134, will continue to monitor, most likely patient has SIADH secondary to concerning for lung mass and pneumonia patient is also found to lung mass and had a biopsy on 11/22 results does not suggest malignancy, patient is seen by sap project manager and recommending needle guided biopsy via VATS, patient is thinking about it, further recommendation to follow, also sap project manager suspect patient has aspiration pneumonia started the patient on Zosyn to cover for anaerobic,and further recommendation to follow will continue to monitor. patient is not very keen to work with physical therapy, patient is encouraged will continue to monitor. 11/27/2021 interval history: 86-year-old female presented with hyponatremia, had been treated hypertonic saline, salt tabs as well treated with fluid restriction patient's sodium has improved was 128 on 11/25 compared to 118 upon arrival, patient is being treated with slat 1gram TID, on 11/[address] Cooper, increased salt tablets 1 g q.i.d. from t.i.d. and increase furosemide 20 mg
--- NOTE | 2021-11-28 11:55 | PM.PNNEP ---
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 replete K+ as needed follow trend of repeat sodium (2) Pneumonia: Code(s): J18.9 - Pneumonia, unspecified organism Status: Acute Assessment and Plan: initially presumed to be community acquired however, now concerns for possible aspiration antibiotics adjusted today by Pulmonary (3) Lung mass: Code(s): R91.8 - Other nonspecific abnormal finding of lung field Status: Acute Assessment and Plan: high index of suspicion for malignancy initially s/p biopsy for definitive diagnosis - pathology reports no evidence of malignancy Will continue to follow intermittently while hospitalized. Subjective Date/time seen: 11/28/21 11:55 No new issues or problems to report at this time; just feels tired and not really wanting work with PT/OT as the time; sodium remains relatively stable at this time. Exam Narrative: General: elderly female in NAD Heart: normal S1 and S2; no rub Lungs: decreased at the bases Abdomen: soft, nontender, nondistended, positive bowel sounds Extremities: no cyanosis or clubbing; no edema Skin: warm and dry Objective Data Vital Signs Vital Signs: Vital Signs Temp Pulse Resp BP Pulse Ox 11/28/21 08:00 97 22 H 95 11/28/21 06:00 36.4 C 97 22 H 97/52 L 95 11/27/21 22:00 36.9 C 101 H 28 H 109/49 L 95 11/27/21 20:00 92 24 H 93 11/27/21 15:47 36.6 C 92 24 H 115/56 L 93 Intake/Output Intake/Output: Intake & Output 11/25/21 11/26/21 11/27/21 11/28/21 23:59 23:59 23:59 23:59 Intake Total 640 710 560 100 Output Total 1 Balance 639 710 560 100 Meds/Results Medications: Active Medications Generic Name Dose Route Start Last Admin Trade Name Jmq PRN Reason Stop Dose Admin Acetaminophen 650 mg 11/16/21 17:06 11/27/21 15:58 Acetaminophen 325 Mg Tablet PO 650 mg Q6H PRN Administration Mild Pain (1-3) or Fever Alteplase, Recombinant 2 mg 11/22/21 13:07 11/22/21 13:59 Alteplase 2 Mg Vial (Cathflo) IV PUSH 2 mg ONCE PRN Administration Line Occlusion Alteplase, Recombinant 2 mg 11/22/21 13:07 11/22/21 13:59 Alteplase 2 Mg Vial (Cathflo) IV PUSH 2 mg ONCE PRN Administration Line Occlusion Demeclocycline HCl 150 mg 11/20/21 21:00 11/28/21 08:07 Demeclocycline Hcl 150 Mg Tablet PO 150 mg QID ZENON Administration Enoxaparin Sodium 40 mg 11/16/21 09:00 11/16/21 08:50 Enoxaparin 40 Mg/0.4 Ml Syringe SUB-Q 40 mg DAILY ZENON Administration Furosemide 20 mg 11/26/21 21:00 11/28/21 04:45 Furosemide 20 Mg Tablet PO 20 mg Q8H ZENON Administration Levofloxacin/Dextrose 750 mg in 150 mls @ 100 mls/hr 11/20/21 21:00 11/26/21 21:50 Levaquin 750 Mg/D5w 150 Ml IVPB Infused Q48H ZENON Infusion Piperacillin Sod/Tazobactam Sod 2.25 gm in 50 mls @ 100 mls/hr 11/24/21 10:00 11/28/21 09:36 Zosyn 2.25 Gm/D5w 50 Ml IVPB Infused Q6H ZENON Infusion Potassium Chloride 40 meq/ 520 mls @ 130 mls/hr 11/28/21 13:00 Sodium Chloride IVPB 11/28/21 16:59 ONCE ONE Potassium Chloride 40 meq/ 520 mls @ 130 mls/hr 11/28/21 09:35 11/28/21 09:45 Sodium Chloride IVPB 11/28/21 13:34 130 mls/hr ONCE ONE Administration Miscellaneous Information 0 each 11/25/21 00:01 Zolpidem Order Requires Renewal Or Will Be Discontin
--- NOTE | 2021-11-28 14:14 | PCPTNOTE ---
The patient treatment was not able to be completed on 11/28 due to pt not being appropriate for PT treatment. The pt didn't respond much to questions. She did say that They want me to get up to the chair, but I don't want to. Will continue per PT plan of care.
[2021-11-28 18:44] VITALS: BP 121/50; PULSE 89; RESP 16; TEMP 36.2; O2SAT 94
[2021-11-28 20:43] VITALS: BP 114/56; PULSE 88; RESP 18; TEMP 36.4; O2SAT 95
[2021-11-29] VITALS (8 sets, daily range): BP systolic 108–120; BP diastolic 52–59; PULSE 84–103; RESP 14–22; TEMP 36.1–36.3; O2SAT 95–100
[2021-11-29] MEDS: SODIUM CHLORIDE 1 GM TABLET PO (05:20)
[2021-11-29] MEDS: FUROSEMIDE 20 MG TABLET PO ×2 (05:20→16:02)
[2021-11-29 06:12] LABS: Hematocrit 29.6 % (37.0-47.0); Hemoglobin 9.2 g/dL (12.0-15.0); Mean Corpuscular HGB Conc 31.1 g/dl (32-36); Mean Corpuscular Hemoglobin 28.2 pg (26-34); Mean Corpuscular Volume 90.8 fl (80-100); Mean Platelet Volume 8.7 fl (7.4-10.4); Platelet Count Result 483 k/mm3 (150-375); Red Blood Count 3.26 M/mm3 (4.2-5.4); Red Cell Distribution Width 13.3 % (11.5-14.5); White Blood Count 8.6 K/mm3 (4.5-10.0)
[2021-11-29 06:26] LABS: Albumin Level 2.8 g/dL (3.5-5.1); Anion Gap 4 mmol/L (8-16); Blood Urea Nitrogen 46 mg/dL (7-17); Calcium 9.5 mg/dL (8.4-10.2); Carbon Dioxide 37 mmol/L (22-30); Chloride 99 mmol/L (98-107); Estimated CRCL calculation 22 ml/min; Estimated Glomerular Filt Rate 39; Glucose 162 mg/dL (65-110); Phosphorus 3.8 mg/dL (2.5-4.5); Potassium 2.7 mmol/L (3.4-5.0); Sodium 140 mmol/L (137-145)
[2021-11-29 07:41] LABS: Immunoglobulin G, Serum 1055 mg/dL (600-1540); Immunoglobulin G1 551 mg/dL (382-929); Immunoglobulin G2 277 mg/dL (241-700); Immunoglobulin G3 73 mg/dL (22-178); Immunoglobulin G4 88.6 mg/dL (4.0-86.0)
[2021-11-29 07:41] LABS: Legionella pneumophila Ag Ur Not Detected (Not Detected); Pneumococcal Antigen Urine Not Detected (Not Detected)
[2021-11-29] MEDS: KCL 40 MEQ/WATER 100 ML 100 ML 25 ML IVPB ×2 (07:58→12:54)
[2021-11-29] MEDS: DEMECLOCYCLINE HCL 150 MG TABLET PO ×4 (07:59→20:27)
[2021-11-29 08:45] LABS: Magnesium 2.1 mg/dL (1.6-2.3)
--- NOTE | 2021-11-29 09:39 | PCPTNOTE ---
PT attempted to see patient at this time but patient was unable to participate at this time. RN and MNikhil. in room, patient not verbally responding and has delay in following commands to move extremities. PT will continue to follow per plan of care when patient is able to participate.
--- NOTE | 2021-11-29 09:39 | PC.NURSE ---
MD Lynne assess at bedside, abg ordered, pt staring into space, nonverbal, K 2.7 infusing IV Kcl 40 meq x2 for replacement. Mag 2.1. Swallowed pill whole in applesauce this morning. Able to hold arms up and keep in air without dropping. Remains weak, follows commands with eyes. Placed on tele. MD Lynne called daughter and discussed comfort care. vs 100 97.0 108/59 99% 2 l NC for comfort only 20
[2021-11-29 10:00] LABS: Alveolar/Arterial O2 Gradient 5.6 mmHg; Base Excess ABG 11.5 mEq/l (+/-2.0); Fractional Inspired Oxygen 28 %; Oxygen Content ABG 15.7 %vol (16.0-22.0); Oxygen Saturation ABG 99.1 % (95.0-100.0); Oxyhemoglobin 97.7 % THb (90.0-100.0); PCO2 ABG 41.3 mmHg (35.0-45.0); PO2 ABG 145.3 mmHg (80.0-100.0); PO2 FiO2 Ratio Arterial Blood 5.19 %; Total Hemoglobin 11.2 g/dL (12.0-18.0)
[2021-11-29 10:01] LABS: Device NASAL CANNULA; Modified Allen's Test Pass; Site Drawn RIGHT RADIAL; pH ABG 7.546 (7.350-7.450)
[2021-11-29 11:32] LABS: CRP 11.1 mg/dL (<1.0)
--- NOTE | 2021-11-29 12:19 | PM.PNPUL ---
Progress Note: A&P Assessment and Plan (1) Lung mass: Code(s): R91.8 - Other nonspecific abnormal finding of lung field Status: Acute (2) Community acquired pneumonia: Code(s): J18.9 - Pneumonia, unspecified organism Status: Acute Assessment and Plan: 86-year-old female with multiple lung nodules presented with hyponatremia, leukocytosis and low-grade fever. In addition to multiple lung nodules she has had a right upper lobe posterior segment consolidation and also RLL smaller consolidation for which she has been treated with antibiotics for possible community-acquired pneumonia. Right lung nodule biopsy showed no evidence of malignancy. There was evidence of chronic inflammation with some fibrosis and rare multinucleated giant cells. Stains for AFB and fungi negative. No leukocytosis on today's CBC and CRP significantly reduced since last week. Plan: chest x-ray today regarding a right upper lobe consolidation. Will anticipate stopping antibiotics in a.m.. Some serology testing for underlying autoimmune disease pending. If there is no evidence of infiltrate improvement, we will consider adding oral steroids for possible cryptogenic organizing pneumonia. This empiric treatment plan was discussed with patient's stepdaughters who were more in favor of this treatment than proceeding with a VATS lung biopsy. Subjective Date/time seen: 11/29/21 12:19 No significant change in patient's respiratory status. Remains on room air. afebrile on antibiotics. Slow to respond this a.m.. Appeared awake but not answering questions Review of Systems Review of Systems: All systems reviewed & are unremarkable except as noted in HPI and below Exam Narrative: GENERAL APPEARANCE: Well developed, well nourished, alert and cooperative, and appears to be in no acute distress While on room air SKIN: Inspection of the skin reveals no rashes, ulcerations or petechiae. HEENT: Sclerae anicteric and conjunctivae pink and moist. Extraocular movements were intact and pupils were equal, round, and reactive to light. The oral mucosa, hard and soft palate, tongue and posterior pharynx were normal. NECK: Supple. There was no thyroid enlargement, and no tenderness, or masses were felt. LUNGS: Auscultation of the lungs revealed normal breath sounds without any other adventitious sounds or rubs. CARDIAC: There was a regular rate and rhythm without any murmurs. ABDOMEN: Soft and nontender with normal bowel sounds. There was no organomegaly. LYMPH NODES: No lymphadenopathy was appreciated in the neck. EXTREMITIES: No cyanosis, clubbing or edema. NEUROLOGIC: Alert and oriented x 3. Normal affect. Objective Data Vital Signs Vital Signs: Vital Signs - 24 hr 11/28/21 18:44 11/28/21 20:43 11/29/21 05:33 Temperature 36.2 C L 36.4 C 36.3 C L Pulse Rate 89 88 84 Respiratory Rate 16 18 18 Blood Pressure 121/50 L 114/56 L 115/52 L Pulse Oximetry 94 95 95 11/29/21 08:00 11/29/21 09:40 Temperature 36.1 C L Pulse Rate 84 100 Respiratory Rate 18 22 H Blood Pressure 108/59 L Pulse Oximetry 95 99 Intake/Output Intake/Output: Intake & Output 11/26/21 11/27/21 11/28/21 11/29/21 23:59 23:59 23:59 23:59 Intake Total 778 085 5426 200 Balance 548 723 8168 200 Meds/Results Medications: Active Medications Generic Name Dose Route Start Last Admin Trade Name Freq PRN Reason Stop Dose Admin Acetaminophen 650 mg 11/16/21 17:06 11/27/21 15:58 Acetaminophen 325 Mg Tablet PO 650 mg Q6H PRN Administration Mild Pain (1-3) or Fever Alteplase, Recombinant 2 mg 11/22/21 13:07 11/22/21 13:59 Alteplase 2 Mg Vial (Cathflo) IV PUSH 2 mg ONCE PRN Administration Line Occlusion Alteplase, Recombinant 2 mg 11/22/21 13:07 11/22/21 13:59 Alteplase 2 Mg Vial (Cathflo) IV PUSH 2 mg ONCE PRN Administration Line Occlusion Demeclocycline HCl 150 mg 11/20/21 21:00 11/29/21 07:59 D
--- NOTE | 2021-11-29 13:18 | PCOTNOTE ---
Attempted to see patient this pm, however patient refused. Pt responded with head nod and head shake to yes and no questions only.
[2021-11-29] MEDS: SODIUM CHLORIDE 500 MG TABLET PO (16:02)
--- NOTE | 2021-11-29 16:02 | PM.IMPN ---
Progress Note: A&P Assessment and Plan (1) Acute hyponatremia: Code(s): E87.1 - Hypo-osmolality and hyponatremia Status: Acute Assessment and Plan: Probable acute and of chronic hyponatremia worsening today Monitor sodium level Free water restriction Salt tablet Diuresis daily evaluation Status post hypertonic saline Nephrology consult Improved Monitor sodium level Most likely discharge on Monday to rehab 11/23/2021 interval history: 86-year-old female presented with hyponatremia, had been treated hypertonic saline, salt tabs as well treated with fluid restriction patient's sodium has improved today is 131 compared to 118 upon arrival, will increase her restricted free fluid from 800 cc to 1200 cc today will continue to monitor, 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 11/25/2021 interval history: 86-year-old female presented with hyponatremia, had been treated hypertonic saline, salt tabs as well treated with fluid restriction patient's sodium has improved is 128 compared to 118 upon arrival, patient is being treated with slat 1gram TID, spoke with Dr. Cooper, will increase salt tablets 1 g q.i.d. from t.i.d. and increase furosemide 20 mg t.i.d. from b.i.d., will continue to monitor, most likely patient has SIADH secondary to concerning for lung mass and pneumonia patient is also found to lung mass and had a biopsy on 11/22 results does not suggest malignancy, patient is seen by district director further recommendation to follow, patient was seen district director suspect patient has aspiration pneumonia started the patient on Zosyn to cover for anaerobic,and further recommendation to follow will continue to monitor. 11/26/2021 interval history: 86-year-old female presented with hyponatremia, had been treated hypertonic saline, salt tabs as well treated with fluid restriction patient's sodium has improved was 128 on 11/25 compared to 118 upon arrival, patient is being treated with slat 1gram TID, on 11/[address] Cooper, increased salt tablets 1 g q.i.d. from t.i.d. and increase furosemide 20 mg t.i.d. from b.i.d., today her sodium is 134, will continue to monitor, most likely patient has SIADH secondary to concerning for lung mass and pneumonia patient is also found to lung mass and had a biopsy on 11/22 results does not suggest malignancy, patient is seen by district director and recommending needle guided biopsy via VATS, patient is thinking about it, further recommendation to follow, also district director suspect patient has aspiration pneumonia started the patient on Zosyn to cover for anaerobic,and further recommendation to follow will continue to monitor. patient is not very keen to work with physical therapy, patient is encouraged will continue to monitor. 11/27/2021 interval history: 86-year-old female presented with hyponatremia, had been treated hypertonic saline, salt tabs as well treated with fluid restriction patient's sodium has improved was 128 on 11/25 compared to 118 upon arrival, patient is being treated with slat 1gram TID, on 11/[address] Cooper, increased salt tablets 1 g q.i.d. from t.i.d. and increase furosemide 20 mg
[2021-11-29 17:17] LABS: Blood Urea Nitrogen 51 mg/dL (7-17); Calcium 9.8 mg/dL (8.4-10.2); Carbon Dioxide > 40 mmol/L (22-30); Chloride 98 mmol/L (98-107); Estimated CRCL calculation 22 ml/min; Estimated Glomerular Filt Rate 39; Glucose 154 mg/dL (65-110); Sodium 140 mmol/L (137-145)
[2021-11-29 17:21] LABS: Glucose Point of Care 144 mg/dl (65-105)
[2021-11-29] MEDS: POTASSIUM CHLORIDE 20 MEQ TABLET 40 MEQ PO (17:44)
[2021-11-30] VITALS (10 sets, daily range): BP systolic 107–117; BP diastolic 54–64; PULSE 70–102; RESP 16–20; TEMP 36–36.4; O2SAT 94–100; BMI 21.5
[2021-11-30 06:32] LABS: Hematocrit 33.8 % (37.0-47.0); Hemoglobin 10.4 g/dL (12.0-15.0); Mean Corpuscular HGB Conc 30.8 g/dl (32-36); Mean Corpuscular Hemoglobin 28.2 pg (26-34); Mean Corpuscular Volume 91.6 fl (80-100); Mean Platelet Volume 8.8 fl (7.4-10.4); Platelet Count Result 589 k/mm3 (150-375); Red Blood Count 3.69 M/mm3 (4.2-5.4); Red Cell Distribution Width 13.9 % (11.5-14.5)
[2021-11-30 06:49] LABS: Albumin Level 3.1 g/dL (3.5-5.1); Anion Gap 3 mmol/L (8-16); Blood Urea Nitrogen 65 mg/dL (7-17); Calcium 10.2 mg/dL (8.4-10.2); Carbon Dioxide 38 mmol/L (22-30); Chloride 103 mmol/L (98-107); Estimated CRCL calculation 20 ml/min; Estimated Glomerular Filt Rate 36; Glucose 126 mg/dL (65-110); Phosphorus 4.9 mg/dL (2.5-4.5); Potassium 3.7 mmol/L (3.4-5.0); Sodium 144 mmol/L (137-145)
--- NOTE | 2021-11-30 08:23 | PM.PNNEP ---
Progress Note: A&P Assessment and Plan (1) Hyponatremia: Code(s): E87.1 - Hypo-osmolality and hyponatremia Status: Acute Assessment and Plan: hyponatremia. evaluation to date: TSH and cortisol okay CT brain normal no culprit medications Most likely due to cancer. slow improvement with combination of fluid restriction, lasix, salt tabs, and demeclocycline Sodium level up to 144. Will stop Lasix And salt tablets. she can follow up with her primary care physician. If there is trouble with her sodium she is welcome to come to our office. Discussed with Dr. Lynne. he is considering sending her home today. (2) Pneumonia: Code(s): J18.9 - Pneumonia, unspecified organism Status: Acute Assessment and Plan: initially presumed to be community acquired however, now concerns for possible aspiration antibiotics adjusted today by Pulmonary (3) Lung mass: Code(s): R91.8 - Other nonspecific abnormal finding of lung field Status: Acute Assessment and Plan: high index of suspicion for malignancy initially s/p biopsy for definitive diagnosis - pathology reports no evidence of malignancy Will continue to follow intermittently while hospitalized. Subjective Date/time seen: 11/30/21 08:23 Interval history: patient is tired. Exam Narrative: General: elderly female in NAD Heart: normal S1 and S2; no rub or gallop Lungs: decreased at the bases Abdomen: soft, nontender, nondistended, positive bowel sounds Extremities: no cyanosis or clubbing; no edema Skin: No rash Objective Data Vital Signs Vital Signs: Vital Signs - 24 hr 11/29/21 09:40 11/29/21 12:00 11/29/21 14:00 Temperature 36.1 C L 36.1 C L Pulse Rate 100 103 H 84 Respiratory Rate 22 H 14 Blood Pressure 108/59 L 120/54 L Pulse Oximetry 99 100 11/29/21 16:00 11/29/21 20:00 11/29/21 22:00 Temperature 36.1 C L Pulse Rate 92 96 96 Respiratory Rate 20 20 Blood Pressure 114/54 L Pulse Oximetry 99 99 11/30/21 00:00 11/30/21 01:21 11/30/21 06:00 Temperature 36.0 C L Pulse Rate 91 77 87 Respiratory Rate 20 Blood Pressure 117/54 L Pulse Oximetry 100 Intake/Output Intake/Output: Intake & Output 11/27/21 11/28/21 11/29/21 11/30/21 23:59 23:59 23:59 23:59 Intake Total 560 2110 1020 50 Balance 560 2110 1020 50 Meds/Results Medications: Active Medications Generic Name Dose Route Start Last Admin Trade Name Freq PRN Reason Stop Dose Admin Acetaminophen 650 mg 11/16/21 17:06 11/27/21 15:58 Acetaminophen 325 Mg Tablet PO 650 mg Q6H PRN Administration Mild Pain (1-3) or Fever Alteplase, Recombinant 2 mg 11/22/21 13:07 11/22/21 13:59 Alteplase 2 Mg Vial (Cathflo) IV PUSH 2 mg ONCE PRN Administration Line Occlusion Alteplase, Recombinant 2 mg 11/22/21 13:07 11/22/21 13:59 Alteplase 2 Mg Vial (Cathflo) IV PUSH 2 mg ONCE PRN Administration Line Occlusion Demeclocycline HCl 150 mg 11/20/21 21:00 11/29/21 20:27 Demeclocycline Hcl 150 Mg Tablet PO 150 mg QID ZENON Administration Enoxaparin Sodium 40 mg 11/16/21 09:00 11/16/21 08:50 Enoxaparin 40 Mg/0.4 Ml Syringe SUB-Q 40 mg DAILY ZENON Administration Levofloxacin/Dextrose 750 mg in 150 mls @ 100 mls/hr 11/20/21 21:00 11/28/21 21:30 Levaquin 750 Mg/D5w 150 Ml IVPB Infused Q48H ZENON Infusion Piperacillin Sod/Tazobactam Sod 2.25 gm in 50 mls @ 100 mls/hr 11/24/21 10:00 11/30/21 04:15 Zosyn 2.25 Gm/D5w 50 Ml IVPB Infused Q6H ZENON Infusion Miscellaneous Information 0 each 11/29/21 00:01 Levaquin Ivpb Needs To Be Renewed Or It Will Automatically Discontinue 11/30. XX 12/29/21 00:00 CLARIFY ZENON Ondansetron HCl 4 mg 11/17/21 07:27 11/17/21 08:14 Ondansetron Inj 4 Mg/2 Ml Vial IV PUSH 4 mg Q6H PRN Administration Nausea And Vomiting Sodium Chloride 20 ml 11/17/21 15:45 C
--- NOTE | 2021-11-30 08:52 | PCOTNOTE ---
Attempted to see patient for OT. Patient not responding to requests to open her eyes, but appeared in hypoaroused state with L eye partially open. Patient did not make an attempt to answer questions, or even shake head yes or no. Patient consoled, and therapist discussed plan of care for patient. Patient is possible d/c today to SNF, however, due to limited participation in OT, patient's frequency should be reduced until patient discharges.
[2021-11-30] MEDS: DEMECLOCYCLINE HCL 150 MG TABLET PO ×4 (09:46→20:22)
--- NOTE | 2021-11-30 10:22 | PM.PNPUL ---
Progress Note: A&P Assessment and Plan (1) Community acquired pneumonia: Code(s): J18.9 - Pneumonia, unspecified organism Status: Acute Assessment and Plan: 86-year-old female with multiple lung nodules presented with hyponatremia, leukocytosis and low-grade fever. In addition to multiple lung nodules she has had a right upper lobe posterior segment consolidation and also RLL smaller consolidation for which she has been treated with antibiotics for possible community-acquired pneumonia. Right lung nodule biopsy showed no evidence of malignancy. There was evidence of chronic inflammation with some fibrosis and rare multinucleated giant cells. Stains for AFB and fungi negative. No leukocytosis on yesterday's CBC WBC went back up to 12 K today. CRP significantly reduced since last week. chest x-ray done yesterday showed possible decrease of the right upper lobe consolidation unclear whether there is true decrease in size or this is all related to chest rotation. IgG4 mildly elevated but this mild elevation does not signify IgG4 syndrome. ANCA testing pending. Plan: antibiotics were discontinued today. Will consider repeat chest CT in a.m.. to document partial clearing of right upper lobe consolidation as suggested by recent chest x-ray. (2) Acute hyponatremia: Code(s): E87.1 - Hypo-osmolality and hyponatremia Status: Acute (3) Hyponatremia: Code(s): E87.1 - Hypo-osmolality and hyponatremia Status: Acute (4) Acute renal failure: Code(s): N17.9 - Acute kidney failure, unspecified Status: Acute Subjective Date/time seen: 11/30/21 10:22 Patient has no new respiratory symptoms. There has been no change of her clinical status over the last 24 hours. She appears awake but not answering questions. She remains afebrile Review of Systems Review of Systems: All systems reviewed & are unremarkable except as noted in HPI and below Exam Narrative: GENERAL APPEARANCE: Well developed, well nourished, alert and cooperative, and appears to be in no acute distress While on room air SKIN: Inspection of the skin reveals no rashes, ulcerations or petechiae. HEENT: Sclerae anicteric and conjunctivae pink and moist. Extraocular movements were intact and pupils were equal, round, and reactive to light. The oral mucosa, hard and soft palate, tongue and posterior pharynx were normal. NECK: Supple. There was no thyroid enlargement, and no tenderness, or masses were felt. LUNGS: Auscultation of the lungs revealed normal breath sounds without any other adventitious sounds or rubs. CARDIAC: There was a regular rate and rhythm without any murmurs. ABDOMEN: Soft and nontender with normal bowel sounds. There was no organomegaly. LYMPH NODES: No lymphadenopathy was appreciated in the neck. EXTREMITIES: No cyanosis, clubbing or edema. NEUROLOGIC: Alert and oriented x 3. Normal affect. Objective Data Vital Signs Vital Signs: Vital Signs - 24 hr 11/29/21 12:00 11/29/21 14:00 11/29/21 16:00 Temperature 36.1 C L Pulse Rate 103 H 84 92 Respiratory Rate 14 Blood Pressure 120/54 L Pulse Oximetry 100 11/29/21 20:00 11/29/21 22:00 11/30/21 00:00 Temperature 36.1 C L Pulse Rate 96 96 91 Respiratory Rate 20 20 Blood Pressure 114/54 L Pulse Oximetry 99 99 11/30/21 01:21 11/30/21 06:00 Temperature 36.0 C L Pulse Rate 77 87 Respiratory Rate 20 Blood Pressure 117/54 L Pulse Oximetry 100 Intake/Output Intake/Output: Intake & Output 11/27/21 11/28/21 11/29/21 11/30/21 23:59 23:59 23:59 23:59 Intake Total 560 2110 1020 50 Balance 560 2110 1020 50 Meds/Results Medications: Active Medications Generic Name Dose Route Start Last Admin Trade Name Freq PRN Reason Stop Dose Admin Acetaminophen 650 mg 11/16/21 17:06 11/27/21 15:58 Acetaminophen 325 Mg Tablet PO 650 mg Q6H PRN Administration Mild Pain (1-3) or Fever Alteplase, Recombinant 2
--- NOTE | 2021-11-30 10:49 | PM.IMPN ---
Progress Note: A&P Assessment and Plan (1) Acute hyponatremia: Code(s): E87.1 - Hypo-osmolality and hyponatremia Status: Acute Assessment and Plan: Probable acute and of chronic hyponatremia worsening today Monitor sodium level Free water restriction Salt tablet Diuresis daily evaluation Status post hypertonic saline Nephrology consult Improved Monitor sodium level Most likely discharge on Monday to rehab 11/23/2021 interval history: 86-year-old female presented with hyponatremia, had been treated hypertonic saline, salt tabs as well treated with fluid restriction patient's sodium has improved today is 131 compared to 118 upon arrival, will increase her restricted free fluid from 800 cc to 1200 cc today will continue to monitor, 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 11/25/2021 interval history: 86-year-old female presented with hyponatremia, had been treated hypertonic saline, salt tabs as well treated with fluid restriction patient's sodium has improved is 128 compared to 118 upon arrival, patient is being treated with slat 1gram TID, spoke with Dr. Cooper, will increase salt tablets 1 g q.i.d. from t.i.d. and increase furosemide 20 mg t.i.d. 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 11/26/2021 interval history: 86-year-old female presented with hyponatremia, had been treated hypertonic saline, salt tabs as well treated with fluid restriction patient's sodium has improved was 128 on 11/25 compared to 118 upon arrival, patient is being treated with slat 1gram TID, on 11/[address] Cooper, increased salt tablets 1 g q.i.d. from t.i.d. and increase furosemide 20 mg t.i.d. 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 patient is not very keen to work with physical therapy, patient is encouraged will continue to monitor. 11/27/2021 interval history: 86-year-old female presented with hyponatremia, had been treated hypertonic saline, salt tabs as well treated with fluid restriction patient's sodium has improved was 128 on 11/25 compared to 118 upon arrival, patient is being treated with slat 1gram TID, on 11/[address] Cooper, increased salt tablets 1 g q.i.d. from t.i.d. and increase furosemide 20 mg
[2021-11-30 10:51] LABS: NIL 0.03 IU/mL; Quantiferon TB Plus, 1T INDETERMINATE (NEGATIVE); TB1-NIL 0.01 IU/mL; TB2-NIL <0.00 IU/mL
--- NOTE | 2021-11-30 11:40 | PCOTNOTE ---
Attempted to see patient this am. Pt not very responsive at this time. Pt slightly opened one eye and shook head side to side.
[2021-11-30] MEDS: ACETAMINOPHEN 325 MG TABLET 650 MG PO (20:21)
[2021-12-01] VITALS (9 sets, daily range): BP systolic 107–128; BP diastolic 55–65; PULSE 75–109; RESP 16–22; TEMP 35.9–36.5; O2SAT 95–100
[2021-12-01] MEDS: ACETAMINOPHEN 325 MG TABLET 650 MG PO (05:02)
[2021-12-01 05:04] LABS: Basophils Percent Auto 0.1 % (0.2-1.2); Hematocrit 35.8 % (37.0-47.0); Hemoglobin 10.9 g/dL (12.0-15.0); Immature Granulocyte Absolute 0.11 K/mm3 (0.00-0.031); Immature Granulocyte Percent A 0.8 % (0-0.5); Lymphocytes Absolute Auto 0.51 K/mm3 (0.9-3.2); Lymphocytes Percent Auto 3.9 % (18.3-44.2); Mean Corpuscular HGB Conc 30.4 g/dl (32-36); Mean Corpuscular Hemoglobin 28.3 pg (26-34); Mean Platelet Volume 9.1 fl (7.4-10.4); Monocytes Absolute Auto 0.9 K/mm3 (0.1-0.6); Monocytes Percent Auto 6.6 % (2.6-8.5); Neutrophils Absolute Auto 11.5 K/mm3 (1.3-6.7); Neutrophils Percent Auto 88.6 % (45.5-73.1); Platelet Count Result 608 k/mm3 (150-375); Red Blood Count 3.85 M/mm3 (4.2-5.4)
[2021-12-01 08:05] LABS: Albumin Level 3.3 g/dL (3.5-5.1); Anion Gap 4 mmol/L (8-16); Blood Urea Nitrogen 84 mg/dL (7-17); CRP 5.2 mg/dL (<1.0); Calcium 10.5 mg/dL (8.4-10.2); Carbon Dioxide 35 mmol/L (22-30); Chloride 106 mmol/L (98-107); Estimated CRCL calculation 20 ml/min; Estimated Glomerular Filt Rate 36; Glucose 106 mg/dL (65-110); Phosphorus 4.6 mg/dL (2.5-4.5); Potassium 4.3 mmol/L (3.4-5.0); Sodium 145 mmol/L (137-145)
[2021-12-01] MEDS: DEMECLOCYCLINE HCL 150 MG TABLET PO ×4 (08:40→20:39)
[2021-12-01] MEDS: methylPREDNISolone SOD SUCC 125 MG VIAL IV PUSH (10:45)
--- NOTE | 2021-12-01 11:12 | PM.DS ---
DS: Admitting Diagnosis Discharge Date December 01, 2021 Admitting Diagnosis With hyponatremia, lung mass DS: Discharge Diagnosis Discharge Diagnosis (1) Acute hyponatremia: Code(s): E87.1 - Hypo-osmolality and hyponatremia Status: Acute Assessment and Plan: Follow-up with Nephrology, demeclocycline started. (2) Lung mass: Code(s): R91.8 - Other nonspecific abnormal finding of lung field Status: Acute Assessment and Plan: Trevon to follow up with Pulmonary (3) Community acquired pneumonia: Code(s): J18.9 - Pneumonia, unspecified organism Status: Acute Assessment and Plan: Antibiotics stopped per Pulmonary, follow up with Pulmonary and discharged (4) Insomnia: Qualifiers: Insomnia type: unspecified Qualified Code(s): G47.00 - Insomnia, unspecified Code(s): G47.00 - Insomnia, unspecified Status: Acute Assessment and Plan: continue lunesta (5) Thrombocytosis: Code(s): D75.839 - Thrombocytosis, unspecified Status: Acute Assessment and Plan: Likely reactive (6) Anemia: Code(s): D64.9 - Anemia, unspecified Status: Acute Assessment and Plan: Monitor on discharge (7) Numbness of left foot: Code(s): R20.8 - Other disturbances of skin sensation Status: Acute Assessment and Plan: September DS: Summary Hospital Course Hospital Course: Saray Deleon [place] discharge diagnoses Time Spent with Patient Time attestation: Total time spent providing and/or coordinating discharge services: Greater than 30 min Exam Narrative: elderly frail Patient is comfortable, NAD HEENT: eyes are clear and none icteric LUNGS: normal respiratory effort HEART: RR S1S2 ABD: not distended Lower extremities: no edema SKIN: nonjaundiced Neuro: grossly intact. Const: General: no acute distress Other: thin, frail HENMT: Mouth: Yes dry mucous membranes Eyes: General: appearance normal, both eyes and all related structures Resp: Auscultation: clear to auscultation bilaterally Cardio: Rate: regular rate Rhythm: regular rhythm GI: Auscultation: normal bowel sounds Other: non tender, non distended Skin: Other: poor skin turgor. Multiple lesions noted on back ?seborrhaic kerratosis vs leser treylat sign Neuro: Other: slow to respond, A&Ox3 Extrem: Right lower extremity: normal to inspection Left lower extremity: normal to inspection Psych: Other: flat affect DS: Data Data Completed and Pending Labs on day of discharge: Labs from last 24 hours 12/01/21 12/01/21 04:47 04:47 WBC 13.0 H RBC 3.85 L Hgb 10.9 L Hct 35.8 L MCV 93.0 MCH 28.3 MCHC 30.4 L RDW 14.0 Plt Count 608 H MPV 9.1 Immature Gran % (Auto) 0.8 H Neut % (Auto) 88.6 H Lymph % (Auto) 3.9 L [place] % (Auto) 6.6 Eos % (Auto) 0.0 Baso % (Auto) 0.1 L Lymph # (Auto) 0.51 L [place] # (Auto) 0.9 H Eos # (Auto) 0.0 Baso # (Auto) 0.0 Abs Immat Gran (auto) 0.11 H Absolute Neuts (auto) 11.5 H Absolute Nucleated RBC 0.0 Nucleated RBC % 0.0 Sodium 145 Potassium 4.3 Chloride 106 Carbon Dioxide 35 H Anion Gap 4 L BUN 84 H D Creatinine 1.40 H Estim Creat Clear Calc 20 Estimated GFR 36 L Glucose 106 Calcium 10.5 H Phosphorus 4.6 H C-Reactive Protein 5.2 H Albumin 3.3 L Discharge Plan Discharge Attending physician on discharge: Ethan Posey Consulting providers: Ethan Victor ; Livan Dupont Discharging Clinician: Ethan Posey Patient Disposition: Home Health Service Activity: no preference Diet: as tolerated Discharge Instructions: Per Care Coordination, patient to discharge with [facility] ([phone]) for PT/OT and mcc. Patient Instructions: Antibiotic Form, Hyponatremia (DC), Community Acquired Pneumonia (DC), Needle Biopsy of the Lung (DC) Stand Alone Forms: Gene
--- NOTE | 2021-12-01 11:44 | PM.PNPUL ---
Progress Note: A&P Assessment and Plan (1) Community acquired pneumonia: Code(s): J18.9 - Pneumonia, unspecified organism Status: Acute Assessment and Plan: 86-year-old female with multiple lung nodules presented with hyponatremia, leukocytosis and low-grade fever. In addition to multiple lung nodules she has had a right upper lobe posterior segment consolidation and also RLL smaller consolidation for which she has been treated with antibiotics for possible community-acquired pneumonia. Right lung nodule biopsy showed no evidence of malignancy. There was evidence of chronic inflammation with some fibrosis and rare multinucleated giant cells. Stains for AFB and fungi negative. mild leucocytosis noted over last two days. CRP significantly reduced since last week. chest CT done today showed no significant change in bilateral consolidations and nodular densities no new infiltrates. despite treatment with antibiotics the bilateral consolidations and nodular densities have remained essentially unchanged. Based on radiological findings and biopsy specimen, the differential diagnosis includes in addition to cryptogenic organizing pneumonia also Georgia's granulomatosis, although no evidence of vasculitis was reported on the lung biopsy report. the patient has worsening renal function and microscopic hematuria. She has been evaluated by nephrology services as well. Creatinine 1.4 which is unchanged from yesterday. ANCA testing pending. Plan: patient was given Solu-Medrol 125 mg IV today. I was told that the patient is being considered for discharge to a [facility] facility today. Will place patient on prednisone 40 mg p.o. daily starting in a.m.. She should stay on prednisone 40 mg p.o. daily for approximately 10 days. Will re-evaluate the patient in about 2 weeks from today. Case was discussed with the hospitalist. (2) Acute hyponatremia: Code(s): E87.1 - Hypo-osmolality and hyponatremia Status: Acute (3) Hyponatremia: Code(s): E87.1 - Hypo-osmolality and hyponatremia Status: Acute (4) Acute renal failure: Code(s): N17.9 - Acute kidney failure, unspecified Status: Acute Subjective Date/time seen: 12/01/21 11:44 Patient with no new respiratory symptoms. Pre more awake today. More communicative than yesterday. Review of Systems Review of Systems: All systems reviewed & are unremarkable except as noted in HPI and below Exam Narrative: GENERAL APPEARANCE: Well developed, well nourished, alert and cooperative, and appears to be in no acute distress SKIN: Inspection of the skin reveals no rashes, ulcerations or petechiae. HEENT: Sclerae anicteric and conjunctivae pink and moist. Extraocular movements were intact and pupils were equal, round, and reactive to light. The oral mucosa, hard and soft palate, tongue and posterior pharynx were normal. NECK: Supple. There was no thyroid enlargement, and no tenderness, or masses were felt. LUNGS: Auscultation of the lungs revealed normal breath sounds without any other adventitious sounds or rubs. CARDIAC: There was a regular rate and rhythm without any murmurs. ABDOMEN: Soft and nontender with normal bowel sounds. There was no organomegaly. LYMPH NODES: No lymphadenopathy was appreciated in the neck. EXTREMITIES: No cyanosis, clubbing or edema. Objective Data Vital Signs Vital Signs: Vital Signs - 24 hr 11/30/21 12:00 11/30/21 14:00 11/30/21 16:00 Temperature 36.1 C L Pulse Rate 90 102 H 100 Respiratory Rate 16 Blood Pressure 115/64 Pulse Oximetry 100 11/30/21 20:00 11/30/21 20:26 11/30/21 21:31 Temperature 36.4 C L Pulse Rate 98 98 Respiratory Rate 20 20 Blood Pressure 107/55 L Pulse Oximetry 98 94 98 12/01/21 00:00 12/01/21 04:00 12/01/21 05:57 Temperature 35.9 C L Pulse Rate 94 109 H 108 H Respiratory Rate 20 Blood Pressure 107/60 Pulse Oximetry 98 12/01/21 08:40 Temper
[2021-12-01 12:02] LABS: Myeloperoxidase Antibody <1.0 AI (<1.0); Proteinase 3 PR3 Antibodies 7.1 AI (<1.0)
--- NOTE | 2021-12-01 12:24 | PM.IMPN ---
Progress Note: A&P Assessment and Plan (1) Acute hyponatremia: Code(s): E87.1 - Hypo-osmolality and hyponatremia Status: Acute Assessment and Plan: Follow-up with Nephrology, demeclocycline started. (2) Lung mass: Code(s): R91.8 - Other nonspecific abnormal finding of lung field Status: Acute Assessment and Plan: Status post biopsy. Per pulmonology, differential includes cryptogenic organizing pneumonia, or possible vasculitis like Epifanio's granulomatosis. Pulmonary is going to start the patient on steroids. Will monitor for couple days. (3) Community acquired pneumonia: Code(s): J18.9 - Pneumonia, unspecified organism Status: Acute Assessment and Plan: Antibiotics stopped per Pulmonary, follow up with Pulmonary and discharged (4) Insomnia: Qualifiers: Insomnia type: unspecified Qualified Code(s): G47.00 - Insomnia, unspecified Code(s): G47.00 - Insomnia, unspecified Status: Acute Assessment and Plan: continue lunesta (5) Thrombocytosis: Code(s): D75.839 - Thrombocytosis, unspecified Status: Acute Assessment and Plan: Likely reactive (6) Anemia: Code(s): D64.9 - Anemia, unspecified Status: Acute Assessment and Plan: Monitor on discharge (7) Numbness of left foot: Code(s): R20.8 - Other disturbances of skin sensation Status: Acute Assessment and Plan: September Subjective Date/time seen: 12/01/21 12:24 Feeling okay, no complaints Exam Narrative: elderly frail Patient is comfortable, NAD HEENT: eyes are clear and none icteric LUNGS: normal respiratory effort HEART: RR S1S2 ABD: not distended Lower extremities: no edema SKIN: nonjaundiced Neuro: grossly intact. Const: General: no acute distress Other: thin, frail HENMT: Mouth: Yes dry mucous membranes Eyes: General: appearance normal, both eyes and all related structures Resp: Auscultation: clear to auscultation bilaterally Cardio: Rate: regular rate Rhythm: regular rhythm GI: Auscultation: normal bowel sounds Other: non tender, non distended Skin: Other: poor skin turgor. Multiple lesions noted on back ?seborrhaic kerratosis vs leser treylat sign Neuro: Other: slow to respond, A&Ox3 Extrem: Right lower extremity: normal to inspection Left lower extremity: normal to inspection Psych: Other: flat affect Objective Data Vital Signs Vital Signs: Vital Signs - 24 hr 11/30/21 14:00 11/30/21 16:00 11/30/21 20:00 Temperature 97 F L Pulse Rate 102 H 100 98 Respiratory Rate 16 20 Blood Pressure 115/64 Pulse Oximetry 100 98 11/30/21 20:26 11/30/21 21:31 12/01/21 00:00 Temperature 97.5 F L Pulse Rate 98 94 Respiratory Rate 20 Blood Pressure 107/55 L Pulse Oximetry 94 98 12/01/21 04:00 12/01/21 05:57 12/01/21 08:40 Temperature 96.6 F L Pulse Rate 109 H 108 H Respiratory Rate 20 Blood Pressure 107/60 Pulse Oximetry 98 95 Intake/Output Intake/Output: Intake & Output 11/28/21 11/29/21 11/30/21 12/01/21 23:59 23:59 23:59 23:59 Intake Total 2110 1020 100 420 Balance 2110 1020 100 420 Meds/Results Medications: Active Medications Generic Name Dose Route Start Last Admin Trade Name Freq PRN Reason Stop Dose Admin Acetaminophen 650 mg 11/16/21 17:06 12/01/21 05:02 Acetaminophen 325 Mg Tablet PO 650 mg Q6H PRN Administration Mild Pain (1-3) or Fever Alteplase, Recombinant 2 mg 11/22/21 13:07 11/22/21 13:59 Alteplase 2 Mg Vial (Cathflo) IV PUSH 2 mg ONCE PRN Administration Line Occlusion Alteplase, Recombinant 2 mg 11/22/21 13:07 11/22/21 13:59 Alteplase 2 Mg Vial (Cathflo) IV PUSH 2 mg ONCE PRN Administration Line Occlusion Demeclocycline HCl 150 mg 11/20/21 21:00 12/01/21 08:40 Demeclocycline Hcl 150 Mg Tablet PO 150 mg QID ZENON Administration Enoxaparin Sodium 40 mg
[2021-12-01 13:37] LABS: Appearance Urine Clear (Clear); Bilirubin Urine Negative (Negative); Blood Urine Negative (Negative); Color Urine Yellow (Yellow); Glucose Urine UA Negative (Negative); Ketones Urine Negative (Negative); Leukocyte Esterase Ur Negative LEU/UL (NEGATIVE); Nitrate Urine Negative (Negative); Protein Urine Negative (Negative); Specific Grav Ur 1.015 (1.001-1.035); Urobilinogen Urine 0.2 mg/dL (<2.0)
[2021-12-01 14:34] LABS: Add Urine Microscopic? NO
[2021-12-01] MEDS: SODIUM CHLORIDE 0.9% IV 1,000 ML 50 ML IV CONT (17:43)
--- NOTE | 2021-12-01 17:47 | PM.PNNEP ---
Progress Note: A&P Assessment and Plan (1) Hyponatremia: Code(s): E87.1 - Hypo-osmolality and hyponatremia Status: Acute Assessment and Plan: hyponatremia. evaluation to date: TSH and cortisol okay CT brain normal no culprit medications Most likely due to pulmonary process. slow improvement with combination of fluid restriction, lasix, salt tabs, and demeclocycline Sodium level up to 145. She is on fluid restriction alone. Lasix and salt tablets have been discontinued. (2) Pneumonia: Code(s): J18.9 - Pneumonia, unspecified organism Status: Acute Assessment and Plan: initially presumed to be community acquired however, now concerns for possible aspiration antibiotics adjusted today by Pulmonary Her PR3 was positive. Dr. Villagomez feels that this might be Georgia's. This is a complicated issue. 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 Her creatinine is high but she was on diuretics. Her urine shows no blood or protein. So it seems that her elevated creatinine may not be caused by inflammation, i.e. Georgia's. If it is not renal involvement then she would be treated by steroids and another mild agent, such as Methotrexate if her GFR is good enough. However her GFR is only 36 now. As stated above I suspect that she might be dehydrated. Some going to give her some IV fluids overnight and see what her creatinine does. With all these questions then renal biopsy may be indicated. I discussed with Dr. Villagomez. He feels that Cytoxan is indicated from the pulmonary standpoint. So the patient will get steroids plus Cytoxan for now and reassess the renal issues as we go. (3) Lung mass: Code(s): R91.8 - Other nonspecific abnormal finding of lung field Status: Acute Assessment and Plan: See above Possibly Georgia's. Subjective Date/time seen: 12/01/21 17:47 Interval history: marginally more energetic today. We discussed her situation. Exam Narrative: General: elderly female in NAD Heart: normal S1 and S2; no rub or gallop Lungs: fairly clear Abdomen: soft, nontender, nondistended, positive bowel sounds Extremities: no cyanosis or clubbing; no edema Skin: No rash or subcu nodules Objective Data Vital Signs Vital Signs: Vital Signs - 24 hr 11/30/21 20:00 11/30/21 20:26 11/30/21 21:31 Temperature 36.4 C L Pulse Rate 98 98 Respiratory Rate 20 20 Blood Pressure 107/55 L Pulse Oximetry 98 94 98 12/01/21 00:00 12/01/21 04:00 12/01/21 05:57 Temperature 35.9 C L Pulse Rate 94 109 H 108 H Respiratory Rate 20 Blood Pressure 107/60 Pulse Oximetry 98 12/01/21 08:40 12/01/21 12:00 12/01/21 13:27 Temperature 36.1 C L Pulse Rate 75 86 Respiratory Rate 16 Blood Pressure 113/55 L Pulse Oximetry 95 97 12/01/21 16:00 Temperature Pulse Rate 83 Respiratory Rate Blood Pressure Pulse Oximetry Intake/Output Intake/Output: Intake & Output 11/28/21 11/29/21 11/30/21 12/01/21 23:59 23:59 23:59 23:59 Intake Total 2110 1020 100 640 Balance 2110 1020 100 640 Meds/Results Medications: Active Medications Generic Name Dose Route Start Last Admin Trade Name Freq PRN Reason Stop Dose Admin Acetaminophen 650 mg 11/16/21 17:06 12/01/21 05:02 Acetaminophen 325 Mg Tablet PO 650 mg Q6H PRN Administration Mild Pain (1-3) or Fever Alteplase, Recombinant 2 mg 11/22/21 13:07 11/22/21 13:59 Alteplase 2 Mg Vial (Cathflo) IV PUSH 2 mg ONCE PRN Administration Line Occlusion Alteplase, Recombinant 2 mg 11/22/21 13:07 11/22/21 13:59 Alteplase 2 Mg Vial (Cathflo) IV PUSH 2 mg ONCE PRN Administration Line Occlusion Demeclocycline HCl 150 mg 11/20/21 21:00 12/01/21 17:43 Demeclocycline Hcl 150 Mg Tablet PO 150 mg QID ZENON Administration Enoxaparin Sodium 40 mg 11/16/21 09:00 11/16
[2021-12-01] MEDS: CENTRAL LINE FLUSH 10 ML IV PUSH (20:39)
[2021-12-02] VITALS (13 sets, daily range): BP systolic 107–113; BP diastolic 48–61; PULSE 65–86; RESP 20; TEMP 35.9–36.4; O2SAT 93–100
[2021-12-02] MEDS: CENTRAL LINE FLUSH 10 ML IV PUSH ×3 (05:36→20:54)
[2021-12-02 05:57] LABS: Hematocrit 31.3 % (37.0-47.0); Hemoglobin 9.9 g/dL (12.0-15.0); Immature Granulocyte Absolute 0.09 K/mm3 (0.00-0.031); Immature Granulocyte Percent A 1.1 % (0-0.5); Lymphocytes Absolute Auto 0.48 K/mm3 (0.9-3.2); Lymphocytes Percent Auto 5.8 % (18.3-44.2); Mean Corpuscular HGB Conc 31.6 g/dl (32-36); Mean Corpuscular Hemoglobin 28.6 pg (26-34); Mean Corpuscular Volume 90.5 fl (80-100); Mean Platelet Volume 9.1 fl (7.4-10.4); Monocytes Absolute Auto 0.3 K/mm3 (0.1-0.6); Monocytes Percent Auto 3.6 % (2.6-8.5); Neutrophils Absolute Auto 7.4 K/mm3 (1.3-6.7); Neutrophils Percent Auto 89.5 % (45.5-73.1); Platelet Count Result 518 k/mm3 (150-375); Red Blood Count 3.46 M/mm3 (4.2-5.4); Red Cell Distribution Width 13.7 % (11.5-14.5); White Blood Count 8.2 K/mm3 (4.5-10.0)
[2021-12-02 06:21] LABS: Albumin Level 2.8 g/dL (3.5-5.1); Anion Gap 7 mmol/L (8-16); Blood Urea Nitrogen 76 mg/dL (7-17); Calcium 9.8 mg/dL (8.4-10.2); Carbon Dioxide 33 mmol/L (22-30); Chloride 101 mmol/L (98-107); Estimated CRCL calculation 22 ml/min; Estimated Glomerular Filt Rate 39; Glucose 110 mg/dL (65-110); Phosphorus 4.4 mg/dL (2.5-4.5); Sodium 141 mmol/L (137-145)
[2021-12-02] MEDS: DEMECLOCYCLINE HCL 150 MG TABLET PO ×4 (08:41→20:54)
--- NOTE | 2021-12-02 09:05 | PM.PNPUL ---
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 In addition to multiple lung nodules she had a right upper lobe posterior segment consolidation and also RLL smaller consolidation for which she has been treated with antibiotics for possible community-acquired pneumonia. Right lung nodule biopsy showed no evidence of malignancy. There was evidence of chronic inflammation with some fibrosis and rare multinucleated giant cells. Stains for AFB and fungi negative. There has been worsening of renal function over the last [address] following treatment for possible community-acquired pneumonia showed essentially no change in size of consolidations and lung nodules. On the basis of the radiological and histopathological findings, recent microscopic hematuria and worsening renal function, the patient was started on treatment with IV steroid pulses for possible Georgia's granulomatosis. She received 0.5 g of Solu-Medrol yesterday and is scheduled to receive another 0.5 g of Solu-Medrol today along with IV Cytoxan 375 mg. Creatinine stable over the last couple of days. No hematuria on last urinalysis yesterday. C Anca pending but PR3 antibody positive. Plan: I would like to transfer patient to a tertiary center to get inpatient consultation with parts back counter man. Case was discussed with the hospitalist. (2) Acute renal failure: Code(s): N17.9 - Acute kidney failure, unspecified Status: Acute (3) Lung nodules: Code(s): R91.8 - Other nonspecific abnormal finding of lung field Status: Acute Subjective Date/time seen: 12/02/21 09:05 patient appears fully awake today. Slept well last night; has no new complaints. Afebrile, on low oxygen flow. Review of Systems Review of Systems: All systems reviewed & are unremarkable except as noted in HPI and below Exam Narrative: GENERAL APPEARANCE: Well developed, well nourished, alert and cooperative, and appears to be in no acute distress SKIN: Inspection of the skin reveals no rashes, ulcerations or petechiae. HEENT: Sclerae anicteric and conjunctivae pink and moist. Extraocular movements were intact and pupils were equal, round. NECK: Supple. There was no thyroid enlargement, and no tenderness, or masses were felt. LUNGS: Auscultation of the lungs revealed normal breath sounds without any other adventitious sounds or rubs. CARDIAC: There was a regular rate and rhythm without any murmurs. ABDOMEN: Soft and nontender with normal bowel sounds. There was no organomegaly. LYMPH NODES: No lymphadenopathy was appreciated in the neck. EXTREMITIES: No cyanosis, clubbing or edema. Objective Data Vital Signs Vital Signs: Vital Signs - 24 hr 12/01/21 12:00 12/01/21 13:27 12/01/21 16:00 Temperature 36.1 C L Pulse Rate 75 86 83 Respiratory Rate 16 Blood Pressure 113/55 L Pulse Oximetry 97 12/01/21 20:00 12/01/21 21:44 12/02/21 00:00 Temperature 36.5 C Pulse Rate 84 77 65 Respiratory Rate 22 H Blood Pressure 128/65 Pulse Oximetry 100 100 12/02/21 04:00 12/02/21 06:00 Temperature 36.4 C Pulse Rate 65 68 Respiratory Rate 20 Blood Pressure 113/61 Pulse Oximetry 100 Intake/Output Intake/Output: Intake & Output 11/29/21 11/30/21 12/01/21 12/02/21 23:59 23:59 23:59 23:59 Intake Total 1020 100 976 300 Balance 1020 100 976 300 Meds/Results Medications: Active Medications Generic Name Dose Route Start Last Admin Trade Name Freq PRN Reason Stop Dose Admin Acetaminophen 650 mg 11/16/21 17:06 12/01/21 05:02 Acetaminophen 325 Mg Tablet PO 650 mg Q6H PRN Administration Mild Pain (1-3) or Fever Alteplase, Recombinant 2 mg 11/22/21 13:07 11/22/21 13:59
--- NOTE | 2021-12-02 09:47 | PM.PNNEP ---
Progress Note: A&P Assessment and Plan (1) Hyponatremia: Code(s): E87.1 - Hypo-osmolality and hyponatremia Status: Acute Assessment and Plan: hyponatremia. evaluation to date: TSH and cortisol okay CT brain normal no culprit medications Most likely due to pulmonary process. Now on demeclocycline alone. Sodium is still normal. Will increased fluid allow aunts. (2) Pneumonia: Code(s): J18.9 - Pneumonia, unspecified organism Status: Acute Assessment and Plan: initially presumed to be community acquired however, now concerns for possible aspiration antibiotics adjusted today by Pulmonary Her PR3 was positive. Talked with Dr. Villagomez again. Will continue IV fluid and see what the creatinine does. Consider renal biopsy if it does not improve. Today the creatinine is better down to 1.3. The patient actually looks better. It looks like she is going to be her over the weekend so consider biopsy on Monday unless the creatinine is normal. (3) Lung mass: Code(s): R91.8 - Other nonspecific abnormal finding of lung field Status: Acute Assessment and Plan: See above Possibly Georgia's. Subjective Date/time seen: 12/02/21 09:47 Interval history: She looks little bit better today. She is thirsty. Exam Narrative: General: elderly female in NAD Heart: normal S1 and S2; no rub v Lungs: fairly clear Abdomen: soft, nontender, nondistended, positive bowel sounds Extremities: no cyanosis or clubbing; no edema Skin: No rash Objective Data Vital Signs Vital Signs: Vital Signs - 24 hr 12/01/21 12:00 12/01/21 13:27 12/01/21 16:00 Temperature 36.1 C L Pulse Rate 75 86 83 Respiratory Rate 16 Blood Pressure 113/55 L Pulse Oximetry 97 12/01/21 20:00 12/01/21 21:44 12/02/21 00:00 Temperature 36.5 C Pulse Rate 84 77 65 Respiratory Rate 22 H Blood Pressure 128/65 Pulse Oximetry 100 100 12/02/21 04:00 12/02/21 06:00 Temperature 36.4 C Pulse Rate 65 68 Respiratory Rate 20 Blood Pressure 113/61 Pulse Oximetry 100 Intake/Output Intake/Output: Intake & Output 11/29/21 11/30/21 12/01/21 12/02/21 23:59 23:59 23:59 23:59 Intake Total 1020 100 976 420 Balance 1020 100 976 420 Meds/Results Medications: Active Medications Generic Name Dose Route Start Last Admin Trade Name Freq PRN Reason Stop Dose Admin Acetaminophen 650 mg 11/16/21 17:06 12/01/21 05:02 Acetaminophen 325 Mg Tablet PO 650 mg Q6H PRN Administration Mild Pain (1-3) or Fever Alteplase, Recombinant 2 mg 11/22/21 13:07 11/22/21 13:59 Alteplase 2 Mg Vial (Cathflo) IV PUSH 2 mg ONCE PRN Administration Line Occlusion Alteplase, Recombinant 2 mg 11/22/21 13:07 11/22/21 13:59 Alteplase 2 Mg Vial (Cathflo) IV PUSH 2 mg ONCE PRN Administration Line Occlusion Demeclocycline HCl 150 mg 11/20/21 21:00 12/02/21 08:41 Demeclocycline Hcl 150 Mg Tablet PO 150 mg QID ZENON Administration Enoxaparin Sodium 40 mg 11/16/21 09:00 11/16/21 08:50 Enoxaparin 40 Mg/0.4 Ml Syringe SUB-Q 40 mg DAILY ZENON Administration Cyclophosphamide 375 mg/ 101.875 mls @ 203.75 mls/hr 12/02/21 12:30 Sodium Chloride IVPB 12/02/21 12:59 ONCE ONE Methylprednisolone Sodium 100 mls @ 200 mls/hr 12/02/21 12:00 Succinate 500 mg/ Dextrose IVPB 12/02/21 12:29 ONCE ONE Sodium Chloride 1,000 mls @ 50 mls/hr 12/01/21 17:05 12/01/21 17:43 Normal Saline Iv IV CONT 50 mls/hr .Q20H ZENON Administration Ondansetron HCl 4 mg 11/17/21 07:27 11/17/21 08:14 Ondansetron Inj 4 Mg/2 Ml Vial IV PUSH 4 mg Q6H PRN Administration Nausea And Vomiting Potassium Chloride 40 meq 12/02/21 09:00 Potassium Chloride 20 Meq Packet (For Liquid) PO 12/03/21 10:00 BID ZENON Sodium Chloride 20 ml 11/17/21 15:45 Central Line Flush IV PUSH PRN HI
--- NOTE | 2021-12-02 10:08 | PM.IMPN ---
Progress Note: A&P Assessment and Plan (1) Acute hyponatremia: Code(s): E87.1 - Hypo-osmolality and hyponatremia Status: Acute Assessment and Plan: Follow-up with Nephrology, demeclocycline started. Na 141 (2) Lung mass: Code(s): R91.8 - Other nonspecific abnormal finding of lung field Status: Acute Assessment and Plan: Status post biopsy. Per pulmonology, diagnosis is Wegners - steroids and cyclophosphamide started. Will need evaluation by metalworking specialist (3) Community acquired pneumonia: Code(s): J18.9 - Pneumonia, unspecified organism Status: Acute Assessment and Plan: Antibiotics stopped per Pulmonary, follow up with Pulmonary and discharged (4) Insomnia: Qualifiers: Insomnia type: unspecified Qualified Code(s): G47.00 - Insomnia, unspecified Code(s): G47.00 - Insomnia, unspecified Status: Acute Assessment and Plan: continue lunesta (5) Thrombocytosis: Code(s): D75.839 - Thrombocytosis, unspecified Status: Acute Assessment and Plan: Likely reactive (6) Anemia: Code(s): D64.9 - Anemia, unspecified Status: Acute Assessment and Plan: Monitor on discharge (7) Numbness of left foot: Code(s): R20.8 - Other disturbances of skin sensation Status: Acute Assessment and Plan: Monitor Subjective Date/time seen: 12/02/21 10:08 no new complaints today Review of Systems Review of Systems: All systems reviewed & are unremarkable except as noted in HPI and below Exam Narrative: elderly frail Patient is comfortable, NAD HEENT: eyes are clear and none icteric LUNGS: normal respiratory effort HEART: RR S1S2 ABD: not distended Lower extremities: no edema SKIN: nonjaundiced Neuro: grossly intact. Const: General: no acute distress Other: thin, frail HENMT: Mouth: Yes dry mucous membranes Eyes: General: appearance normal, both eyes and all related structures Resp: Auscultation: clear to auscultation bilaterally Cardio: Rate: regular rate Rhythm: regular rhythm GI: Auscultation: normal bowel sounds Other: non tender, non distended Skin: Other: poor skin turgor. Multiple lesions noted on back ?seborrhaic kerratosis vs leser treylat sign Neuro: Other: slow to respond, A&Ox3 Extrem: Right lower extremity: normal to inspection Left lower extremity: normal to inspection Psych: Other: flat affect Objective Data Vital Signs Vital Signs: Vital Signs - 24 hr 12/01/21 12:00 12/01/21 13:27 12/01/21 16:00 Temperature 96.9 F L Pulse Rate 75 86 83 Respiratory Rate 16 Blood Pressure 113/55 L Pulse Oximetry 97 12/01/21 20:00 12/01/21 21:44 12/02/21 00:00 Temperature 97.7 F Pulse Rate 84 77 65 Respiratory Rate 22 H Blood Pressure 128/65 Pulse Oximetry 100 100 12/02/21 04:00 12/02/21 06:00 Temperature 97.6 F Pulse Rate 65 68 Respiratory Rate 20 Blood Pressure 113/61 Pulse Oximetry 100 Intake/Output Intake/Output: Intake & Output 11/29/21 11/30/21 12/01/21 12/02/21 23:59 23:59 23:59 23:59 Intake Total 1020 100 976 420 Balance 1020 100 976 420 Meds/Results Medications: Active Medications Generic Name Dose Route Start Last Admin Trade Name Freq PRN Reason Stop Dose Admin Acetaminophen 650 mg 11/16/21 17:06 12/01/21 05:02 Acetaminophen 325 Mg Tablet PO 650 mg Q6H PRN Administration Mild Pain (1-3) or Fever Alteplase, Recombinant 2 mg 11/22/21 13:07 11/22/21 13:59 Alteplase 2 Mg Vial (Cathflo) IV PUSH 2 mg ONCE PRN Administration Line Occlusion Alteplase, Recombinant 2 mg 11/22/21 13:07 11/22/21 13:59 Alteplase 2 Mg Vial (Cathflo) IV PUSH 2 mg ONCE PRN Administration Line Occlusion Demeclocycline HCl 150 mg 11/20/21 21:00 12/02/21 08:41 Demeclocycline Hcl 150 Mg Tablet PO 150 mg QID ZENON Administration Enoxaparin Sodium 40 mg 11/16/21 09:00
[2021-12-02] MEDS: POTASSIUM CHLORIDE 20 MEQ PACKET (FOR LIQUID) 40 MEQ PO ×2 (11:12→17:08)
[2021-12-02] MEDS: methylPREDNISolone SOD SUCC 500 MG in DEXTROSE 5% 100 ML 200 MG IVPB (11:32)
[2021-12-02] MEDS: PHARMACIST COMMUNICATION ORDER 1 EACH XX (11:47)
--- NOTE | 2021-12-02 12:17 | PC.NURSE ---
The chemo nurse gave the chemo.
--- NOTE | 2021-12-02 13:02 | PCOTNOTE ---
Attempted to see patient this pm, however patient unavailable with RN and chemo nurse at this time.
[2021-12-02] MEDS: SODIUM CHLORIDE 0.9% IV 1,000 ML 50 ML IV CONT (13:46)
[2021-12-02 19:18] LABS: Sodium Urine Random 15 meq/L
[2021-12-02 19:19] LABS: Creatinine Urine 22.7 mg/dL; Total Protein Urine Random 10 mg/dL; Ur Ttl Prot Creatinine Ratio 0.44 mg/mg (0-0.20)
[2021-12-03] VITALS (9 sets, daily range): BP systolic 111–112; BP diastolic 52–68; PULSE 72–117; RESP 16–20; TEMP 36.1–36.9; O2SAT 93–97
[2021-12-03] MEDS: CENTRAL LINE FLUSH 10 ML IV PUSH ×3 (05:00→20:44)
[2021-12-03 05:31] LABS: Albumin Level 2.6 g/dL (3.5-5.1); Anion Gap 6 mmol/L (8-16); Blood Urea Nitrogen 62 mg/dL (7-17); Calcium 9.3 mg/dL (8.4-10.2); Carbon Dioxide 28 mmol/L (22-30); Chloride 109 mmol/L (98-107); Estimated CRCL calculation 28 ml/min; Estimated Glomerular Filt Rate 53; Glucose 106 mg/dL (65-110); Phosphorus 3.3 mg/dL (2.5-4.5); Potassium 3.7 mmol/L (3.4-5.0); Sodium 143 mmol/L (137-145)
[2021-12-03] MEDS: DEMECLOCYCLINE HCL 150 MG TABLET PO ×4 (08:58→20:44)
[2021-12-03] MEDS: POTASSIUM CHLORIDE 20 MEQ PACKET (FOR LIQUID) 40 MEQ PO (08:58)
[2021-12-03] MEDS: SODIUM CHLORIDE 0.9% IV 1,000 ML 50 ML IV CONT (09:30)
--- NOTE | 2021-12-03 09:36 | PM.PNPUL ---
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 In addition to multiple lung nodules she had a right upper lobe posterior segment consolidation and also RLL smaller consolidation for which she has been treated with antibiotics for possible community-acquired pneumonia. Right lung nodule biopsy showed no evidence of malignancy. There was evidence of chronic inflammation with some fibrosis and rare multinucleated giant cells. Stains for AFB and fungi negative. Repeat chest CT following treatment for possible community-acquired pneumonia showed essentially no change in size of consolidations and lung nodules. On the basis of the radiological and histopathological findings, recent microscopic hematuria and worsening renal function, positive PR3 antibody, the patient was started on treatment with IV steroid pulses for possible Georgia's granulomatosis. She has received 0.5 g of Solu-Medrol daily for 2 days. Also received IV Cytoxan bolus 375 mg yesterday. Creatinine back down to normal range today. Respiratory status essentially unchanged, with the patient breathing room air. Plan: Will continue with prednisone 40 mg p.o. daily starting today, repeat chest x-ray CRP CBC in a.m. Nephrology will decide whether patient needs renal biopsy. Will get rheumatology consultation. (2) Acute renal failure: Code(s): N17.9 - Acute kidney failure, unspecified Status: Acute (3) Lung nodules: Code(s): R91.8 - Other nonspecific abnormal finding of lung field Status: Acute Subjective Date/time seen: 12/03/21 09:36 Patient has no new respiratory symptoms. Fully awake communicative. Now on room air. Has received IV Cytoxan yesterday. Creatinine down to 1 today. Review of Systems Review of Systems: All systems reviewed & are unremarkable except as noted in HPI and below Exam Narrative: GENERAL APPEARANCE: Well developed, well nourished, alert and cooperative, and appears to be in no acute distress SKIN: Inspection of the skin reveals no rashes, ulcerations or petechiae. HEENT: Sclerae anicteric and conjunctivae pink and moist. Extraocular movements were intact and pupils were equal, round. NECK: Supple. There was no thyroid enlargement, and no tenderness, or masses were felt. LUNGS: Auscultation of the lungs revealed normal breath sounds without any other adventitious sounds or rubs. CARDIAC: There was a regular rate and rhythm without any murmurs. ABDOMEN: Soft and nontender with normal bowel sounds. There was no organomegaly. LYMPH NODES: No lymphadenopathy was appreciated in the neck. EXTREMITIES: No cyanosis, clubbing or edema. Objective Data Vital Signs Vital Signs: Vital Signs - 24 hr 12/02/21 11:04 12/02/21 12:00 12/02/21 13:00 Temperature Pulse Rate 86 69 Respiratory Rate Blood Pressure 107/48 L Pulse Oximetry 95 12/02/21 14:00 12/02/21 16:30 12/02/21 20:00 Temperature 35.9 C L Pulse Rate 72 71 75 Respiratory Rate 20 Blood Pressure 107/52 L Pulse Oximetry 95 99 12/02/21 20:09 12/02/21 21:55 12/03/21 00:00 Temperature 36.4 C Pulse Rate 76 85 Respiratory Rate 20 Blood Pressure 108/50 L Pulse Oximetry 93 99 12/03/21 04:00 12/03/21 06:00 Temperature 36.9 C Pulse Rate 101 H 83 Respiratory Rate 20 Blood Pressure 112/68 Pulse Oximetry 97 Intake/Output Intake/Output: Intake & Output 11/30/21 12/01/21 12/02/21 12/03/21 23:59 23:59 23:59 23:59 Intake Total 008 043 0168 1200 Balance 605 480 3365 1200 Meds/Results Medications: Active Medications Generic Name Dose Route Start Last Admin Trade Name Freq PRN Reason Stop Dose Admin Acetaminophen 650 mg 11/16/21 17:06 12/01/21 05:02
[2021-12-03] MEDS: predniSONE 20 MG TABLET 40 MG PO (10:49)
--- NOTE | 2021-12-03 10:55 | PM.IMPN ---
Progress Note: A&P Assessment and Plan (1) Acute hyponatremia: Code(s): E87.1 - Hypo-osmolality and hyponatremia Status: Acute Assessment and Plan: Follow-up with Nephrology, demeclocycline started. Na is okay (2) Lung mass: Code(s): R91.8 - Other nonspecific abnormal finding of lung field Status: Acute Assessment and Plan: Status post biopsy. Per pulmonology, diagnosis is Wegners - steroids and cyclophosphamide started. Will need evaluation by truss assembler (3) Community acquired pneumonia: Code(s): J18.9 - Pneumonia, unspecified organism Status: Acute Assessment and Plan: Pneumonia not likely (4) Insomnia: Qualifiers: Insomnia type: unspecified Qualified Code(s): G47.00 - Insomnia, unspecified Code(s): G47.00 - Insomnia, unspecified Status: Acute Assessment and Plan: continue lunesta (5) Thrombocytosis: Code(s): D75.839 - Thrombocytosis, unspecified Status: Acute Assessment and Plan: Likely reactive (6) Anemia: Code(s): D64.9 - Anemia, unspecified Status: Acute Assessment and Plan: Monitor (7) Numbness of left foot: Code(s): R20.8 - Other disturbances of skin sensation Status: Acute Assessment and Plan: Monitor Subjective Date/time seen: 12/03/21 10:55 No new complaints Exam Narrative: elderly frail Patient is comfortable, NAD HEENT: eyes are clear and none icteric LUNGS: normal respiratory effort HEART: RR S1S2 ABD: not distended Lower extremities: no edema SKIN: nonjaundiced Neuro: grossly intact. Const: General: no acute distress Other: thin, frail HENMT: Mouth: Yes dry mucous membranes Eyes: General: appearance normal, both eyes and all related structures Resp: Auscultation: clear to auscultation bilaterally Cardio: Rate: regular rate Rhythm: regular rhythm GI: Auscultation: normal bowel sounds Other: non tender, non distended Skin: Other: poor skin turgor. Multiple lesions noted on back ?seborrhaic kerratosis vs leser treylat sign Neuro: Other: slow to respond, A&Ox3 Extrem: Right lower extremity: normal to inspection Left lower extremity: normal to inspection Psych: Other: flat affect Objective Data Vital Signs Vital Signs: Vital Signs - 24 hr 12/02/21 11:04 12/02/21 12:00 12/02/21 13:00 Temperature Pulse Rate 86 69 Respiratory Rate Blood Pressure 107/48 L Pulse Oximetry 95 12/02/21 14:00 12/02/21 16:30 12/02/21 20:00 Temperature 96.7 F L Pulse Rate 72 71 75 Respiratory Rate 20 Blood Pressure 107/52 L Pulse Oximetry 95 99 12/02/21 20:09 12/02/21 21:55 12/03/21 00:00 Temperature 97.6 F Pulse Rate 76 85 Respiratory Rate 20 Blood Pressure 108/50 L Pulse Oximetry 93 99 12/03/21 04:00 12/03/21 06:00 Temperature 98.4 F Pulse Rate 101 H 83 Respiratory Rate 20 Blood Pressure 112/68 Pulse Oximetry 97 Intake/Output Intake/Output: Intake & Output 11/30/21 12/01/21 12/02/21 12/03/21 23:59 23:59 23:59 23:59 Intake Total 442 478 4044 1320 Balance 371 165 8783 1320 Meds/Results Medications: Active Medications Generic Name Dose Route Start Last Admin Trade Name Freq PRN Reason Stop Dose Admin Acetaminophen 650 mg 11/16/21 17:06 12/01/21 05:02 Acetaminophen 325 Mg Tablet PO 650 mg Q6H PRN Administration Mild Pain (1-3) or Fever Alteplase, Recombinant 2 mg 11/22/21 13:07 11/22/21 13:59 Alteplase 2 Mg Vial (Cathflo) IV PUSH 2 mg ONCE PRN Administration Line Occlusion Alteplase, Recombinant 2 mg 11/22/21 13:07 11/22/21 13:59 Alteplase 2 Mg Vial (Cathflo) IV PUSH 2 mg ONCE PRN Administration Line Occlusion Demeclocycline HCl 150 mg 11/20/21 21:00 12/03/21 08:58 Demeclocycline Hcl 150 Mg Tablet PO 150 mg QID ZENON Administration Enoxaparin Sodium 40 mg 11/16/21 09:00 11/16/21 08:50 Enoxapa
--- NOTE | 2021-12-03 11:18 | PM.PNNEP ---
Progress Note: A&P Assessment and Plan (1) Hyponatremia: Code(s): E87.1 - Hypo-osmolality and hyponatremia Status: Acute Assessment and Plan: hyponatremia. evaluation to date: TSH and cortisol okay CT brain normal no culprit medications Most likely due to pulmonary process. Now on demeclocycline alone. Sodium is 143 today. She is off fluid restriction. (2) Pneumonia: Code(s): J18.9 - Pneumonia, unspecified organism Status: Acute Assessment and Plan: Off antibiotics. Discussed with yesterday afternoon. Also discussed with Dr. Posey today. Her creatinine has come down to normal. Her urine shows no blood or protein. I do not think that she has a glomerulonephritis. I do not think a renal biopsy will show us anything. I will let Dr. Villagomez continue management of the Georgia's. Long discussion with the family and also discussions with Dr. Mary and Dr Villagomez. 30 minutes was spent in discussions apart from clinical activity. (3) Lung mass: Code(s): R91.8 - Other nonspecific abnormal finding of lung field Status: Acute Assessment and Plan: See above Possibly Georgia's. Subjective Date/time seen: 12/03/21 11:18 Interval history: She looks better today. More interactive. Daughter from [place] and her fiance are in the room. We discussed the case at length. We discussed the hyponatremia, elevated creatinine, the anti PR3, and the provisional diagnosis of Georgia's. her creatinine has come down to normal and her sodium level is doing well also. Exam Narrative: General: elderly female in NAD Heart: normal S1 and S2; no rub Lungs: fairly clear Abdomen: soft, nontender, nondistended, positive bowel sounds Extremities: no cyanosis or clubbing; no edema Skin: No rash or subcu nodules Objective Data Vital Signs Vital Signs: Vital Signs - 24 hr 12/02/21 12:00 12/02/21 13:00 12/02/21 14:00 Temperature 35.9 C L Pulse Rate 86 69 72 Respiratory Rate 20 Blood Pressure 107/48 L 107/52 L Pulse Oximetry 95 12/02/21 16:30 12/02/21 20:00 12/02/21 20:09 Temperature Pulse Rate 71 75 Respiratory Rate Blood Pressure Pulse Oximetry 99 93 12/02/21 21:55 12/03/21 00:00 12/03/21 04:00 Temperature 36.4 C Pulse Rate 76 85 101 H Respiratory Rate 20 Blood Pressure 108/50 L Pulse Oximetry 99 12/03/21 06:00 Temperature 36.9 C Pulse Rate 83 Respiratory Rate 20 Blood Pressure 112/68 Pulse Oximetry 97 Intake/Output Intake/Output: Intake & Output 11/30/21 12/01/21 12/02/21 12/03/21 23:59 23:59 23:59 23:59 Intake Total 888 889 5762 1320 Balance 505 935 4657 1320 Meds/Results Medications: Active Medications Generic Name Dose Route Start Last Admin Trade Name Freq PRN Reason Stop Dose Admin Acetaminophen 650 mg 11/16/21 17:06 12/01/21 05:02 Acetaminophen 325 Mg Tablet PO 650 mg Q6H PRN Administration Mild Pain (1-3) or Fever Alteplase, Recombinant 2 mg 11/22/21 13:07 11/22/21 13:59 Alteplase 2 Mg Vial (Cathflo) IV PUSH 2 mg ONCE PRN Administration Line Occlusion Alteplase, Recombinant 2 mg 11/22/21 13:07 11/22/21 13:59 Alteplase 2 Mg Vial (Cathflo) IV PUSH 2 mg ONCE PRN Administration Line Occlusion Demeclocycline HCl 150 mg 11/20/21 21:00 12/03/21 08:58 Demeclocycline Hcl 150 Mg Tablet PO 150 mg QID ZENON Administration Enoxaparin Sodium 40 mg 11/16/21 09:00 11/16/21 08:50 Enoxaparin 40 Mg/0.4 Ml Syringe SUB-Q 40 mg DAILY ZENON Administration Sodium Chloride 1,000 mls @ 50 mls/hr 12/01/21 17:05 12/03/21 09:30 Normal Saline Iv IV CONT 50 mls/hr .Q20H ZENON Administration Ondansetron HCl 4 mg 11/17/21 07:27 11/17/21 08:14 Ondansetron Inj 4 Mg/2 Ml Vial IV PUSH 4 mg Q6H PRN Administration Nausea And Vomiting Prednisone 40 m
--- NOTE | 2021-12-03 13:17 | PCNFU ---
Nutrition Follow-Up Complete: Suboptimal po intake related to reduced appetite as evidenced by noted decreased intake of meals. Goal: Increase po intake to 50% or greater most meals Pt is making little progress towards goal. Continue with current goal at this time. Pt current nutrition is Regular/Soft and Bite Sized, L6 diet and dietary supplements Last recorded weight is 51.7 kg, up since last reported wt - unsure if this is accurate. Recommend re-weighing prior to discharge. Bowel Motility: LBM reported 11/28/21 Labs Reviewed: Alb 2.6, Cl 109, GFR 53, BUN 62 Meds Noted: Demeclocycline Hcl, Prednisone Skin: WNL Additional Notes: Current nutrition is a Regular/Soft and Bite Sized, L6 diet and dietary supplements of Ensure Compact BID providing an additional 220kcal and 9g of protein per shake. Reported intake remains around 10% with dinner yesterday (12/02/21) reported at 50% intake. If intake continues to remain poor, recommend increasing dietary supplement from BID to TID. Agree with diet orders at this time. Will continue to follow. Monitor intake, wt, labs. Follow up in 3 days.
--- NOTE | 2021-12-03 14:12 | PCOTNOTE ---
Attempted to see patient this pm, however patient sleeping soundly upon entering and unable to arouse.
--- NOTE | 2021-12-03 15:48 | PM.DS ---
DS: Admitting Diagnosis Discharge Date 12/03/21 Admitting Diagnosis Lung nodule and acute kidney injury DS: Discharge Diagnosis Discharge Diagnosis (1) Acute hyponatremia: Code(s): E87.1 - Hypo-osmolality and hyponatremia Status: Acute Assessment and Plan: Follow-up with Nephrology, demeclocycline started. Na is okay (2) Lung mass: Code(s): R91.8 - Other nonspecific abnormal finding of lung field Status: Acute Assessment and Plan: Status post biopsy. Per pulmonology, diagnosis is Wegners - steroids on dc. Will need evaluation by mobile application development lead on fu (3) Community acquired pneumonia: Code(s): J18.9 - Pneumonia, unspecified organism Status: Acute Assessment and Plan: Pneumonia not likely (4) Insomnia: Qualifiers: Insomnia type: unspecified Qualified Code(s): G47.00 - Insomnia, unspecified Code(s): G47.00 - Insomnia, unspecified Status: Acute Assessment and Plan: continue lunesta (5) Thrombocytosis: Code(s): D75.839 - Thrombocytosis, unspecified Status: Acute Assessment and Plan: Likely reactive (6) Anemia: Code(s): D64.9 - Anemia, unspecified Status: Acute Assessment and Plan: Monitor (7) Numbness of left foot: Code(s): R20.8 - Other disturbances of skin sensation Status: Acute Assessment and Plan: Monitor DS: Summary Hospital Course Hospital Course: Patient was admitted with acute kidney injury and also found have a lung nodule. 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 Patient started on prednisone and will be discharged on prednisone she is going to follow up with Pulmonary. Creatinine has normalized. Time Spent with Patient Time attestation: Total time spent providing and/or coordinating discharge services: Exam Narrative: elderly frail Patient is comfortable, NAD HEENT: eyes are clear and none icteric LUNGS: normal respiratory effort HEART: RR S1S2 ABD: not distended Lower extremities: no edema SKIN: nonjaundiced Neuro: grossly intact. Const: General: no acute distress Other: thin, frail HENMT: Mouth: Yes dry mucous membranes Eyes: General: appearance normal, both eyes and all related structures Resp: Auscultation: clear to auscultation bilaterally Cardio: Rate: regular rate Rhythm: regular rhythm GI: Auscultation: normal bowel sounds Other: non tender, non distended Skin: Other: poor skin turgor. Multiple lesions noted on back ?seborrhaic kerratosis vs leser treylat sign Neuro: Other: slow to respond, A&Ox3 Extrem: Right lower extremity: normal to inspection Left lower extremity: normal to inspection Psych: Other: flat affect DS: Data Data Completed and Pending Labs on day of discharge: Labs from last 24 hours 12/03/21 12/02/21 12/02/21 05:06 18:24 18:24 Sodium 143 Potassium 3.7 Chloride 109 H Carbon Dioxide 28 Anion Gap 6 L BUN 62 H D Creatinine 1.00 Estim Creat Clear Calc 28 Estimated GFR 53 L Glucose 106 Calcium 9.3 Phosphorus 3.3 Albumin 2.6 L U Random Total Protein 10 Ur Random Sodium 15 Urine Creatinine 22.7 Protein/Creat Ratio 2 0.44 H Discharge Plan Discharge Attending physician on discharge: Ethan Posey Consulting providers: Ethan Victor ; Livan Dupont Discharging Clinician: Ethan Posey Patient Disposition: Home Health Service Activity: no preference Diet: as tolerated Discharge Instructions: Per Care Coordination, patient to discharge with [facility] ([phone]) for PT/OT and retirement. Patient Instructions: Antibiotic Form, Hyponatremia (DC), Community Acquired Pneumonia (DC), Needle Biopsy of the Lung (DC) Stand Alone Forms: General Discharge Information Follow-up/Referrals: Livan Dupont MD [Physician] - Ethan Victor MD [Physici
[2021-12-04] VITALS: PULSE 75
[2021-12-04 04:00] VITALS: PULSE 74
[2021-12-04] MEDS: CENTRAL LINE FLUSH 10 ML IV PUSH (05:00)
[2021-12-04] MEDS: CENTRAL LINE FLUSH 20 ML IV PUSH (05:00)
[2021-12-04 05:28] LABS: Anion Gap 2 mmol/L (8-16); Blood Urea Nitrogen 56 mg/dL (7-17); CRP 1.6 mg/dL (<1.0); Calcium 9.2 mg/dL (8.4-10.2); Carbon Dioxide 33 mmol/L (22-30); Chloride 107 mmol/L (98-107); Estimated CRCL calculation 28 ml/min; Estimated Glomerular Filt Rate 53; Glucose 79 mg/dL (65-110); Potassium 3.6 mmol/L (3.4-5.0); Sodium 142 mmol/L (137-145)
[2021-12-04 05:49] LABS: Basophils Percent Auto 0.1 % (0.2-1.2); Hematocrit 31.5 % (37.0-47.0); Immature Granulocyte Absolute 0.09 K/mm3 (0.00-0.031); Immature Granulocyte Percent A 0.9 % (0-0.5); Lymphocytes Absolute Auto 0.61 K/mm3 (0.9-3.2); Lymphocytes Percent Auto 5.9 % (18.3-44.2); Mean Corpuscular HGB Conc 31.7 g/dl (32-36); Mean Corpuscular Hemoglobin 28.2 pg (26-34); Mean Platelet Volume 9.6 fl (7.4-10.4); Monocytes Absolute Auto 0.8 K/mm3 (0.1-0.6); Monocytes Percent Auto 7.3 % (2.6-8.5); Neutrophils Absolute Auto 8.9 K/mm3 (1.3-6.7); Neutrophils Percent Auto 85.8 % (45.5-73.1); Platelet Count Result 462 k/mm3 (150-375); Red Blood Count 3.54 M/mm3 (4.2-5.4); Red Cell Distribution Width 13.6 % (11.5-14.5); White Blood Count 10.4 K/mm3 (4.5-10.0)
[2021-12-04 06:00] VITALS: BP 111/65; PULSE 80; RESP 18; TEMP 36.2; O2SAT 96
[2021-12-04 08:00] VITALS: PULSE 92
[2021-12-04 08:19] VITALS: O2SAT 93
--- NOTE | 2021-12-04 09:44 | PM.DS ---
DS: Admitting Diagnosis Discharge Date December 04, 2021 Admitting Diagnosis [place]'s DS: Discharge Diagnosis Discharge Diagnosis (1) Acute hyponatremia: Code(s): E87.1 - Hypo-osmolality and hyponatremia Status: Acute Assessment and Plan: Follow-up with Nephrology, demeclocycline started. Na is okay (2) Lung mass: Code(s): R91.8 - Other nonspecific abnormal finding of lung field Status: Acute Assessment and Plan: Status post biopsy. Per pulmonology, diagnosis is Wegners - steroids on dc. Will need evaluation by weight guesser on fu (3) Community acquired pneumonia: Code(s): J18.9 - Pneumonia, unspecified organism Status: Acute Assessment and Plan: Pneumonia not likely (4) Insomnia: Qualifiers: Insomnia type: unspecified Qualified Code(s): G47.00 - Insomnia, unspecified Code(s): G47.00 - Insomnia, unspecified Status: Acute Assessment and Plan: continue lunesta (5) Thrombocytosis: Code(s): D75.839 - Thrombocytosis, unspecified Status: Acute Assessment and Plan: Likely reactive (6) Anemia: Code(s): D64.9 - Anemia, unspecified Status: Acute Assessment and Plan: Monitor (7) Numbness of left foot: Code(s): R20.8 - Other disturbances of skin sensation Status: Acute Assessment and Plan: Monitor DS: Summary Hospital Course Hospital Course: See planning discharge diagnoses for discharge instructions and hospital course Time Spent with Patient Time attestation: Total time spent providing and/or coordinating discharge services: Exam Narrative: elderly frail Patient is comfortable, NAD HEENT: eyes are clear and none icteric LUNGS: normal respiratory effort HEART: RR S1S2 ABD: not distended Lower extremities: no edema SKIN: nonjaundiced Neuro: grossly intact. Const: General: no acute distress Other: thin, frail HENMT: Mouth: Yes dry mucous membranes Eyes: General: appearance normal, both eyes and all related structures Resp: Auscultation: clear to auscultation bilaterally Cardio: Rate: regular rate Rhythm: regular rhythm GI: Auscultation: normal bowel sounds Other: non tender, non distended Skin: Other: poor skin turgor. Multiple lesions noted on back ?seborrhaic kerratosis vs leser treylat sign Neuro: Other: slow to respond, A&Ox3 Extrem: Right lower extremity: normal to inspection Left lower extremity: normal to inspection Psych: Other: flat affect DS: Data Data Completed and Pending Labs on day of discharge: Labs from last 24 hours 12/04/21 12/04/21 05:07 05:07 WBC 10.4 H RBC 3.54 L Hgb 10.0 L Hct 31.5 L MCV 89.0 MCH 28.2 MCHC 31.7 L RDW 13.6 Plt Count 462 H MPV 9.6 Immature Gran % (Auto) 0.9 H Neut % (Auto) 85.8 H Lymph % (Auto) 5.9 L [place] % (Auto) 7.3 Eos % (Auto) 0.0 Baso % (Auto) 0.1 L Lymph # (Auto) 0.61 L [place] # (Auto) 0.8 H Eos # (Auto) 0.0 Baso # (Auto) 0.0 Abs Immat Gran (auto) 0.09 H Absolute Neuts (auto) 8.9 H Absolute Nucleated RBC 0.0 Nucleated RBC % 0.0 Sodium 142 Potassium 3.6 Chloride 107 Carbon Dioxide 33 H Anion Gap 2 L BUN 56 H Creatinine 1.00 Estim Creat Clear Calc 28 Estimated GFR 53 L Glucose 79 Calcium 9.2 C-Reactive Protein 1.6 H Discharge Plan Discharge Attending physician on discharge: Ethan Posey Consulting providers: Ethan Victor ; Livan Dupont Discharging Clinician: Ethan Posey Patient Disposition: Home Health Service Activity: no preference Diet: as tolerated Discharge Instructions: Per Care Coordination, patient to discharge with [facility] ([phone]) for PT/OT and fpc. Patient Instructions: Antibiotic Form, Hyponatremia (DC), Community Acquired Pneumonia (DC), Needle Biopsy of the Lung (DC) Stand Alone Forms: General Discharg
[2021-12-04] MEDS: predniSONE 20 MG TABLET 40 MG PO (09:48)
[2021-12-04] MEDS: DEMECLOCYCLINE HCL 150 MG TABLET PO ×2 (09:48→13:15)
[2021-12-04 11:42] LABS: ANCA Screen P-ANCA POS (Negative); P-ANCA Titer 1:20 Titer (<1:20); P-ANCA Titer Reflex Chg Test YES
[2021-12-04 12:00] VITALS: PULSE 92
[2021-12-04] MEDS: NEOMYCIN/POLYMYXIN/BACITRACIN OINTMENT PACKET 1 PACKET (13:15)
== END 2021-12-04 14:50 | DRG 543 ==
LOC: ANHED 19:46 → ANH3MEDSUR 20:41
PROVIDERS: Family Medicine; Internal Medicine; Internal Medicine Nephrology; Internal Medicine Pulmonary Disease; Admitting Provider Internal Medicine; Emergency Provider Emergency Medicine; PCP Emergency Medicine; Visit Provider Chiropractor
DX: M31.30 Wegener's granulomatosis without renal involvement (principal); E87.1 Hypo-osmolality and hyponatremia; N17.9 Acute kidney failure, unspecified; Z20.822 Contact with and (suspected) exposure to COVID-19; M81.0 Age-related osteoporosis without current pathological fracture; G47.00 Insomnia, unspecified; D64.9 Anemia, unspecified; D75.839 Thrombocytosis, unspecified; J32.9 Chronic sinusitis, unspecified; R20.0 Anesthesia of skin; Z79.899 Other long term (current) drug therapy; Z88.0 Allergy status to penicillin
CPT/HCPCS: 32408; 36415; 36569; 36600; 70450; 71045; 71046; 71250; 74177; 80048; 80053; 80069; 81001; 81003; 82533; 82570; 82652; 82728; 82784; 82787; 82805; 82948; 83540; 83550; 83605; 83735; 83930; 84100; 84155; 84156; 84165; 84295; 84300; 84443; 85025; 85027; 85610; 85730; 86036; 86140; 86200; 86430; 86480; 87040; 87081; 87385; 87449; 87899; 88305; 88312; 92610; 92611; 93005; 96365; 96366; 96367; 96372; 96375; 97110; 97161; 97165; 97530; 97535; 99285; A9270; C1751; C9803; G0378; J0456; J0696; J1650; J1956; J2405; J2543; J2930; J2997; J3475; J3480; J7030; J7040; J7060; J7131; J7512; J9070; Q9967; U0003; U0005